=== PATIENT | male | born 1945 | race Caucasian/White ===

== ENCOUNTER 2017-08-18 19:43 | Emergency (ER) | payer OTHER, MEDICARE ==
--- NOTE | 2017-08-18 21:56 | EDPHYS ---
Physician Documentation [facility] Name: Toño Currie Age: 71 yrs Sex: Male : 1945 Arrival Date: 08/18/2017 Time: 19:46 Bed 23 Private MD: Alfredo Dee ED Physician Dhruv Varghese HPI: 08/18 21:50 This 71 yrs old Male presents to ER via Ambulatory with complaints of Fever, alonzo Sinus Congestion. 21:50 The patient reports fever, that was measured at 99.4 degrees Fahrenheit. Onset: The alonzo symptoms/episode began/occurred 3 day(s) ago. Modifying factors: there are no obvious modifying factors. Associated signs and symptoms: Pertinent positives: cough, sinus congestion, sinus drainage. Severity of symptoms: At their worst the symptoms were mild in the emergency department the symptoms are unchanged. The patient has not experienced similar symptoms in the past. Historical: - Allergies: 20:12 No Known Allergies; lk1 - PMHx: 20:12 Hypertension; lk1 - PSHx: 20:12 mole removed that was melanoma; lk1 - Immunization history:: Adult Immunizations up to date. - Social history:: Smoking status: Patient/guardian denies using tobacco. - Family history:: not pertinent. ROS: 21:50 Constitutional: Negative for fever, chills, and weight loss, Eyes: Negative for injury, alonzo pain, redness, and discharge, Neck: Negative for injury, pain, and swelling, Cardiovascular: Negative for chest pain, palpitations, and edema, Respiratory: Negative for shortness of breath, cough, wheezing, and pleuritic chest pain, Abdomen/GI: Negative for abdominal pain, nausea, vomiting, diarrhea, and constipation, Back: Negative for injury and pain, : Negative for injury, bleeding, discharge, and swelling, MS/Extremity: Negative for injury and deformity, Skin: Negative for injury, rash, and discoloration, Neuro: Negative for headache, weakness, numbness, tingling, and seizure, Psych: Negative for depression, anxiety, suicide ideation, homicidal ideation, and hallucinations, Allergy/Immunology: Negative for hives, rash, and allergies, Endocrine: Negative for neck swelling, polydipsia, polyuria, polyphagia, and marked weight changes, Hematologic/Lymphatic: Negative for swollen nodes, abnormal bleeding, and unusual bruising. 21:50 ENT: Positive for sinus congestion, sinus pain. Exam: 21:50 Constitutional: This is a well developed, well nourished patient who is awake, alert, alonzo and in no acute distress. Head/Face: Normocephalic, atraumatic. Eyes: Pupils equal round and reactive to light, extra-ocular motions intact. Lids and lashes normal. Conjunctiva and sclera are non-icteric and not injected. Cornea within normal limits. Periorbital areas with no swelling, redness, or edema. Neck: Trachea midline, no thyromegaly or masses palpated, and no cervical lymphadenopathy. Supple, full range of motion without nuchal rigidity, or vertebral point tenderness. No Meningismus. Chest/axilla: Normal chest wall appearance and motion. Nontender with no deformity. No lesions are appreciated. Cardiovascular: Regular rate and rhythm with a normal S1 and S2. No gallops, murmurs, or rubs. Normal PMI, no JVD. No pulse deficits. Respiratory: Lungs have equal breath sounds bilaterally, clear to auscultation and percussion. No rales, rhonchi or wheezes noted. No increased work of breathing, no retractions or nasal flaring. Abdomen/GI: Soft, non-tender, with normal bowel sounds. No distension or tympany. No guarding or rebound. No evidence of tenderness throughout. Back: No spinal tenderness. No costovertebral tenderness. Full range of motion. Male : Normal genitalia with no discharge or lesions. Skin: Warm, dry with normal turgor. Normal color with no rashes, no lesions, and no evidence of cellulitis. MS/ Extremity: Pulses equal, no cyanosis. Neurovascular intact. Full, normal range of motion. Neuro: Awake and alert, GCS 15, oriented to person, place, time, and situation. Cranial nerves II-XII grossly intact. Motor strength 5/5 in all extremities. Sensory grossly intact. Cerebellar exam normal. Normal gait. Psych: Awake, alert, with orientation to person, place and time. Behavior, mood, and affect are within normal limits. 21:50 ENT: Nose: nasal drainage, that is minimal, and is seen coming from both nares. 21:56 Musculoskeletal/extremity: DVT Exam: No signs of deep vein thrombosis. no pain, no alonzo swelling, no tenderness, negative Homans' sign noted on exam, no appreciated bluish discoloration, no erythema, no increased warmth. Vital Signs: 20:12 BP 138 / 63; Pulse 86; Resp 16; Temp 98.3(TE); Pulse Ox 97% on R/A; Weight 83.91 kg lk1 (R); Height 5 ft. 9 in. (175.26 cm) (R); Pain 0/10; 22:08 BP 136 / 67; Pulse 77; Resp 16; Pulse Ox 97% on R/A; mb3 20:12 Body Mass Index 27.32 (83.91 kg, 175.26 cm) lk1 MDM: 20:51 Patient medically screened. [facility] 21:56 Data reviewed: vital signs, nurses notes. [facility] Administered Medications: 21:55 Drug: Augmentin 875 mg Route: PO; mb3 22:03 Follow up: Response: No adverse reaction mb3 Disposition: 08/18/17 21:56 Discharged to Home. Impression: Fever, unspecified, Acute sinusitis. - Condition is Stable. - Discharge Instructions: Fever, Adult, Sinusitis, Adult, Sinusitis, Igop-br-Btdr. - Prescriptions for Augmentin 875- 125 mg Oral Tablet - take 1 tablet by ORAL route every 12 hours for 10 days; 20 tablet. Medrol (Pete) 4 mg Oral Tablets, Dose Pack - take 1 tablet by ORAL route as directed - follow package instructions; 1 packet. - Medication Reconciliation Form, Thank You Letter, Antibiotic Education, Prescription Opioid Use form. - Follow up: Alfredo Dee MD; When: 2 - 3 days; Reason: Recheck today's complaints, Continuance of care, Re-evaluation by your physician. - Problem is new. - Symptoms have improved. Signatures: Dhruv Varghese MD MD cha Kluge, Leah RN RN lk1 Michael Lopez, RN RN mb3 Corrections: (The following items were deleted from the chart) 22:14 21:56 08/18/2017 21:56 Discharged to Home. Impression: Fever, unspecified; Acute mb3 sinusitis. Condition is Stable. Forms are Medication Reconciliation Form, Thank You Letter, Antibiotic Education, Prescription Opioid Use. Follow up: Alfredo Dee; When: 2 - 3 days; Reason: Recheck today's complaints, Continuance of care, Re-evaluation by your physician. Problem is new. Symptoms have improved. alonzo
--- NOTE | 2017-08-18 21:56 | ER ---
Nurse's Notes [facility] Name: Toño Currie Age: 71 yrs Sex: Male : 1945 Arrival Date: 08/18/2017 Time: 19:46 Bed 23 Private MD: Alfredo Dee Diagnosis: Fever, unspecified;Acute sinusitis Presentation: 08/18 20:10 Presenting complaint: Patient states: I have been having sinus problems for 3-4 weeks. lk1 Transition of care: patient was not received from another setting of care. Onset of symptoms was July 28, 2017. Initial Sepsis Screen: Does the patient meet any 2 criteria? No. Patient's initial sepsis screen is negative. Does the patient have a suspected source of infection? No. Patient's initial sepsis screen is negative. Care prior to arrival: None. 20:10 Method Of Arrival: Ambulatory lk1 20:10 Acuity: MISTI 4 lk1 Triage Assessment: 20:12 General: Appears in no apparent distress. Behavior is calm, cooperative, appropriate lk1 for age. Pain: Denies pain. 20:12 Respiratory: Airway is patent Respiratory effort is even, unlabored, Respiratory lk1 pattern is regular, symmetrical, Sputum is clear blood streaked. Historical: - Allergies: 20:12 No Known Allergies; lk1 - PMHx: 20:12 Hypertension; lk1 - PSHx: 20:12 mole removed that was melanoma; lk1 - Immunization history:: Adult Immunizations up to date. - Social history:: Smoking status: Patient/guardian denies using tobacco. - Family history:: not pertinent. Screenin:13 Abuse screen: Denies threats or abuse. Nutritional screening: No deficits noted. mb3 Tuberculosis screening: No symptoms or risk factors identified. Fall Risk None identified. Assessment: 22:11 General: Appears in no apparent distress. comfortable, Behavior is calm, cooperative, mb3 appropriate for age. Pain: Denies pain. Neuro: No deficits noted. Cardiovascular: No deficits noted. Respiratory: No deficits noted. GI: No deficits noted. No signs and/or symptoms were reported involving the gastrointestinal system. : No deficits noted. No signs and/or symptoms were reported regarding the genitourinary system. Vital Signs: 20:12 BP 138 / 63; Pulse 86; Resp 16; Temp 98.3(TE); Pulse Ox 97% on R/A; Weight 83.91 kg lk1 (R); Height 5 ft. 9 in. (175.26 cm) (R); Pain 0/10; 22:08 BP 136 / 67; Pulse 77; Resp 16; Pulse Ox 97% on R/A; mb3 20:12 Body Mass Index 27.32 (83.91 kg, 175.26 cm) lk1 ED Course: 19:46 Patient arrived in ED. es 19:46 Alfredo Dee MD is Private Physician. es 20:11 Triage completed. lk1 20:14 Arm band placed on right wrist. lk1 20:51 Dhruv Varghese MD is Attending Physician. [facility] 21:55 Alfredo Dee MD is Referral Physician. [facility] 21:56 Michael Lopez, RN is Primary Nurse. mb3 22:13 Patient has correct armband on for positive identification. mb3 22:13 No provider procedures requiring assistance completed. Patient did not have IV access mb3 during this emergency room visit. Administered Medications: 21:55 Drug: Augmentin 875 mg Route: PO; mb3 22:03 Follow up: Response: No adverse reaction mb3 Outcome: 21:56 Discharge ordered by . [facility] 22:14 Discharged to home ambulatory. mb3 22:14 Condition: stable 22:14 Discharge instructions given to patient, Instructed on discharge instructions, follow up and referral plans. medication usage, Demonstrated understanding of instructions, follow-up care, medications, Prescriptions given X 2. 22:14 Patient left the ED. mb3 Signatures: Dhruv Varghese MD MD cha Salyer, Edna es Kluge, Leah RN RN lk1 Michael Lopez RN RN mb3
[2017-08-18] MEDS ORDERED: AMOX/K CLAV 875 MG TAB ONE (22:00)
== END 2017-08-18 22:14 | disposition home or self-care (01) ==
LOC: ER 19:43
DX: J01.90 Acute sinusitis, unspecified (principal)
CPT/HCPCS: 99283

== ENCOUNTER 2017-09-13 06:31 | Day surgery (SDC) | payer OTHER, MEDICARE ==
--- NOTE | 2017-09-12 15:26 | RAD REPORT ---
EXAM DESCRIPTION: RAD - Chest Pa And Lat (2 Views) - 09/12/2017 3:21 pm CLINICAL HISTORY: Hypertension COMPARISON: 05/21/2015 FINDINGS: The lungs are clear. The heart is normal in size. No displaced fractures. IMPRESSION: No acute or concerning finding suspected.
[2017-09-12 16:09] LABS: Absolute Lymphocytes (CBC) 2.9 K/uL (0.7-4.9); Absolute Monocytes 0.5 K/uL (0.1-1.3); Absolute Neutrophil 2.5 K/uL (1.8-8.0); Eosinophils % 4.6 % (0-4.4); Hematocrit 45.2 % (39.6-49.0); Lymphocytes % 46.8 % (15.3-44.8); MCH 30.1 pg (27.0-35.0); MCV 90.2 fL (80-100); MPV 8.1 fL (7.6-11.3); Monocytes % 7.5 % (3.3-12.3); RBC Red Blood Cell Count 5.01 M/uL (4.33-5.43)
[2017-09-12 16:14] LABS: BUN Blood Urea Nitrogen 16 mg/dL (6-20); Bicarbonate 29 mEq/L (21-31); Glucose Level 111 mg/dL (65-120); Potassium 3.7 mEq/L (3.6-5.0); Sodium Level 138 mEq/L (135-145)
--- NOTE | 2017-09-13 06:23 | EKG ---
Test Date: 2017-09-12 Test Time: 15:09:21 [facility] Supervisor: DENISE MEASUREMENT RESULTS: Intervals: Rate: 79 MN: 158 QRSD: 94 QT: 392 QTc: 449 [place]: P: 65 MN: 158 QRS: 55 T: 56 INTERPRETIVE STATEMENTS: Sinus rhythm with occasional premature ventricular complexes Otherwise normal ECG Compared to ECG 05/21/2015 13:42:59 Ventricular premature complex(es) now present Electronically Signed On 09-13-17 06:22:33 CDT by Clemente Hutson
[2017-09-13] MEDS ORDERED: Ringers Lactate 1,000 ML IV ONE (07:19)
[2017-09-13] MEDS ORDERED: CEFAZOLIN/SWI 1gm 1 GM/10 ML SYR ONE (07:20)
[2017-09-13] MEDS ORDERED: LIDOCAINE 1% MPF 5 ML VIAL ONE (10:02)
[2017-09-13] MEDS ORDERED: PROPOFOL 200 MG/20 ML VIAL IV ONE (10:02)
[2017-09-13] MEDS ORDERED: FENTANYL CITR 100 MCG/2 ML ONE (10:03)
[2017-09-13] MEDS ORDERED: KETOROLAC 30 MG/ML INJ ONE (10:31)
--- NOTE | 2017-09-13 11:10 | P.BOP ---
Preoperative diagnosis: tender back subcutaneous mass x 2 Postoperative diagnosis: same Primary procedure: 1. Excisional biopsy upper back subcutaneous mass 4x4cm with layer closure Secondary procedure: 2. Excisional biopsy mid back subcutaneous mass 2x2cm with layer closure Estimated blood loss: <10cc Specimen: masses Findings: as above Anesthesia: General Complications: None Transferred to: Recovery Room Condition: Good
--- NOTE | 2017-09-15 01:45 | OP ---
Date of Procedure: 09/13/2017 Surgeon: Cullen Osorio MD Preoperative Diagnosis: Tender back, subcutaneous mass x2. Postoperative Diagnosis: Tender back, subcutaneous mass x2. Procedures: 1.Excisional biopsy of upper back subcutaneous mass 4 x 4 cm with layered closure. 2.Excisional biopsy of mid back subcutaneous mass 2 x 2 cm with layered closure. Specimen: Masses. Anesthesia: General plus local. Indications: This is the case of a 72-year-old patient, who came to us with 2 masses. They are incr easing in size and giving him pain and discomfort. He wants them excised. The benefits, alternative s, and risks of excision were fully explained which include but are not limited to infection, bleedin g, damage to adjacent structures, anesthesia complication, nonhealing wound, CT, and even . He also understands this may not relieve any symptoms. He might need more than one surgical interventio n. He understood and signed the consent. The area of concern was marked by me and the patient in the holding room. The patient has history of melanoma that is what he wants them excised. Procedure In Detail: The patient was brought to the operating room, placed in supine position. Anes thesia was done without complication. The patient was placed in lateral decubitus position with prop er protection. Both areas were prepped and draped in sterile fashion. These were in 2 different loc ations, so we had made 2 different incisions on the skin. The first one was done in the upper back a zully that was 4 x 4 cm in size. A wedge incision of the skin was done to include the skin and subcuta neous tissue to get. This went all the way down to the fascia of the muscle but does not penetrate t he muscle. The mass was completely excised. The area was irrigated. Hemostasis obtained and the ar ea was closed with 0 chromic layers approximating the fascia and 0 chromic approximating the subcutan eous tissue. Then the skin was closed with 2-0 nylon in a suture mattress fashion multiple times. T his was after irrigation and suction and after applying local anesthetic. Then, we went to the lower back area, when we proceed to do the same way. A wedge incision in the sk in all the way to the deep subcutaneous tissue. The area was irrigated. Hemostasis obtained. We pr oceeded to close the area with 0 chromic in the deep tissues, 3-0 chromic in the mid tissue, and then a zojyaf-tc-bhord fashion 2-0 nylon in the outside area. Each mass was sent individually. The armida ent tolerated the procedure well. Area was covered with sterile dressings. Sponge count and instrum ent counts were correct. The patient sent to recovery in stable condition. DISCHARGE SUMMARY Diagnosis: Tender back subcutaneous masses. Procedure: Excisional biopsy, upper back and midback subcutaneous masses. Disposition: Home. Activity: As tolerated. No heavy lifting. Followup: Follow up in my office in 1 week. Call for appointment [phone]. Keep area dry for 48 ho urs, then may shower. Medications: See orders. TRANG/MODL Voice ID: [id number] Report ID: [id number]
== END 2017-09-13 12:50 | disposition home or self-care (01) ==
LOC: OR 06:31
PROVIDERS: ATTEND Surgery
PROC: 0JB70ZZ Excision of Back Subcutaneous Tissue and Fascia, Open Approach (ICD-10-PCS; 2017-09-13)
PROC: 0JB70ZZ Excision of Back Subcutaneous Tissue and Fascia, Open Approach (ICD-10-PCS; 2017-09-13)
PROC: 0JQ70ZZ Repair Back Subcutaneous Tissue and Fascia, Open Approach (ICD-10-PCS; principal; 2017-09-13 08:15)
DX: L72.0 Epidermal cyst (principal); I10 Essential (primary) hypertension; Z85.9 Personal history of malignant neoplasm, unspecified; Z82.49 Family history of ischemic heart disease and other diseases of the circulatory system; Z80.9 Family history of malignant neoplasm, unspecified
CPT/HCPCS: 11402; 11404; 12032; 36415; 71046; 80048; 85025; 88304; 93005; J0690; J3010

== ENCOUNTER 2018-04-09 07:37 | Day surgery (SDC) | payer OTHER, MEDICARE ==
[2018-04-09] MEDS ORDERED: EPINEPHRINE/PF 1 MG/ML AMP ONE (08:07)
[2018-04-09] MEDS ORDERED: DUOVISC 1 KIT OPTH ONE (08:07)
[2018-04-09] MEDS ORDERED: NS 0.9% VIAL 10 ML ONE (08:07)
[2018-04-09] MEDS ORDERED: BALANCED SALT IRRIG PLAIN 500 ML BTL IRR ONE (08:07)
[2018-04-09] MEDS ORDERED: LIDOCAINE 1% MPF 2 ML AMPULE ONE (08:08)
[2018-04-09] MEDS ORDERED: MOXIFLOXACIN HCL 10 DROPS/ML **OR USE OPTH ONE (08:08)
[2018-04-09] MEDS ORDERED: BUPIVACAINE 0.25% PF 10 ML VIAL ONE (08:37)
[2018-04-09] MEDS ORDERED: TETRACAINE HCL 0.5% 2ML OPTH ONE (08:37)
[2018-04-09] MEDS ORDERED: LIDOCAINE 2% MPF 5 ML VIAL ONE (08:37)
[2018-04-09] MEDS ORDERED: NA CHLORIDE 0.9% 500 ML ONE (08:38)
[2018-04-09] MEDS ORDERED: LIDOCAINE HCL/PF 3.5% OPTH GEL ONE (08:48)
[2018-04-09] MEDS: CYCLOPENTOLATE 1% OPTH 2 ML ONE ×3 (08:53→09:03)
[2018-04-09] MEDS ORDERED: MIDAZOLAM HCL 2 MG/2 ML INJ ONE (10:09)
[2018-04-09] MEDS ORDERED: FENTANYL CITR 100 MCG/2 ML ONE (10:26)
--- NOTE | 2018-04-09 10:41 | P.BOP ---
Preoperative diagnosis: Nuclear sclerotic cataract OD Postoperative diagnosis: Same Primary procedure: Phacoemulsification with IOL OD Estimated blood loss: None Anesthesia: Local (Topical with anesthesia for cataract surgery) Complications: None Implants: ZCB00 +21.5 Transferred to: Other (Day surgery) Condition: Good
--- NOTE | 2018-04-09 22:24 | OP ---
Date of Procedure: 04/09/2018 Surgeon: Riya Lockhart MD Anesthesiologist: Maynor Velasquez CRNA and Vini Aguayo M.D. Preoperative Diagnosis: Nuclear sclerotic cataract, OD. Operation Performed: Phacoemulsification with intraocular lens implant, OD. Anesthesia: Per cataract surgery. Complications: None. Description Of Procedure: In the operating room the patient was prepped and draped in the usual sterile fashion for ophthalmic surgery. A lid speculum was placed in the OD. Two paracentesis sites were made superiorly and inferiorly in the limbal cornea. Viscoat was placed in the anterior chamber and a crescent blade was used to make a corneal groove and tunnel, and a keratome was used to enter the anterior chamber. Provisc was placed in the anterior chamber and a 360 degree capsulotomy was performed with a cystitome. The lens was hydrodissected with BSS and rotated freely. The lens was removed with a stop and chop technique. 16.96 phaco CDE was used to remove the lens. Residual cortex was removed with the irrigation and aspiration. Provisc was placed in the capsular bag. A ZCB00 +21.5 lens was placed in the capsular bag without complications. Irrigation and aspiration were used to remove residual viscoelastic. The paracentesis sites were hydrated with BSS. The wound and paracentesis sites were inspected and found to be watertight. Vigamox 0.07 cc was placed intracamerally at the end of the procedure. The eye was irrigated with balanced salt solution. The eye was patched with a soft cotton patch and Lazaro metal shield. The patient was returned to day surgery in good condition. Comments: Akten was placed in the eye in day surgery and irrigated out of the eye with BSS in the OR. Preservative-free 1% lidocaine was placed in the anterior chamber prior to Viscoat. Discharge Instructions: Mr. Currie was discharged home in good condition and is to follow up with Dr. Lockhart in the morning. WAYNE/GAB Voice ID: [id number] Report ID: [id number]
== END 2018-04-09 11:50 | disposition home or self-care (01) ==
LOC: OR 07:37
PROVIDERS: ATTEND Ophthalmology Retina Specialist
PROC: 08RJ3JZ Replacement of Right Lens with Synthetic Substitute, Percutaneous Approach (ICD-10-PCS; principal; 2018-04-09 09:30)
DX: H25.11 Age-related nuclear cataract, right eye (principal); H04.123 Dry eye syndrome of bilateral lacrimal glands; H53.002 Unspecified amblyopia, left eye; I10 Essential (primary) hypertension; E78.00 Pure hypercholesterolemia, unspecified; Z85.820 Personal history of malignant melanoma of skin; Z82.49 Family history of ischemic heart disease and other diseases of the circulatory system
CPT/HCPCS: 66984; J0171; J2001; J2250; J3010

== ENCOUNTER 2018-05-21 09:46 | Day surgery (SDC) | payer OTHER, MEDICARE ==
[2018-05-21] MEDS ORDERED: LIDOCAINE HCL/PF 3.5% OPTH GEL ONE (10:20)
[2018-05-21] MEDS ORDERED: NA CHLORIDE 0.9% 500 ML ONE (10:20)
[2018-05-21] MEDS ORDERED: TETRACAINE HCL 0.5% 2ML OPTH ONE (10:20)
[2018-05-21] MEDS ORDERED: BUPIVACAINE 0.25% PF 10 ML VIAL ONE (10:20)
[2018-05-21] MEDS ORDERED: LIDOCAINE 2% MPF 5 ML VIAL ONE (10:20)
[2018-05-21] MEDS: CYCLOPENTOLATE 1% OPTH 2 ML ONE ×3 (10:26→10:46)
[2018-05-21] MEDS: PHENYLEPHRINE 10% OPTH 5ML ONE ×3 (10:26→10:46)
[2018-05-21] MEDS ORDERED: NS 0.9% VIAL 10 ML ONE (10:54)
[2018-05-21] MEDS ORDERED: EPINEPHRINE/PF 1 MG/ML AMP ONE (10:54)
[2018-05-21] MEDS ORDERED: LIDOCAINE 1% MPF 2 ML AMPULE ONE (10:55)
[2018-05-21] MEDS ORDERED: DUOVISC 1 KIT OPTH ONE (10:55)
[2018-05-21] MEDS ORDERED: MOXIFLOXACIN HCL 10 DROPS/ML **OR USE OPTH ONE (10:55)
[2018-05-21] MEDS ORDERED: BALANCED SALT IRRIG PLAIN 500 ML BTL IRR ONE (10:55)
[2018-05-21] MEDS ORDERED: MIDAZOLAM HCL 2 MG/2 ML INJ ONE (11:45)
[2018-05-21] MEDS ORDERED: FENTANYL CITR 100 MCG/2 ML ONE (11:45)
[2018-05-21] MEDS ORDERED: LIDOCAINE 1% MPF 5 ML VIAL ONE (12:08)
--- NOTE | 2018-05-21 12:12 | P.BOP ---
Preoperative diagnosis: Nuclear sclerotic cataract OS Postoperative diagnosis: Same Primary procedure: Phacoemulsification with IOL OS Estimated blood loss: None Anesthesia: Local (Topical with anesthesia for cataract surgery) Complications: None Implants: ZCB00 +21.0 Transferred to: Other (Day surgery) Condition: Good
--- NOTE | 2018-05-21 21:05 | OP ---
Date of Procedure: 05/21/2018 Surgeon: Riya Lockhart MD Anesthesiologist: Luther Grossman CRNA, and Vini Aguayo M.D. Preoperative Diagnosis: Nuclear sclerotic cataract, OS (left eye). Operation Performed: Phacoemulsification with intraocular lens implant, left eye. Anesthesia: Per cataract surgery. Complications: None. Description Of Procedure: In the operating room the patient was prepped and draped in the usual ster ile fashion for ophthalmic surgery. A lid speculum was placed in the left eye. Two paracentesis sit es were made superiorly and inferiorly in the limbal cornea. Viscoat was placed in the anterior regina onur and a crescent blade was used to make a corneal groove and tunnel, and a keratome was used to ent er the anterior chamber. Provisc was placed in the anterior chamber and a 360 degree capsulotomy was performed with a cystitome. The lens was hydrodissected with BSS and rotated freely. The lens was removed with a stop and chop technique. A 20.66 phaco CDE was used to remove the lens. Residual cor bart was removed with the irrigation and aspiration. Provisc was placed in the capsular bag. A ZCB00 +21.0 lens was placed in the capsular bag without complications. Irrigation and aspiration was used to remove residual viscoelastic. The paracentesis sites were hydrated with BSS. The wound and para centesis sites were inspected and found to be watertight. Vigamox 0.07 cc was placed intracamerally at the end of the procedure. The eye was irrigated with balanced salt solution. The eye was patched with a soft cotton patch and Lazaro metal shield. The patient was returned to day surgery in good condition. Comments: Akten was placed in the eye in Day Surgery and irrigated out of the eye with BSS in the OR . Preservative-free 1% lidocaine was placed in the anterior chamber prior to Viscoat. Discharge Instructions: Mr. Currie is discharged to home in good condition and is to follow up w deirdre Lockhart in the morning. WAYNE/GAB Voice ID: [id number] Report ID: [id number]
== END 2018-05-21 12:37 | disposition home or self-care (01) ==
LOC: OR 09:46
PROVIDERS: ATTEND Ophthalmology Retina Specialist
PROC: 08RK3JZ Replacement of Left Lens with Synthetic Substitute, Percutaneous Approach (ICD-10-PCS; principal; 2018-05-21 10:30)
DX: H25.12 Age-related nuclear cataract, left eye (principal); E78.00 Pure hypercholesterolemia, unspecified; Z79.899 Other long term (current) drug therapy
CPT/HCPCS: 66984; J0171; J2001; J2250; J3010

== ENCOUNTER 2021-07-07 19:54 | Emergency (ER) | payer OTHER, MEDICARE ==
--- OUTSIDE RECORDS SUMMARY | 2021-07-07 19:57 | XMS REPORT | Continuity of Care Document ---
:1945 Author Organization [facility] t Address [address] [place] [address] Care Team Providers Name Role Phone [phone] Primary Care Physician Unavailable MALCOM Attending Clinician Unavailable IRVING Attending Clinician Unavailable Malcom GODINEZ Attending Clinician CHRISTOPHER BAPTISTE Attending Clinician Unavailable Payers Payer Name Policy Type Policy Number Effective Date Expiration Date S ource MEDICARE PART A \T\ [id number] B - MEDICARE [facility] MEDICARE [id number] SUPPLEMENT PLAN - [facility] MEDICARE PART A AND [id number] 2009 B 00:00:00 AAR-SECONDARY ONLY [id number] 2009 00:00:00 Problems This patient has no known problems. Allergies, Adverse Reactions, Alerts This patient has no known allergies or adverse reactions. Social History Social Habit Start Date Stop Date Quantity Comments Source Exposure to Not sure [facility] Narinder wagoner SARS-CoV-2 of Medicine (event) Alcohol intake 2019-09-20 2019-09-20 Current [facility] 00:00:00 00:00:00 non-drinker of of Medicin e alcohol (finding) Tobacco use and 2019-09-20 2019-09-20 Never used [facility] exposure 00:00:00 00:00:00 of Medicine Sex [birth year] [facility] 00:00:00 00:00:00 of Medicine Smoking Status Start Date Stop Date Source Never smoker [facility] o f Medicine Medications Ordered Filled Start Stop Current Ordering Indication Dosage Frequency Signature Comments Components Source Medication Medication Date Date Medication? Clinician (SIG) Name Name lovastatin 2019-04 Yes 20mg Take 20 mg [facility] (MEVACOR) 2-18 by mouth [facility] 20 MG 19:09: every of tablet 00 evening. Medicin e amlodipine 2019-04 Yes 5mg Take 5 mg [facility] (NORVASC) 5 2-18 by mouth [facility] tablet 19:09: daily. of 00 Medicin e lovastatin Yes 20mg Take 20 mg [facility] (MEVACOR) 4-12 by mouth [facility] 20 MG 17:59: every of tablet 11 evening. Medicin e amlodipine Yes 5mg Take 5 mg [facility] (NORVASC) 5 4-12 by mouth [facility] MG tablet 17:59: daily. of 11 Medicin e lovastatin Yes 20mg Take 20 mg [facility] (MEVACOR) 4-12 by mouth [facility] 20 MG 17:59: every of tablet 11 evening. Medicin e amlodipine Yes 5mg Take 5 mg [facility] (NORVASC) 5 4-12 by mouth [facility] tablet 17:59: daily. of 11 Medicin e Vital Signs Vital Name Observation Time Observation Value Comments Source Systolic blood 2020-03-20 19:07:00 162 mm[Hg] [facility] pressure Medicine Diastolic blood 2020-03-20 19:07:00 79 mm[Hg] [facility] pressure Medicine Heart rate 2020-03-20 19:07:00 58 /min [facility] Body temperature 2020-03-20 19:07:00 36.83 [facility] Body weight 2020-03-20 19:07:00 83.915 kg [facility] BMI 2020-03-20 19:07:00 27.32 kg/m2 [facility] Systolic blood 2019-09-20 18:39:00 136 mm[Hg] [facility] pressure Medicine Diastolic blood 2019-09-20 18:39:00 72 mm[Hg] [facility] pressure Medicine Heart rate 2019-09-20 18:39:00 61 /min [facility] Body height 2019-09-20 18:39:00 175.3 cm [facility] of Medicine Body weight 2019-09-20 18:39:00 77.111 kg [facility] ol[facility] of Medicine BMI 2019-09-20 18:39:00 25.10 kg/m2 [facility] Systolic blood 2019-09-20 18:39:00 136 mm[Hg] [facility] pressure Medicine Diastolic blood 2019-09-20 18:39:00 72 mm[Hg] [facility] pressure Medicine Heart rate 2019-09-20 18:39:00 61 /min [facility] Body height 2019-09-20 18:39:00 175.3 cm [facility] Body weight 2019-09-20 18:39:00 77.111 kg [facility] BMI 2019-09-20 18:39:00 25.10 kg/m2 [facility] Procedures Procedure Date / Time Performed Performing Clinician Sour e POCT URINALYSIS 2019-09-20 00:00:00 Roberto العراقي [facility] conchis of DIPSTICK Medicine Plan of Care Planned Activity Planned Date Details Comments Source Diagnostic Test 2020-04-03 TESTOSTERONE-TOTAL( Expected: [employer] Pending 00:00:00 [facility] DEPT) [code = 04/03/2020 of Medicin e 2986-8] (Approximate), Expires: 04/19/2020 Diagnostic Test 2020-04-03 PHI PANEL (URO Expected: [facility] Pending 00:00:00 DEPT) [code = 04/03/2020 of Medicine 14500] (Approximate), Expires: 04/19/2020 Future Scheduled MEDICARE AWV [code [facility] Test = MEDICARE AWV] of Medicine Future Scheduled BMI FOLLOW UP PLAN [facility] [place] Test [code = BMI FOLLOW of Medici ne UP PLAN] Future Scheduled HEPATITIS C [facility] Test SCREENING [code = of Medicin e HEPATITIS C SCREENING] Future Scheduled FALL SCREEN [code = [employer] [facility] FALL SCREEN] of Medicine Future Scheduled PNEUMOVAX >=65 [facility] Test (PPSV23) [code = of Medicine PNEUMOVAX >=65 (PPSV23)] Future Scheduled PREVNAR >= 65 [facility] Test (PCV13) [code = of Medicine PREVNAR >= 65 (PCV13)] Future Scheduled FLU VACCINE > 6 [facility] Test MONTHS [code = FLU of Medici ne VACCINE > 6 MONTHS] Future Scheduled TETANUS SHOT [facility] Test (ADULT) [code = of Medicine TETANUS SHOT (ADULT)] Future Scheduled COLON CANCER [facility] Test SCREENING: of Medicine COLONOSCOPY [code = COLON CANCER SCREENING: COLONOSCOPY] Future Scheduled TETANUS SHOT [facility] Test (ADULT) [code = of Medicine TETANUS SHOT (ADULT)] Future Scheduled BMI FOLLOW UP PLAN [employer] Test [code = BMI FOLLOW of Medici ne UP PLAN] Future Scheduled HEPATITIS C [facility] Test SCREENING [code = of Medicin e HEPATITIS C SCREENING] Future Scheduled MEDICARE AWV [facility] Test (Initial) [code = of Medicin e MEDICARE AWV (Initial)] Future Scheduled FALL SCREEN [code = [employer] Test FALL SCREEN] of Medicine Future Scheduled PNEUMOVAX >=65 [facility] Test (PPSV23) [code = of Medicine PNEUMOVAX >=65 (PPSV23)] Future Scheduled FLU VACCINE > 6 [facility] Test MONTHS [code = FLU of Medici ne VACCINE > 6 MONTHS] Future Scheduled COLON CANCER [facility] [place] [facility] Test SCREENING: of Medicine COLONOSCOPY [code = COLON CANCER SCREENING: COLONOSCOPY] Future Scheduled BMI FOLLOW UP PLAN [employer] Test [code = BMI FOLLOW of Medici ne UP PLAN] Future Scheduled HEPATITIS C [facility] Test SCREENING [code = of Medicin e HEPATITIS C SCREENING] Future Scheduled ZOSTER VACCINE (1 [facility] Test of 2) [code = of Medicine ZOSTER VACCINE (1 of 2)] Future Scheduled MEDICARE AWV [facility] Test (Initial) [code = of Medicin e MEDICARE AWV (Initial)] Future Scheduled FALL SCREEN [code = [employer] Test FALL SCREEN] of Medicine Future Scheduled PNEUMOVAX >=65 [facility] Test (PPSV23) [code = of Medicine PNEUMOVAX >=65 (PPSV23)] Future Scheduled FLU VACCINE > 6 [facility] Test MONTHS [code = FLU of Medici ne VACCINE > 6 MONTHS] Future Scheduled TETANUS SHOT [facility] Test (ADULT) [code = of Medicine TETANUS SHOT (ADULT)] Future Scheduled COLON CANCER [facility] Test SCREENING: of Medicine COLONOSCOPY [code = COLON CANCER SCREENING: COLONOSCOPY] Encounters Start End Encounter Admission Attending Care Care Encounter Source Date/Time Date/Time Type Type Clinicians Facility Department ID 2021-03-19 2021-03-19 Outpatient ROBERTO العراقي [facility] [id number] [facility] 12:11:50 14:01:24 Colleg [facility] of Medicin e 2020-09-25 2020-09-25 Outpatient ROBERTO العراقي [facility] [id number] [facility] 12:35:28 14:02:01 Colleg [facility] of Medicin e 2020-09-24 2020-09-24 Outpatient GET GOODWIN CAITLYN BRADY [id number] 09:48:01 10:19:30 Uche hidalgo 2020-03-20 2020-03-20 Office Roberto العراقي [facility] [id number] [facility] 11:34:24 11:49:24 Visit AMBULATOR [id number] College Y 0.2.7.2.686 of [id number] Medi hima 300 e 2020-01-17 2020-01-17 Outpatient JOSEMANUEL BAPTISTE CAIT[facility]N BRADY [id number] 11:28:38 23:59:00 SVETLANA hidalgo 2020-01-17 2020-01-17 Outpatient JOSEMANUEL BAPTISTECAITLYN MDA [id number] 13:04:29 13:32:12 SVETLANA hidalgo 2019-09-26 2019-09-26 Outpatient GET GOODWIN CAITLYN BRADY [id number] 13:46:14 14:20:35 Uche hidalgo 2019-09-20 2019-09-20 Office Roberto العراقي [facility] [id number] [facility] 10:57:37 13:23:56 Visit AMBULATOR [id number] College Y 0.2.7.2.686 of [id number] Medi hima 300 e 2019-09-20 2019-09-20 [id number] 10:57:37 13:23:56 Visit AMBULATOR 350.1.13.21 Y 0.2.7.2.686 [id number] 300 2019-01-14 2019-01-14 Office Roberto العراقي [facility] [id number] [facility] 12:47:03 13:55:44 Visit AMBULATOR 350.1.13.21 College Y 0.2.7.2.686 of [id number] Medi hima 300 e Results Test Description Test Time Test Comments Results Result Comments Source POCT URINALYSIS DIPSTICK 2019-09-20 00:00:00 Test Item Value Reference Range Interpretation Comme nts COLOR UA (test code = 5778-6) Yellow YELLOW/STRAW CLARITY UA (test code = 05142-2) Clear CLEAR GLUCOSE UA (test code = 5792-7) Negative NEGATIVE BILIRUBIN UA (test code = 5770-3) Negative NEGATIVE KETONES UA (test code = 63673-9) Negative NEGATIVE SPECIFIC GRAVITY UA (test code = 5811-5) 1.005-1.035 BLOOD UA (test code = 5794-3) Negative NEGATIVE PH UA (test code = 5803-2) 5-9 PROTEIN UA (test code = 5804-0) Negative NEGATIVE UROBILINOGEN UA (test code = 5818-0) 0.02 E.U/DL NORMAL MG/DL LEUKOCYTE ESTERASE UA (test code = 5799-2) Negative NEGATIVE NITRITE UA (test code = 5802-4) Negative NEGATIVE REDUCING SUBSTANCES URINE (test code = 46154-0) [facility]
[2021-07-07 21:42] LABS: Urine Blood 3+ (Negative); Urine Glucose Negative (Negative); Urine Protein 2+ (Negative)
[2021-07-07] MEDS ORDERED: CEFTRIAXONE 1000 MG/VIAL ONE (21:54)
[2021-07-07] MEDS ORDERED: NA CHLORIDE 0.9% 1,000 ML ONE (21:55)
[2021-07-07 22:02] LABS: Absolute Lymphocytes (CBC) 2.4 K/uL (0.7-4.9); Hematocrit 44.1 % (39.6-49.0); Lymphocytes % 38.1 % (15.3-44.8); MPV 7.4 fL (7.6-11.3); RBC Red Blood Cell Count 4.95 M/uL (4.33-5.43)
[2021-07-07 22:03] LABS: Urine Bacteria NONE SEEN /HPF (NONE SEEN); Urine RBC >50 /HPF (NONE SEEN)
[2021-07-07 22:58] LABS: Albumin 3.6 g/dL (3.4-5.0); Bilirubin Total 0.6 mg/dL (0.2-1.0); Potassium 3.8 mmol/L (3.5-5.1); Protein, Total 6.9 g/dL (6.4-8.2)
--- NOTE | 2021-07-07 22:59 | RAD REPORT ---
EXAM DESCRIPTION: CTAbdomen Pelvis W Contrast - 07/07/2021 10:51 pm CLINICAL HISTORY: ABD PAIN COMPARISON: No comparisons TECHNIQUE: CT of the abdomen and pelvis was performed. All CT scans are performed using dose optimization technique as appropriate and may include automated exposure control or mA/KV adjustment according to patient size. FINDINGS: Lower chest: No acute abnormality. Liver: No acute abnormality or suspicious lesions. Biliary: Cholelithiasis. No CT evidence of acute cholecystitis Stomach: No significant focal abnormality. Duodenum: No significant focal abnormality. Pancreas: No significant abnormality. Spleen: No significant abnormality. Adrenal: No suspicious lesions. Kidney/ureter: No hydronephrosis. No renal calculi. No suspicious renal masses identified. Retroperitoneum: No retroperitoneal adenopathy. Vascular: Atherosclerosis. Bowel: Normal appendix. No bowel obstruction.. Peritoneum: No ascites or free air. Small fat containing umbilical hernia. Bladder: Grossly unremarkable. Reproductive: Marked prostatomegaly. The prostate measures 6.3 cm in transverse dimension. Bones: No acute fracture. Multilevel degenerative changes are present in the spine. Other: n/a IMPRESSION: Marked prostatomegaly but no other specific CT findings to explain hematuria.
[2021-07-07] MEDS ORDERED: CIPROFLOXACIN HCL 500 MG TAB ONE (23:20)
[2021-07-07] MEDS ORDERED: TAMSULOSIN 0.4 MG SR CAP ONE (23:20)
--- NOTE | 2021-07-07 23:24 | EDPHYS ---
Physician Documentation [facility] Name: Toño Currie Age: 75 yrs Sex: Male : 1945 Arrival Date: 07/07/2021 Time: 19:57 Bed 26 Private MD: ED Physician Dhruv Varghese HPI: 07/07 23:13 This 75 yrs old Male presents to ER via Ambulatory with complaints of Urinary alonzo Problem. 23:13 The patient presents with urinary symptoms, dysuria, urinary frequency, every 1 alonzo hour(s). Onset: The symptoms/episode began/occurred just prior to arrival. Modifying factors: The symptoms are alleviated by remaining still. Associated signs and symptoms: The patient has no apparent associated signs or symptoms. Severity of symptoms: At their worst the symptoms were mild, in the emergency department the symptoms are unchanged. The patient has not experienced similar symptoms in the past. Historical: - Allergies: 20:12 No Known Allergies; ld1 - Home Meds: 20:12 amlodipine 5 mg tab 1 tab once daily [Active]; lovastatin 20 mg Oral Tb24 1 tab once ld1 daily [Active]; - PMHx: 20:12 Hypertension; Hypercholesterolemia; ld1 - PSHx: 20:12 None; ld1 - Immunization history:: Adult Immunizations up to date, Client reports receiving the 2nd dose of the Covid vaccine. - Social history:: Smoking status: Patient denies any tobacco usage or history of. Patient/guardian denies using alcohol. ROS: 23:15 Constitutional: Negative for fever, chills, and weight loss, Eyes: Negative for injury, alonzo pain, redness, and discharge, ENT: Negative for injury, pain, and discharge, Neck: Negative for injury, pain, and swelling, Cardiovascular: Negative for chest pain, palpitations, and edema, Respiratory: Negative for shortness of breath, cough, wheezing, and pleuritic chest pain, Abdomen/GI: Negative for abdominal pain, nausea, vomiting, diarrhea, and constipation, Back: Negative for injury and pain, MS/Extremity: Negative for injury and deformity, Skin: Negative for injury, rash, and discoloration, Neuro: Negative for headache, weakness, numbness, tingling, and seizure, Psych: Negative for depression, anxiety, suicide ideation, homicidal ideation, and hallucinations, Allergy/Immunology: Negative for hives, rash, and allergies, Endocrine: Negative for neck swelling, polydipsia, polyuria, polyphagia, and marked weight changes, Hematologic/Lymphatic: Negative for swollen nodes, abnormal bleeding, and unusual bruising. 23:15 : Positive for urinary frequency, hematuria, burning with urination. Exam: 23:15 Constitutional: This is a well developed, well nourished patient who is awake, alert, alonzo and in no acute distress. Head/Face: Normocephalic, atraumatic. Eyes: Pupils equal round and reactive to light, extra-ocular motions intact. Lids and lashes normal. Conjunctiva and sclera are non-icteric and not injected. Cornea within normal limits. Periorbital areas with no swelling, redness, or edema. ENT: Nares patent. No nasal discharge, no septal abnormalities noted. Tympanic membranes are normal and external auditory canals are clear. Oropharynx with no redness, swelling, or masses, exudates, or evidence of obstruction, uvula midline. Mucous membranes moist. Neck: Trachea midline, no thyromegaly or masses palpated, and no cervical lymphadenopathy. Supple, full range of motion without nuchal rigidity, or vertebral point tenderness. No Meningismus. Chest/axilla: Normal chest wall appearance and motion. Nontender with no deformity. No lesions are appreciated. Cardiovascular: Regular rate and rhythm with a normal S1 and S2. No gallops, murmurs, or rubs. Normal PMI, no JVD. No pulse deficits. Respiratory: Lungs have equal breath sounds bilaterally, clear to auscultation and percussion. No rales, rhonchi or wheezes noted. No increased work of breathing, no retractions or nasal flaring. Abdomen/GI: Soft, non-tender, with normal bowel sounds. No distension or tympany. No guarding or rebound. No evidence of tenderness throughout. Back: No spinal tenderness. No costovertebral tenderness. Full range of motion. Skin: Warm, dry with normal turgor. Normal color with no rashes, no lesions, and no evidence of cellulitis. MS/ Extremity: Pulses equal, no cyanosis. Neurovascular intact. Full, normal range of motion. Neuro: Awake and alert, GCS 15, oriented to person, place, time, and situation. Cranial nerves II-XII grossly intact. Motor strength 5/5 in all extremities. Sensory grossly intact. Cerebellar exam normal. Normal gait. Psych: Awake, alert, with orientation to person, place and time. Behavior, mood, and affect are within normal limits. 23:15 : Male external genitalia: normal. Vital Signs: 20:12 BP 131 / 70; Pulse 80; Resp 18; Temp 98.9(TE); Pulse Ox 99% on R/A; Weight 83.01 kg; ld1 Height 5 ft. 9 in. (175.26 cm); Pain 0/10; 22:30 BP 143 / 69; Pulse 81; Resp 18; Pulse Ox 98% on R/A; jb4 20:12 Body Mass Index 27.02 (83.01 kg, 175.26 cm) ld1 MDM: 20:27 [facility] 21:15 Order name: CBC with Diff; Complete Time: 23:12 [facility] 07/[facility] 21:15 Order name: CMP; Complete Time: 23:12 [facility] 07/07 21:15 Order name: Lipase; Complete Time: 23:12 [facility] 07/07 21:15 Order name: Urine Microscopic Only; Complete Time: 23:12 [facility] 07/07 21:16 Order name: Urine Culture [facility] 07/07 21:42 Order name: Urine Dipstick-Ancillary; Complete Time: 21:59 [facility] 07/07 21:15 Order name: CT Abd/Pelvis - IV Contrast Only; Complete Time: 23:12 [facility] 07/07 21:15 Order name: IV Saline Lock; Complete Time: 21:44 [facility] 07/07 21:15 Order name: Labs collected and sent; Complete Time: 21:44 [facility] 07/07 21:15 Order name: Urine Dipstick-Ancillary (obtain specimen); Complete Time: 21:43 [facility] 07/07 21:51 Order name: Bladder Scanner: note pvr; Complete Time: 23:05 [facility] Administered Medications: 22:04 Drug: NS 0.9% 500 ml Route: IV; Rate: bolus; Site: right antecubital; jb4 22:34 Follow up: Response: No adverse reaction; IV Status: Completed infusion; IV Intake: jb4 500ml 22:04 Drug: Rocephin (cefTRIAXone) 1 grams Route: IV; Rate: per protocol; Site: right jb4 antecubital; 22:15 Follow up: Response: No adverse reaction; IV Status: Completed infusion jb4 22:35 Drug: NS 0.9% 1000 ml Route: IV; Rate: 125 ml/hr; Site: right forearm; jb4 23:54 Follow up: Response: No adverse reaction; IV Status: Order to discontinue infusion jb4 23:20 Drug: Flomax (tamsulosin) 0.4 mg Route: PO; tw5 23:54 Follow up: Response: No adverse reaction jb4 23:20 Drug: Cipro (ciprofloxacin) 500 mg Route: PO; tw5 23:54 Follow up: Response: No adverse reaction jb4 Disposition Summary: 07/07/21 23:24 Discharge Ordered Location: Home alonzo Problem: new alonzo Symptoms: have improved alonzo Condition: Stable alonzo Diagnosis - Hematuria, unspecified alonzo - Disorder of prostate, unspecified - prostamegaly, prostrate cancer alonzo - Dysuria alonzo Followup: alonzo - With: Private Physician - When: 2 - 3 days - Reason: Recheck today's complaints, Continuance of care, Re-evaluation by your physician Followup: alonzo - With: Valentino Esqueda MD - When: 2 - 3 days - Reason: Recheck today's complaints, Continuance of care, Re-evaluation by your physician Discharge Instructions: - Dysuria alonzo - Hematuria, Adult alonzo - Discharge Summary Sheet cp Forms: - Medication Reconciliation Form alonzo - Thank You Letter alonzo - Antibiotic Education alonzo - Prescription Opioid Use alonzo Prescriptions: - Flomax 0.4 mg Oral capsule - take 1 capsule by ORAL route once daily 1/2 hour following the same meal each cp day; 30 capsule; Refills: 0, Product Selection Permitted - Cipro 500 mg Oral Tablet - take 1 tablet by ORAL route every 12 hours for 7 days; 14 tablet; Refills: 0, [facility] Product Selection Permitted Signatures: Dispatcher [employer] Dhruv Tyler MD MD cha Bryson, James RN RN jb4 Lia Link RN RN sunday1 Argenis Harper tw5 María Elena Farrell PA PA sb3
--- NOTE | 2021-07-07 23:24 | ER ---
Nurse's Notes [facility] Name: Toño Currie Age: 75 yrs Sex: Male : 1945 Arrival Date: 07/07/2021 Time: 19:57 Bed 26 Private MD: Diagnosis: Hematuria, unspecified;Disorder of prostate, unspecified-prostamegaly, prostrate cancer;Dysuria Presentation: 07/07 20:12 Chief complaint: Patient states: Diagnosed with prostate cancer in 2017. I have been ld1 going to [facility] in [place] with Dr. العراقي. In 2017 I was told I had a small amount of prostate cancer, they have been monitoring it every 6 months since 2016. I have had no issues until this evening - I went to the bathroom and a big blood clot came out when I was urinating follow by a stream of blood. Pt reporting blood in urine and painful urination. Coronavirus screen: At this time, the client does not indicate any symptoms associated with coronavirus-19. Ebola Screen: No symptoms or risks identified at this time. Initial Sepsis Screen: Does the patient meet any 2 criteria? No. Patient's initial sepsis screen is negative. Does the patient have a suspected source of infection? No. Patient's initial sepsis screen is negative. Risk Assessment: Do you want to hurt yourself or someone else? Patient reports no desire to harm self or others. Onset of symptoms was July 07, 2021. 20:12 Method Of Arrival: Ambulatory ld1 20:12 Acuity: MISTI 3 ld1 Triage Assessment: 20:12 General: Appears in no apparent distress. comfortable, Behavior is calm, cooperative, ld1 appropriate for age. Pain: Denies pain. EENT: No signs and/or symptoms were reported regarding the EENT system. Neuro: Level of Consciousness is awake, alert, obeys commands, Oriented to person, place, time, situation. Cardiovascular: Capillary refill < 3 seconds Patient's skin is warm and dry. Respiratory: Airway is patent Respiratory effort is even, unlabored. : Urine is blood tinged, Reports pain with urination. Historical: - Allergies: 20:12 No Known Allergies; ld1 - Home Meds: 20:12 amlodipine 5 mg tab 1 tab once daily [Active]; lovastatin 20 mg Oral Tb24 1 tab once ld1 daily [Active]; - PMHx: 20:12 Hypertension; Hypercholesterolemia; ld1 - PSHx: 20:12 None; ld1 - Immunization history:: Adult Immunizations up to date, Client reports receiving the 2nd dose of the Covid vaccine. - Social history:: Smoking status: Patient denies any tobacco usage or history of. Patient/guardian denies using alcohol. Screenin/05 20:45 Tuberculosis screening: No symptoms or risk factors identified. jb4 07/07 20:45 Abuse screen: Denies threats or abuse. Nutritional screening: No deficits noted. Fall jb4 Risk None identified. Assessment: 20:45 General: Appears in no apparent distress. comfortable, Behavior is calm, cooperative, jb4 appropriate for age. Pain: Denies pain. Neuro: Level of Consciousness is awake, alert, obeys commands, Oriented to person, place, time, situation. Cardiovascular: Patient's skin is warm and dry. Respiratory: Airway is patent Respiratory effort is even, unlabored, Respiratory pattern is regular, symmetrical. GI: No signs and/or symptoms were reported involving the gastrointestinal system. : Urine is laura blood. EENT: No signs and/or symptoms were reported regarding the EENT system. Derm: Skin is intact, Skin is pink, warm \T\ dry. 22:00 Reassessment: Patient appears in no apparent distress at this time. Patient and/or jb4 family updated on plan of care and expected duration. Pain level reassessed. Patient is alert, oriented x 3, equal unlabored respirations, skin warm/dry/pink. Patient states symptoms have improved. : Urine is blood tinged. 23:05 Reassessment: Bladder scanner shows 305 as PRV. provider notified. jb4 23:50 Reassessment: Patient appears in no apparent distress at this time. Patient and/or jb4 family updated on plan of care and expected duration. Pain level reassessed. Patient is alert, oriented x 3, equal unlabored respirations, skin warm/dry/pink. Vital Signs: 20:12 BP 131 / 70; Pulse 80; Resp 18; Temp 98.9(TE); Pulse Ox 99% on R/A; Weight 83.01 kg; ld1 Height 5 ft. 9 in. (175.26 cm); Pain 0/10; 22:30 BP 143 / 69; Pulse 81; Resp 18; Pulse Ox 98% on R/A; jb4 20:12 Body Mass Index 27.02 (83.01 kg, 175.26 cm) ld1 ED Course: 19:57 Patient arrived in ED. ja2 20:12 Arm band placed on right wrist. ld1 20:16 Triage completed. ld1 20:27 Dhruv Varghese MD is Attending Physician. alonzo 20:45 Patient has correct armband on for positive identification. Placed in gown. Bed in low jb4 position. Call light in reach. Side rails up X 1. 21:06 Toño Rader, ANGELA is Primary Nurse. jb4 21:43 Urine Culture Sent. wm 21:43 Urine Microscopic Only Sent. wm 22:53 CT Abd/Pelvis - IV Contrast Only In Process Unspecified. EDMS 23:20 Door closed. Noise minimized. Lights dimmed. Moved to private room. Warm blanket given. tw5 23:23 Valentino Esqueda MD is Referral Physician. alonzo 23:50 No provider procedures requiring assistance completed. IV discontinued, intact, jb4 bleeding controlled, No redness/swelling at site. Pressure dressing applied. Administered Medications: 22:04 Drug: NS 0.9% 500 ml Route: IV; Rate: bolus; Site: right antecubital; jb4 22:34 Follow up: Response: No adverse reaction; IV Status: Completed infusion; IV Intake: jb4 500ml 22:04 Drug: Rocephin (cefTRIAXone) 1 grams Route: IV; Rate: per protocol; Site: right jb4 antecubital; 22:15 Follow up: Response: No adverse reaction; IV Status: Completed infusion jb4 22:35 Drug: NS 0.9% 1000 ml Route: IV; Rate: 125 ml/hr; Site: right forearm; jb4 23:54 Follow up: Response: No adverse reaction; IV Status: Order to discontinue infusion jb4 23:20 Drug: Flomax (tamsulosin) 0.4 mg Route: PO; tw5 23:54 Follow up: Response: No adverse reaction jb4 23:20 Drug: Cipro (ciprofloxacin) 500 mg Route: PO; tw5 23:54 Follow up: Response: No adverse reaction jb4 Intake: 22:34 IV: 500ml; Total: 500ml. jb4 Outcome: 23:24 Discharge ordered by . alonzo 23:50 Discharged to home ambulatory, with family. [facility] 23:50 Condition: stable 23:50 Discharge instructions given to patient, Instructed on discharge instructions, follow up and referral plans. medication usage, Demonstrated understanding of instructions, follow-up care, medications, Prescriptions given X 2. 23:54 Patient left the ED. [facility] Signatures: Dispatcher [employer] EDDhruv Farfan MD MD cha Bryson, James RN RN jb4 Lia Link RN RN sunday1 Flory Kraft Jessica ja2 Wood, Tiffany 5 Corrections: (The following items were deleted from the chart) 23:56 22:45 Abuse screen: Denies threats or abuse. 4 [facility] 23:56 22:45 Nutritional screening: No deficits noted. [place] [id number] 23:56 22:45 Tuberculosis screening: No symptoms or risk factors identified. [place] [id number] 23:56 22:45 Fall Risk None identified. [place] [id number]
[2021-07-08 09:18] VITALS: TEMP 98.9
[2021-07-08 09:19] VITALS: BP 143/69; O2SAT 98
== END 2021-07-07 23:54 | disposition home or self-care (01) ==
LOC: ER 19:54
DX: R31.9 Hematuria, unspecified (principal); N42.89 Other specified disorders of prostate; R30.0 Dysuria; I10 Essential (primary) hypertension; E78.00 Pure hypercholesterolemia, unspecified
CPT/HCPCS: 87088; 85025; 87086; 36415; 83690; 80053; 74177; Q9967; J7030; 81003; 81015; 82565

== ENCOUNTER 2023-02-08 09:24 | Day surgery (SDC) | payer OTHER, MEDICARE ==
[2023-02-08 09:22] LABS: Absolute Lymphocytes (CBC) 2.7 K/uL (0.7-4.9); Hematocrit 46.8 % (39.6-49.0); Lymphocytes % 40.4 % (15.3-44.8); MCV 91.1 fL (80-100); MPV 7.3 fL (7.6-11.3); Platelets 199 thou/uL (152-406); RBC Red Blood Cell Count 5.14 M/uL (4.33-5.43)
--- NOTE | 2023-02-08 09:22 | RAD REPORT ---
EXAM DESCRIPTION: RAD - Chest Pa And Lat (2 Views) - 02/08/2023 9:18 am CLINICAL HISTORY: pre op for surgery. Hypertension COMPARISON: Chest Pa And Lat (2 Views) dated 09/12/2017; CHEST SINGLE VIEW dated 05/21/2015 TECHNIQUE: PA and lateral views of the chest were obtained. FINDINGS: The lungs are clear. Heart size is normal and central vasculature is within normal limits. No pleural effusion or pneumothorax seen. No acute bony finding noted. IMPRESSION: No acute cardiopulmonary process.
[2023-02-08 09:43] LABS: Potassium 4.2 mEq/L (3.5-5.1)
[2023-02-08] MEDS ORDERED: CEFAZOLIN SODIUM 1 GM/VIAL ONE (10:09)
[2023-02-08] MEDS ORDERED: Ringers Lactate 1,000 ML IV ONE (10:09)
[2023-02-08] MEDS ORDERED: propofoL 200 MG/20 ML VIAL IV ONE ×2 (12:09→12:25)
[2023-02-08] MEDS ORDERED: LIDOCAINE 2% MPF 5 ML VIAL ONE (12:09)
[2023-02-08] MEDS ORDERED: FENTANYL CITR 100 MCG/2 ML ONE ×2 (12:09→12:25)
[2023-02-08] MEDS ORDERED: LIDOCAINE 1% 20 ML MDV ONE (12:21)
[2023-02-08] MEDS ORDERED: BUPIVACAINE 0.5% PF 10 ML VIAL ONE (12:21)
[2023-02-08] MEDS ORDERED: ROCURONIUM 50 MG/5 ML VIAL IV ONE (12:26)
[2023-02-08] MEDS ORDERED: dexAMETHasone 10 MG/ML VIAL ONE (12:26)
[2023-02-08] MEDS ORDERED: ONDANSETRON 4 MG/2 ML VIAL ONE (12:26)
[2023-02-08] MEDS ORDERED: KETOROLAC 30 MG/ML INJ ONE (12:26)
[2023-02-08] MEDS ORDERED: LIDOCAINE 1% MPF 30 ML VIAL ONE (12:27)
--- NOTE | 2023-02-08 12:51 | P.BOP ---
Preoperative diagnosis: infected tender back subQ mass Postoperative diagnosis: same Primary procedure: Excisional biopsy of tender back subQ mass 3 x 3.5 x 2 cm Estimated blood loss: <10cc Specimen: mass Findings: mass Anesthesia: General Complications: None Transferred to: Recovery Room Condition: Good
[2023-02-08 13:58] VITALS: BP 131/59; TEMP 97.2; O2SAT 96
[2023-02-08] MEDS ORDERED: CODEINE 30MG/APAP 300MG TAB ONE (14:18)
--- NOTE | 2023-02-08 15:07 | DS ---
Date of Discharge: 02/08/2023 Diagnosis: Infected tender back subcutaneous mass. Procedure: Excisional biopsy of tender back subcutaneous mass 3 x 3.5 x 2 cm. Disposition: Home. Activity: As tolerated. No heavy lifting. Plan: Follow up in my office in 1 week. Call for appointment at [phone]. Keep area dry for 48 dominic rs, then may shower. JOVANNI Voice ID: [id number] Report ID: [id number]
--- NOTE | 2023-02-08 15:07 | OP ---
Date of Procedure: 02/08/2023 Surgeon: Cullen Osorio MD Preoperative Diagnosis: Tender back subcutaneous mass. Postoperative Diagnosis: Tender back subcutaneous mass. Procedure: Excisional biopsy of tender back subcutaneous mass 3 x 3.5 x 2 cm. Estimated Blood Loss: Less than 10 cc. Specimen: Mass. Anesthesia: General plus local. Complications: None. Indication: This is a case of a 77-year-old patient who came to us with a cloth washer back tender mass infected initially for which he was given antibiotics for the last few days. The erythema improved but tender ness still there in the mass, so that he wants that excised. The benefits, alternatives, and risks o f excisional biopsy of back subcutaneous tender mass fully explained, which include, but not limited to, infection, bleeding, damage to adjacent structures, anesthesia complication, recurrence, PA, and even . He also understands this may not relieve any symptoms. He might need more than one surg ical intervention. He understood, signed a consent. Description Of Procedure: The area of concern was marked by me and the patient in the holding room. Patient was brought to the operating room, placed in supine position. Anesthesia was done without c omplication. The patient was placed in lateral decubitus position with proper protection. Back area was prepped and draped in the usual sterile fashion. A time-out was called. A wedge incision was m angela in the skin all the way down to subcutaneous tissue until we found the mass. The mass was carefu lly excised under direct visualization. The mass was completely excised. It goes all the way down t o fascia of the muscle but does not penetrate the muscle. Area was irrigated and we proceeded to naida se this in layers after irrigation. Hemostasis was obtained. Deep layers, we used 0 chromic, mid la yers also, and then the skin approximated with 3-0 nylon. Patient tolerated the procedure well. Spo nge counts and instrument counts were correct. HM/MODL Voice ID: [id number] Report ID: [id number]
== END 2023-02-08 14:35 | disposition home or self-care (01) ==
LOC: OR 09:24
PROVIDERS: ATTEND Surgery
PROC: 0JB70ZZ Excision of Back Subcutaneous Tissue and Fascia, Open Approach (ICD-10-PCS; principal; 2023-02-08 12:15)
DX: R22.2 Localized swelling, mass and lump, trunk (principal); L72.0 Epidermal cyst; I10 Essential (primary) hypertension; E78.00 Pure hypercholesterolemia, unspecified; C61 Malignant neoplasm of prostate
CPT/HCPCS: 93005; 85025; 80048; 36415; 88304; 71046; 11403; J2704; J2001; J3010; J1100; J2405; J7120; J0690

== ENCOUNTER 2023-02-08 21:03 | Emergency (ER) | payer OTHER, MEDICARE ==
--- OUTSIDE RECORDS SUMMARY | 2023-02-08 21:09 | XMS REPORT | Continuity of Care Document ---
:1945 Author Organization [facility] t Address [address] [place] [address] [place] [id number] Care Team Providers Name Role Phone [phone] Primary Care Physician Unavailable GET VILLATORO Attending Clinician Unavailable ROBERTO العراقي Attending Clinician Unavailable Roberto العراقي MD Attending Clinician Jason Torres MD Attending Clinician To Ki PERSON Attending Clinician SVETLANA BAPTISTE Attending Clinician Unavailable ROBERTO العراقي Admitting Clinician Unavailable Payers Payer Name Policy Type Policy Number Effective Date Expiration Date S laura MEDICARE PART A AND [id number] 2009 B 00:00:00 [employer]-SECONDARY ONLY [id number] 2009 00:00:00 MEDICARE A B [id number] 2021 00:00:00 [facility]/AMELIA [id number] 2021 HEALTHCARE 00:00:00 Problems Condition Condition Condition Status Onset Resolution Last Treating Co mments Source Name Details Category Date Date Treatment Clinician Date Prostate Prostate Disease Recurre [facility] cancer cancer [facility] 12-01 [facility] 00:00: Medical Center Allergies, Adverse Reactions, Alerts Allergy Allergy Status Severity Reaction(s) Onset Inactive Treating Comm ents Source Name Type Date Date Clinician NO KNOWN Allergy Active [facility] Social History Social Habit Start Date Stop Date Quantity Comments Source Alcohol intake 2021-12-02 2021-12-02 Ex-drinker [facility] 00:[facility] 00:00:00 (finding) Medical [facility] Tobacco use and 2021-11-04 2021-11-04 Smokeless tobacco [facility] exposure 00[facility]00 00:00:00 non-user [facility] Sex Assigned At [birth year] YURIY Remys 00:00:00 [facility]:00 [facility] Smoking Status Start Date Stop Date Source Never smoked tobacco [facility] Medications Ordered Filled Start Stop Current Ordering Indication Dosage Frequency Signature Comments Components Source Medication Medication Date Date Medication? Clinician (SIG) Name Name lovastatin Yes 20mg QD Take [address] (MEVACOR) 9-03 [facility] 20 MG 16:39: nightly. Medical tablet 00 [facility] amLODIPine Yes 5mg QD Take [address] (NORVASC) 5 9-03 by [facility] MG tablet 16:39: daily. Medica l 00 [facility] fexofenadin Yes 180mg QD Take [address] (GWENDOLYN) 9-03 [facility] 180 MG 16:39: mouth Medical tablet 00 daily. [facility] tamsulosin Yes .4mg QD Take 0.[address] [facility] [address] (FLOMAX) 9-03 mg by [facility] 0.4 mg Cap 16:39: mouth Medica l 24 hr 00 daily. [facility] capsule lovastatin Yes 20mg QD Take [address] (MEVACOR) 9-03 [facility] 20 MG 16:39: nightly. Medical tablet 00 [facility] amLODIPine 0 Yes 5mg QD Take [address] (NORVASC) 5 9-03 by mouth [facility] MG tablet 16:39: daily. Medica l 00 [facility] fexofenadin Yes 180mg QD Take [address] (GWENDOLYN) 9-03 [facility] 180 MG 16:39: mouth Medical tablet 00 daily. [facility] tamsulosin Yes .4mg QD Take 0.[address] [facility] (FLOMAX) 9-03 mg [facility] 0.4 mg Cap 16:39: mouth Medica l 24 hr 00 daily. [facility] capsule lovastatin 2022-0 Yes 20mg QD Take [address] (MEVACOR) 9-03 [facility] 20 MG 16:39: nightly. Medical tablet 00 [facility] amLODIPine 2021-0 Yes 5mg QD Take [address] (NORVASC) 5 9-03 by [facility] MG tablet 16:39: daily. Medica l 00 [facility] fexofenadin 2021-0 Yes 180mg QD Take [address] (GWENDOLYN) 9-03 [facility] 180 MG 16:39: mouth Medical tablet 00 daily. [facility] tamsulosin 2021-0 Yes .4mg QD Take 0.[address] [facility] (FLOMAX) 9-03 mg [facility] 0.4 mg Cap 16:39: mouth Medica l 24 hr 00 daily. [facility] capsule lovastatin 0 Yes 20mg QD Take [address] (MEVACOR) 9-03 [facility] 20 MG 16:39: nightly. Medical tablet 00 [facility] amLODIPine 0 Yes 5mg QD Take [address] (NORVASC) 5 9-03 by mouth [facility] MG tablet 16:39: daily. Medica l 00 [facility] fexofenadin 0 Yes 180mg QD Take [address] (GWENDOLYN) 9-03 [facility] 180 MG 16:39: mouth Medical tablet 00 daily. [facility] tamsulosin 0 Yes .4mg QD Take 0.[address] [facility] [address] (FLOMAX) 9-03 mg [facility] 0.4 mg Cap 16:39: mouth Medica l 24 hr 00 daily. [facility] capsule lovastatin 2021-0 Yes 20mg QD Take [address] (MEVACOR) 9-03 [facility] 20 MG 16:39: nightly. Medical tablet 00 [facility] amLODIPine 2021-0 Yes 5mg QD Take [address] (NORVASC) 5 9-03 by mouth [facility] MG tablet 16:39: daily. Medica l 00 [facility] fexofenadin 2021-0 Yes 180mg QD Take [address] (GWENDOLYN) 9-03 [facility] 180 MG 16:39: mouth Medical tablet 00 daily. [facility] tamsulosin 2021-0 Yes .4mg QD Take 0.[address] (FLOMAX) 9-03 mg by [facility] 0.4 mg Cap 16:39: mouth Medica l 24 hr 00 daily. [facility] capsule lovastatin 2-0 Yes 20mg QD Take [address] (MEVACOR) 9-03 by [facility] 20 MG 16:39: nightly. Medical tablet 00 [facility] amLODIPine 2021-0 Yes 5mg QD Take [address] (NORVASC) 5 9-03 by mouth [facility] MG tablet 16:39: daily. Medica l 00 [facility] fexofenadin 2-0 Yes 180mg QD Take [address] [facility] (GWENDOLYN) 9-03 [facility] by [facility] 180 MG 16:39: mouth Medical tablet 00 daily. [facility] tamsulosin 2021-0 Yes .4mg QD Take 0.[address] (FLOMAX) 9-03 mg by [facility] 0.4 mg Cap 16:39: mouth Medica l 24 hr 00 daily. [facility] capsule lovastatin 2021-0 Yes 20mg QD Take [address] (MEVACOR) 9-03 by mouth [facility] 20 MG 16:39: nightly. Medical tablet 00 [facility] amLODIPine 2-0 Yes 5mg QD Take [address] (NORVASC) 5 9-03 by mouth [facility] MG tablet 16:39: daily. Medica l 00 [facility] fexofenadin 2021-0 Yes 180mg QD Take [address] [facility] (GWENDOLYN) 9-03 [facility] by [facility] 180 MG 16:39: mouth Medical tablet 00 daily. [facility] tamsulosin 2-0 Yes .4mg QD Take 0.[address] (FLOMAX) 9-03 mg by [facility] 0.4 mg Cap 16:39: mouth Medica l 24 hr 00 daily. [facility] capsule lovastatin 2-0 Yes 20mg QD Take [address] (MEVACOR) 9-03 by mouth [facility] 20 MG 16:39: nightly. Medical tablet 00 [facility] amLODIPine 2-0 Yes 5mg QD Take [address] (NORVASC) 5 9-03 by mouth [facility] MG tablet 16:39: daily. Medica l 00 [facility] fexofenadin 2-0 Yes 180mg QD Take [address] [facility] (GWENDOLYN) 9-03 [facility] by [facility] 180 MG 16:39: mouth Medical tablet 00 daily. [facility] tamsulosin Yes .4mg QD Take 0.[address] [facility] (FLOMAX) 9-03 mg by [facility] 0.4 mg Cap 16:39: mouth Medica l 24 hr 00 daily. Center capsule polyethylen 2021- No 17g Q.5D Take [address] glycol 9-05 12-30 by mouth 2 [facility] (GLYCOLAX) 00:00: 23:59 (two) Medic al 17 gram 00 :00 times Center packet daily for 28 days. polyethylen 2021- No 17g Q.5D Take [address] [facility] glycol 9-05 12-30 by mouth 2 [facility] (GLYCOLAX) 00:00: 23:59 (two) Medic al 17 gram 00 :00 times Center packet daily for 28 days. polyethylen 2021- No 17g Q.5D Take [address] [facility] glycol -05 12-30 by mouth 2 [facility] (GLYCOLAX) 00:00: 23:59 (two) Medic al 17 gram 00 :00 times Center packet daily for 28 days. polyethylen 2021- No 17g Q.5D Take [address] [facility] glycol -05 12-30 by mouth 2 [facility] (GLYCOLAX) 00:00: 23:59 (two) Medic al 17 gram 00 :00 times Center packet daily for 28 days. polyethylen 2021- No 17g Q.5D Take [address] [facility] glycol -05 12-30 by mouth 2 [facility] (GLYCOLAX) 00:00: 23:59 (two) Medic al 17 gram 00 :00 times Center packet daily for 28 days. polyethylen 2021- No 17g Q.5D Take [address] [facility] glycol -05 12-30 by mouth 2 [facility] (GLYCOLAX) 00:00: 23:59 (two) Medic al 17 gram 00 :00 times Center packet daily for 28 days. polyethylen 2021- No 17g Q.5D Take [address] [facility] glycol 9- 09-30 by mouth 2 [facility] (GLYCOLAX) 00:00: 23:59 (two) Medic al 17 gram 00 :00 times Center packet daily for 28 days. docusate 2022-0 2022- No 100mg Q.5D Take 1 [facility] sodium 12-03 [facility] (COLACE) 00:00: 23:59 (100 mg Medic al 100 MG 00 :00 total) by Center capsule mouth 2 (two) times daily for 10 days. traMADoL 2021-0 2- No 50mg Take [address] [facility] (ULTRAM) 50 12-03-12 tablet (50 [facility] mg tablet 00:00: 23:59 mg total) Me dical 00 :00 by mouth Center every 6 (six) hours as needed for Pain for up to 10 days. Max Daily Amount: 200 mg docusate 2021-0 2022- No 100mg Q.5D Take 1 [facility] sodium 12-03 [facility] (COLACE) 00:00: 23:59 (100 mg Medic al 100 MG 00 :00 total) by Center capsule mouth 2 (two) times daily for 10 days. traMADoL 2021-0 2021- No 50mg Take [address] [facility] (ULTRAM) 50 12-03- tablet (50 [facility] mg tablet 00:00: 23:59 mg total) Me dical 00 :00 by mouth Center every 6 (six) hours as needed for Pain for up to 10 days. Max Daily Amount: 200 mg docusate 2021-0 2- No 100mg Q.5D Take 1 [facility] sodium 12-03 [facility] (COLACE) 00:00: 23:59 (100 mg Medic al 100 MG 00 :00 total) by Center capsule mouth 2 (two) times daily for 10 days. traMADoL 2021-0 2- No 50mg Take [address] [facility] [address] (ULTRAM) 50 12-03 tablet (50 [facility] mg tablet 00:00: 23:59 mg total) Me dical 00 :00 by mouth Center every 6 (six) hours as needed for Pain for up to 10 days. Max Daily Amount: 200 mg docusate 2-0 2022- No 100mg Q.5D Take 1 [facility] 12-03 [facility] (COLACE) 00:00: 23:59 (100 mg Medic al 100 MG 00 :00 total) by Center capsule mouth 2 (two) times daily for 10 days. traMADoL 2022-0 2022- No 50mg Take [address] [facility] (ULTRAM) 50 12-03-12 tablet (50 [facility] mg tablet 00:00: 23:59 mg total) Me dical 00 :00 by mouth Center every 6 (six) hours as needed for Pain for up to 10 days. Max Daily Amount: 200 mg docusate 2021-0 2- No 100mg Q.5D Take 1 [facility] 12-[facility] (COLACE) 00:00: 23:59 (100 mg Medic al 100 MG 00 :00 total) by Center capsule mouth 2 (two) times daily for 10 days. traMADoL 2021-2021- No 50mg Take [address] [facility] (ULTRAM) 50 12-03- tablet (50 [facility] mg tablet 00:00: 23:59 mg total) Me dical 00 :00 by mouth Center every 6 (six) hours as needed for Pain for up to 10 days. Max Daily Amount: 200 mg docusate 2021-0 2021- No 100mg Q.5D Take 1 [facility] 12-[facility] (COLACE) 00:00: 23:59 (100 mg Medic al 100 MG 00 :00 total) by Center capsule mouth 2 (two) times daily for 10 days. traMADoL 2021-2021- No 50mg Take [address] [facility] (ULTRAM) 50 12-03- tablet (50 [facility] mg tablet 00:00: 23:59 mg total) Me dical 00 :00 by mouth Center every 6 (six) hours as needed for Pain for up to 10 days. Max Daily Amount: 200 mg docusate 2021-0 2- No 100mg Q.5D Take 1 [facility] 12-03 [facility] (COLACE) 00:00: 23:59 (100 mg Medic al 100 MG 00 :00 total) by Center capsule mouth 2 (two) times daily for 10 days. traMADoL 2021-2021- No 50mg Take [address] [facility] (ULTRAM) 50 12-03-12 tablet (50 [facility] mg tablet 00:00: 23:59 mg total) Me dical 00 :00 by mouth Center every 6 (six) hours as needed for Pain for up to 10 days. Max Daily Amount: 200 mg ciprofloxac 2021- No 500mg Q.5D Take [address] in HCl 12-03 tablet [facility] (CIPRO) 500 00:00: 23:59 (500 mg Me dical MG tablet 00 :00 total) by Cente r mouth 2 (two) times daily for 3 days. ciprofloxac 2021- No 500mg Q.5D Take [address] in HCl 12-03 tablet [facility] (CIPRO) 500 00:00: 23:59 (500 mg Me dical MG tablet 00 :00 total) by Cente r mouth 2 (two) times daily for 3 days. ciprofloxac 2021- No 500mg Q.5D Take [address] in HCl 12-03 tablet [facility] (CIPRO) 500 00:00: 23:59 (500 mg Me dical MG tablet 00 :00 total) by Cente r mouth 2 (two) times daily for 3 days. ciprofloxac 2021- No 500mg Q.5D Take [address] in HCl 12-03 tablet [facility] (CIPRO) 500 00:00: 23:59 (500 mg Me dical MG tablet 00 :00 total) by Cente r mouth 2 (two) times daily for 3 days. ciprofloxac 0 2021- No 500mg Q.5D Take [address] in HCl 12-03 tablet [facility] (CIPRO) 500 00:00: 23:59 (500 mg Me dical MG tablet 00 :00 total) by Cente r mouth 2 (two) times daily for 3 days. ciprofloxac 0 2021- No 500mg Q.5D Take [address] [facility] HCl 12-03 tablet [facility] (CIPRO) 500 00:00: 23:59 (500 mg Me dical MG tablet 00 :00 total) by Cente r mouth 2 (two) times daily for 3 days. traMADoL 2021- No 50mg Take [address] [facility] (ULTRAM) 50 12-03 tablet (50 [facility] mg tablet 00:00: 00:00 mg total) Me dical 00 :00 by mouth Center every 6 (six) hours as needed for Pain for up to 10 days. Max Daily Amount: 200 mg ciprofloxac 2021-0 2022- No 500mg Q.5D Take [address] [facility] HCl 12-03 [facility] (CIPRO) 500 00:00: 00:00 (500 mg Me dical MG tablet 00 :00 total) by Cente r mouth 2 (two) times daily for 3 days. polyethylen 2021-0 2022- No 17g Q.5D Take [address] [facility] glycol 12-03 by mouth 2 [facility] (GLYCOLAX) 00:00: 00:00 (two) Medic al 17 gram 00 :00 times Center packet daily for 28 days. docusate 2021-0 202- No 100mg Q.5D Take 1 [facility] 12-[facility] (COLACE) 00:00: 00:00 (100 mg Medic al 100 MG 00 :00 total) by Center capsule mouth 2 (two) times daily for 10 days. traMADoL 2021- No 50mg Take [address] [facility] (ULTRAM) 50 12-03 tablet (50 [facility] mg tablet 00:00: 00:00 mg total) Me dical 00 :00 by mouth Center every 6 (six) hours as needed for Pain for up to 10 days. Max Daily Amount: 200 mg ciprofloxac 0 2021- No 500mg Q.5D Take [address] in HCl 12-03 tablet [facility] (CIPRO) 500 00:00: 00:00 (500 mg Me dical MG tablet 00 :00 total) by Cente r mouth 2 (two) times daily for 3 days. polyethylen 2021-0 202- No 17g Q.5D Take [address] [facility] glycol 12-03 by mouth 2 [facility] (GLYCOLAX) 00:00: 00:00 (two) Medic al 17 gram 00 :00 times Center packet daily for 28 days. docusate 2021-0 2021- No 100mg Q.5D Take 1 [facility] 12-[facility] (COLACE) 00:00: 00:00 (100 mg Medic al 100 MG 00 :00 total) by Center capsule mouth 2 (two) times daily for 10 days. traMADoL 2021-0 2021- No 50mg Take [address] [facility] (ULTRAM) 50 12-03 tablet (50 [facility] mg tablet 00:00: 00:00 mg total) Me dical 00 :00 by mouth Center every 6 (six) hours as needed for Pain for up to 10 days. Max Daily Amount: 200 mg ciprofloxac 2021-0 2021- No 500mg Q.5D Take [address] [facility] HCl 12-03 tablet [facility] (CIPRO) 500 00:00: 00:00 (500 mg Me dical MG tablet 00 :00 total) by Cente r mouth 2 (two) times daily for 3 days. polyethylen 2021-0 202- No 17g Q.5D Take [address] [facility] e glycol 12-03 by mouth 2 [facility] (GLYCOLAX) 00:00: 00:00 (two) Medic al 17 gram 00 :00 times Center packet daily for 28 days. docusate 2021-0 2021- No 100mg Q.5D Take 1 [facility] 12-[facility] (COLACE) 00:00: 00:00 (100 mg Medic al 100 MG 00 :00 total) by Center capsule mouth 2 (two) times daily for 10 days. traMADoL 2021-0 2021- No 50mg Take [address] [facility] (ULTRAM) 50 12-03 tablet (50 [facility] mg tablet 00:00: 00:00 mg total) Me dical 00 :00 by mouth Center every 6 (six) hours as needed for Pain for up to 10 days. Max Daily Amount: 200 mg ciprofloxac 0 2021- No 500mg Q.5D Take [address] [facility] HCl 12-03 tablet [facility] (CIPRO) 500 00:00: 00:00 (500 mg Me dical MG tablet 00 :00 total) by Cente r mouth 2 (two) times daily for 3 days. polyethylen 2-0 2022- No 17g Q.5D Take [address] glycol 12-03 by mouth 2 [facility] (GLYCOLAX) 00:00: 00:00 (two) Medic al 17 gram 00 :00 times Center packet daily for 28 days. docusate 2021-0 2021- No 100mg Q.5D Take 1 [facility] 12-[facility] (COLACE) 00:00: 00:00 (100 mg Medic al 100 MG 00 :00 total) by Center capsule mouth 2 (two) times daily for 10 days. traMADoL 2021-0 2021- No 50mg Take [address] [facility] (ULTRAM) 50 12-03 tablet (50 [facility] mg tablet 00:00: 00:00 mg total) Me dical 00 :00 by mouth Center every 6 (six) hours as needed for Pain for up to 10 days. Max Daily Amount: 200 mg ciprofloxac 2021-0 2021- No 500mg Q.5D Take [address] [facility] HCl 12-03 tablet [facility] (CIPRO) 500 00:00: 00:00 (500 mg Me dical MG tablet 00 :00 total) by Cente r mouth 2 (two) times daily for 3 days. polyethylen 2021-2021- No 17g Q.5D Take [address] glycol 12-03 by mouth 2 [facility] (GLYCOLAX) 00:00: 00:00 (two) Medic al 17 gram 00 :00 times Center packet daily for 28 days. docusate 2021-0 2021- No 100mg Q.5D Take 1 [facility] 12-[facility] (COLACE) 00:00: 00:00 (100 mg Medic al 100 MG 00 :00 total) by Center capsule mouth 2 (two) times daily for 10 days. traMADoL 2021-0 2021- No 50mg Take [address] [facility] (ULTRAM) 50 12-03 tablet (50 [facility] mg tablet 00:00: 00:00 mg total) Me dical 00 :00 by mouth Center every 6 (six) hours as needed for Pain for up to 10 days. Max Daily Amount: 200 mg ciprofloxac 2021- No 500mg Q.5D Take [address] [facility] HCl 12-03 tablet [facility] (CIPRO) 500 00:00: 00:00 (500 mg Me dical MG tablet 00 :00 total) by Cente r mouth 2 (two) times daily for 3 days. polyethylen No 17g Q.5D Take [address] [facility] glycol 12-03 by mouth 2 [facility] (GLYCOLAX) 00:00: 00:00 (two) Medic al 17 gram 00 :00 times Center packet daily for 28 days. docusate 2021- No 100mg Q.5D Take 1 [facility] 12-[facility] (COLACE) 00:00: 00:00 (100 mg Medic al 100 MG 00 :00 total) by Center capsule mouth 2 (two) times daily for 10 days. Vital Signs Vital Name Observation Time Observation Value Comments Source HEIGHT 2021-12-01 06:00:00 175.3 cm WEIGHT 2021-12-01 06:00:00 81.239 kg HEIGHT 2021-11-04 10:00:00 175.3 cm WEIGHT 2021-11-04 10:00:00 83.008 kg HEIGHT 2021-12-01 06:00:00 175.3 cm WEIGHT 2021-12-01 06:00:00 81.239 kg HEIGHT 2021-11-04 10:00:00 175.3 cm WEIGHT 2021-11-04 10:00:00 83.008 kg Systolic blood 2021-12-03 11:35:00 144 mm[Hg] [facility] Diastolic blood 2021-12-03 11:35:00 67 mm[Hg] [facility] Heart rate 2021-12-03 11:35:00 70 /min [facility] Body temperature 2021-12-03 11:35:00 36.17 [facility]ia [facility] Respiratory rate 2021-12-03 11:35:00 18 /min [facility] Oxygen saturation in 2021-12-03 11:35:00 98 /min [facility] Arterial blood by Medical Ce nter Pulse oximetry Body height 2021-12-01 06:00:00 175.3 cm [facility] Body weight 2021-12-01 06:00:00 81.239 kg [facility] BMI 2021-12-01 06:00:00 26.45 kg/m2 [facility] Procedures Procedure Date / Time Performed Performing Clinician Molly wagoner BASIC METABOLIC PANEL 2021-12-03 03:27:00 Reilly Baig [facility] CBC W/PLT COUNT & AUTO 2021-12-03 03:27:00 Krzysztof Mason umm [facility] CBC W/PLT COUNT & AUTO 2021-12-03 03:27:00 Krzysztof Mason umm [facility] BASIC METABOLIC PANEL 2021-12-02 03:28:00 Reilly Baig [facility] CBC W/PLT COUNT & AUTO 2021-12-02 03:28:00 Krzysztof Isabella umm [facility] CBC W/PLT COUNT & AUTO 2021-12-02 03:28:00 Krzysztof Isabella umm [facility] BASIC METABOLIC PANEL 2021-12-01 15:46:00 Reilly Baig [facility] HEMOGLOBIN AND 2021-12-01 15:46:00 Krzysztof Isabella umm [facility] RRL CRITICAL LABS 2021-12-01 13:10:33 [facility] (ABG,NA,K,H&H,GLUCOSE) Medical C enter CALCIUM, IONIZED 2021-12-01 13:10:33 [facility] POTASSIUM-STAT LAB 2021-12-01 13:10:33 [facility] HGB/HCT (H&H) - STAT LAB 2021-12-01 13:10:33 Brian Jason [facility] BLOOD GAS, ARTERIAL 2021-12-01 13:10:33 [facility] SODIUM NA-STAT LAB 2021-12-01 13:10:33 [facility] GLUCOSE-STAT LAB 2021-12-01 13:10:33 [facility] Jason [facility] TISSUE EXAM 2021-12-01 10:38:00 Roberto العراقي [facility] RRL CRITICAL LABS 2021-12-01 09:54:41 [facility] (ABG,NA,K,H&H,GLUCOSE) Medical C enter CALCIUM, IONIZED 2021-12-01 09:54:41 [facility] BLOOD GAS, ARTERIAL 2021-12-01 09:54:41 [facility] SODIUM NA-STAT LAB 2021-12-01 09:54:41 [facility] POTASSIUM-STAT LAB 2021-12-01 09:54:41 [facility] GLUCOSE-STAT LAB 2021-12-01 09:54:41 [facility] HGB/HCT (H&H) - STAT LAB 2021-12-01 09:54:41 [facility] ABORH, MANUAL 2021-12-01 09:52:00 Diandra Henriquez [facility] ROBOTIC 2021-12-01 07:48:00 Malcom [facility] LAPAROSCOPY,PROSTATECTOM [facility] Y W/ PELVIC LYMPH NODE DISSECTION PROCEDURE W/ DAVINCI XI 2021-12-01 07:48:00 Daniel [facility] HERNIORRHAPHY, UMBILICAL 2021-12-01 07:48:00 [facility] TYPE AND SCREEN, 2021-12-01 06:10:00 Asif Blakely [facility] Plan of Care Planned Activity Planned Date Details Comments Source Future Scheduled 2025-05-31 DTAP/TDAP/TD VACCINES [facility] Test 00:00:00 (2 - Td or Tdap) [code Medic al Center = DTAP/TDAP/TD VACCINES (2 - Td or Tdap)] Future Scheduled 2025-05-31 DTAP/TDAP/TD VACCINES [facility] Test 00:00:00 (2 - Td or Tdap) [code Medic al Center = DTAP/TDAP/TD VACCINES (2 - Td or Tdap)] Future Scheduled 2025-05-31 DTAP/TDAP/TD VACCINES [facility] Test 00:00:00 (2 - Td or Tdap) [code Medic al Center = DTAP/TDAP/TD VACCINES (2 - Td or Tdap)] Future Scheduled 2025-05-31 DTAP/TDAP/TD VACCINES [facility] Test 00:00:00 (2 - Td or Tdap) [code Medic al Center = DTAP/TDAP/TD VACCINES (2 - Td or Tdap)] Future Scheduled 2025-05-31 DTAP/TDAP/TD VACCINES [facility] Test 00:00:00 (2 - Td or Tdap) [code Medic al Center = DTAP/TDAP/TD VACCINES (2 - Td or Tdap)] Future Scheduled 2025-05-31 DTAP/TDAP/TD VACCINES [facility] Test 00:00:00 (2 - Td or Tdap) [code Medic al Center = DTAP/TDAP/TD VACCINES (2 - Td or Tdap)] Future Scheduled 2025-05-31 DTAP/TDAP/TD VACCINES [facility] Test 00:00:00 (2 - Td or Tdap) [code Medic al Center = DTAP/TDAP/TD VACCINES (2 - Td or Tdap)] Future Scheduled 2025-05-31 DTAP/TDAP/TD VACCINES [facility] Test 00:00:00 (2 - Td or Tdap) [code Medic al Center = DTAP/TDAP/TD VACCINES (2 - Td or Tdap)] Future Scheduled 2022-12-[address] [facility] Test 00:00:00 (Season Ended) [code = Medic al Center Influenza Vaccine (Season Ended)] Future Scheduled 2022-12-[address] [facility] Test 00:00:00 (Season Ended) [code = Medic al Center Influenza Vaccine (Season Ended)] Future Scheduled 2022-12-02 Influenza Vaccine (#1) [facility] Test 00:00:00 [code = Influenza Medical Ce nter Vaccine (#1)] Future Scheduled 2022-12-02 Influenza Vaccine (#1) [facility] Test 00:00:00 [code = Influenza Medical Ce nter Vaccine (#1)] Future Scheduled 2022-12-02 Influenza Vaccine (#1) [facility] Test 00:00:00 [code = Influenza Medical Ce nter Vaccine (#1)] Future Scheduled 2022-12-[address] [facility] Test 00:00:00 Counseling and Medical Cente r Screening (12+) [code = Tobacco Cessation Counseling and Screening (12+)] Future Scheduled 2022-12-[address] [facility] Test 00:00:00 Counseling and Medical Cente r Screening (12+) [code = Tobacco Cessation Counseling and Screening (12+)] Future Scheduled 2022-12-[address] [facility] Test 00:00:00 Counseling and Medical Cente r Screening (12+) [code = Tobacco Cessation Counseling and Screening (12+)] Future Scheduled 2022-12-[address] [facility] Test 00:00:00 Counseling and Medical Cente r Screening (12+) [code = Tobacco Cessation Counseling and Screening (12+)] Future Scheduled 2022-12-[address] [facility] Test 00:00:00 Counseling and Medical Cente r Screening (12+) [code = Tobacco Cessation Counseling and Screening (12+)] Future Scheduled 2022-12-[address] [facility] Test 00:00:00 Counseling and Medical Cente r Screening (12+) [code = Tobacco Cessation Counseling and Screening (12+)] Future Scheduled 2022-12-[address] [facility] Test 00:00:00 Counseling and Medical Cente r Screening (12+) [code = Tobacco Cessation Counseling and Screening (12+)] Future Scheduled 2022-12-[address] [facility] Test 00:00:00 Counseling and Medical Cente r Screening (12+) [code = Tobacco Cessation Counseling and Screening (12+)] Future Scheduled 2022-11-[address] [facility] [facility] Test 00:00:00 WELLNESS (YEAR 2 or Medical Center FIRST YEAR if no IPPE) [code = MEDICARE ANNUAL WELLNESS (YEAR 2 or FIRST YEAR if no IPPE)] Future Scheduled 2022-11-[address] [facility] [facility] Test 00:00:00 WELLNESS (YEAR 2 or Medical Center FIRST YEAR if no IPPE) [code = MEDICARE ANNUAL WELLNESS (YEAR 2 or FIRST YEAR if no IPPE)] Future Scheduled 2022-11-[address] [facility] Test 00:00:00 WELLNESS (YEAR 2 or Medical Center FIRST YEAR if no IPPE) [code = MEDICARE ANNUAL WELLNESS (YEAR 2 or FIRST YEAR if no IPPE)] Future Scheduled 2022-04-[address] [facility] 00:00:00 (12+) [code = Medical Center DEPRESSION SCREENING (12+)] Future Scheduled 2022-04-03 FALLS RISK SCREENING [facility] 00:00:00 [code = FALLS RISK Medical C enter SCREENING] Future Scheduled 2022-04-[address] [facility] 00:00:00 (12+) [code = Medical Center DEPRESSION SCREENING (12+)] Future Scheduled 2022-04-03 FALLS RISK SCREENING [facility] 00:00:00 [code = FALLS RISK Medical C enter SCREENING] Future Scheduled 2022-04-[address] [facility] 00:00:00 (12+) [code = Medical Center DEPRESSION SCREENING (12+)] Future Scheduled 2022-04-03 FALLS RISK SCREENING [facility] 00:00:00 [code = FALLS RISK Medical C enter SCREENING] Future Scheduled 2022-04-[address] [facility] 00:00:00 (12+) [code = Medical Center DEPRESSION SCREENING (12+)] Future Scheduled 2022-04-03 FALLS RISK SCREENING [facility] 00:00:00 [code = FALLS RISK Medical C enter SCREENING] Future Scheduled 2022-04-[address] [facility] 00:00:00 (12+) [code = Medical Center DEPRESSION SCREENING (12+)] Future Scheduled 2022-04-03 FALLS RISK SCREENING [facility] 00:00:00 [code = FALLS RISK Medical C enter SCREENING] Future Scheduled 2022-04-[address] [facility] 00:00:00 (12+) [code = Medical Center DEPRESSION SCREENING (12+)] Future Scheduled 2022-04-03 FALLS RISK SCREENING [facility] 00:00:00 [code = FALLS RISK Medical C enter SCREENING] Future Scheduled 2022-04-[address] [facility] 00:00:00 (12+) [code = Medical Center DEPRESSION SCREENING (12+)] Future Scheduled 2022-04-03 FALLS RISK SCREENING [facility] 00:00:00 [code = FALLS RISK Medical C enter SCREENING] Future Scheduled 2021-12-02 INFLUENZA VACCINE (#1) [facility]:00 [code = INFLUENZA Medical Ce nter VACCINE (#1)] Future Scheduled 2021-12-02 INFLUENZA VACCINE (#1) [facility] 00:00:00 [code = INFLUENZA Medical Ce nter VACCINE (#1)] Future Scheduled 2021-12-02 INFLUENZA VACCINE (#1) [facility] 00:00:00 [code = INFLUENZA Medical Ce nter VACCINE (#1)] Future Scheduled 2021-11-09 Medicare IPPE (WELCOME [facility] 00:00:00 TO MEDICARE) [code = Medical Center Medicare IPPE (WELCOME TO MEDICARE)] Future Scheduled 2021-11-09 Medicare IPPE (WELCOME [facility] 00:00:00 TO MEDICARE) [code = Medical Center Medicare IPPE (WELCOME TO MEDICARE)] Future Scheduled 2021-11-09 Medicare IPPE (WELCOME [facility] 00:00:00 TO MEDICARE) [code = Medical Center Medicare IPPE (WELCOME TO MEDICARE)] Future Scheduled 2021-11-09 Medicare IPPE (WELCOME [facility] 00:00:00 TO MEDICARE) [code = Medical Center Medicare IPPE (WELCOME TO MEDICARE)] Future Scheduled 2021-11-09 Medicare IPPE (WELCOME [facility] 00:00:00 TO MEDICARE) [code = Medical Center Medicare IPPE (WELCOME TO MEDICARE)] Future Scheduled 2021-05-31 COVID-19 VACCINE (4 - [facility] series) [code = COVID-19 VACCINE (4 - Booster for [employer] series)] Future Scheduled 2021-05-31 COVID-19 VACCINE (4 - [facility] series) [code = COVID-19 VACCINE (4 - Booster for [employer] series)] Future Scheduled 2021-05-31 COVID-19 VACCINE (4 - [facility]:00 [facility] series) [code = COVID-19 VACCINE (4 - Booster for [employer] series)] Future Scheduled 2021-04-[address] [facility] 00:00:00 (12+) [code = Medical Center DEPRESSION SCREENING (12+)] Future Scheduled 2021-04-03 FALLS RISK SCREENING [facility] 00:00:00 [code = FALLS RISK Medical C enter SCREENING] Future Scheduled 2021-03-26 COVID-19 VACCINE (4 - [facility]:00 [facility] series) [code = COVID-19 VACCINE (4 - Booster for [employer] series)] Future Scheduled 2021-03-26 COVID-19 VACCINE (4 - [facility]00 [facility] series) [code = COVID-19 VACCINE (4 - Booster for [employer] series)] Future Scheduled 2021-03-26 COVID-19 VACCINE (4 - [facility]:00 Booster for [facility] series) [code = COVID-19 VACCINE (4 - Booster for [employer] series)] Future Scheduled 2021-03-26 COVID-19 VACCINE (4 - [facility]:00 Booster for [employer] [facility] series) [code = COVID-19 VACCINE (4 - Booster for [employer] series)] Future Scheduled 2021-03-26 COVID-19 VACCINE (4 - [facility]:00 [facility] for [employer] [facility] series) [code = COVID-19 VACCINE (4 - Booster for [employer] series)] Future Scheduled 2020-01-25 PNEUMOCOCCAL 65+ YRS [facility] 00:00:00 (2 - PCV) [code = Medical Ce nter PNEUMOCOCCAL 65+ YRS (2 - PCV)] Future Scheduled 2020-01-25 PNEUMOCOCCAL 65+ Y[facility] 00:00:00 (2 - PCV) [code = Medical Ce nter PNEUMOCOCCAL 65+ YRS (2 - PCV)] Future Scheduled 2020-01-25 PNEUMOCOCCAL 65+ YRS [facility] 00:00:00 (2 - PCV) [code = Medical Ce nter PNEUMOCOCCAL 65+ YRS (2 - PCV)] Future Scheduled 1994 SHINGLES VACCINES ([address] [facility] 00:00:00 of 2) [code = SHINGLES Medic al Center VACCINES (1 of 2)] Future Scheduled 1994 SHINGLES VACCINES ([address] [facility] 00:00:00 of 2) [code = SHINGLES Medic al Center VACCINES (1 of 2)] Future Scheduled 1994 SHINGLES VACCINES ([address] [facility] 00:00:00 of 2) [code = SHINGLES Medic al Center VACCINES (1 of 2)] Future Scheduled 1994 SHINGLES VACCINES ([address] [facility] 00:00:00 of 2) [code = SHINGLES Medic al Center VACCINES (1 of 2)] Future Scheduled 1994 SHINGLES VACCINES ([address] [facility] 00:00:00 of 2) [code = SHINGLES Medic al Center VACCINES (1 of 2)] Future Scheduled 1994 SHINGLES VACCINES ([address] [facility] 00:00:00 of 2) [code = SHINGLES Medic al Center VACCINES (1 of 2)] Future Scheduled 1994 SHINGLES VACCINES ([address] [facility] 00:00:00 of 2) [code = SHINGLES Medic al Center VACCINES (1 of 2)] Future Scheduled 1994 SHINGLES VACCINES ([address] [facility] 00:00:00 of 2) [code = SHINGLES Medic al Center VACCINES (1 of 2)] Future Scheduled 1962 HEPATITIS C [facility]CRE[facility]ING [facility] 00:00:00 [code = HEPATITIS C Medical Center SCREENING] Future Scheduled 1962 HEPATITIS C [facility] 00:00:00 [code = HEPATITIS C Medical Center SCREENING] Future Scheduled 1962 HEPATITIS C [facility]:00:00 [code = HEPATITIS C Medical Center SCREENING] Future Scheduled 1962 HEPATITIS C [facility]:00:00 [code = HEPATITIS C Medical Center SCREENING] Future Scheduled 1962 HEPATITIS C [facility] 00:00:00 [code = HEPATITIS C Medical Center SCREENING] Future Scheduled 1962 HEPATITIS C [facility] 00:00:00 [code = HEPATITIS C Medical Center SCREENING] Future Scheduled 1962 HEPATITIS C [facility] 00:00:00 [code = HEPATITIS C Medical Center SCREENING] Future Scheduled 1962 HEPATITIS C [facility] 00:00:00 [code = HEPATITIS C Medical Center SCREENING] Encounters Start End Encounter Admission Attending Care Care Encounter Source Date/Time Date/Time Type Type Clinicians Facility Department ID 2022-09-22 2022-09-22 Outpatient [facility] [id number] 09:34:27 11:04:41 Uche o n 2021-12-01 2021-12-03 Inpatient ROBERTO العراقي [facility] Surgery [id number] [facility] 05:29:00 16:39:00 2021-12-01 2021-12-03 Hospital Roberto Ramos [facility] [id number] 05:29[facility]00 16:39:00 Encounter [facility] 2021-12-01 2021-12-01 Anesthesia Jason Torres [facility] [id number] 08:03:00 15:18:00 Event To [facility] 2021-12-01 2021-12-01 Surgery Roberto العراقي [facility] [id number] 08:15:00 14:50:00 [facility] 2021-12-01 2021-12-01 Travel [facility] [id number] [facility] 00:00:00 [facility] 2021-11-04 2021-11-04 Outpatient [facility] [id number] SLE 09:59:05 23:59:00 2021-11-04 2021-11-04 [facility] [id number] 08:45:00 23:59:00 Encounter [facility] 2021-11-04 2021-11-04 Travel [facility] [id number] [facility] 00[facility] 00:00:00 [facility] 2021-09-23 2021-09-23 Outpatient [facility] MDA [id number] 08:10:59 08:10:59 Uche o n 2020-09-24 2020-09-24 Outpatient [facility] MDA [id number] 09:48:01 10:19:30 Uche hidalgo 2020-01-17 2020-01-17 Outpatient EL READ, MDA MDA [id number] 11:28:38 23:59:00 SVETLANA hidalgo 2020-01-17 2020-01-17 Outpatient EL READ, CAITLYN MDA [id number] 13:04:29 13:32:12 SVETLANA hidalgo 2019-09-26 2019-09-26 Outpatient EL PACHA, GET [facility] [id number] 13:46:14 14:20:35 Uche hidalgo Results Test Description Test Time Test Comments Results Result Comments Source Tissue Exam 2021-12-26 16:45:39 Test Item Value Reference Range Interpretation Comme nts Case Report (test code = 104) Surgical Pathology Report Case: [id number] Authorizing Provider: Roberto العراقي MD Collected: 12/01/2021 10:38 AM Ordering Location: [facility] PERIOPERATIVE Received: 12/01/2021 03:08 PM SERVICES Pathologist: Svitlana Casey MD Specimens: A) - Lymph Node, Periprostatic lymph nodes B) - Prostate, Prostate and seminal vesicles C) - Lymph Node, Right pelvic lymph node D) - Lymph Node, Left pelvic lymph node DIAGNOSIS (test code = 3220) [id number]hScTbMt pcdWMx WOldskJbKEklsHltDHPoDodfotVeQFIuyHBsT5Lghnfq DMrzFH8lZX3atPctiTXucXGdXTQlCoTwz0evv589zLJy f0uhJTLAcmmxtUs9uNclR99gq7K8UbxoK78abMHhDAF0 KIVpBRHbcOQzQBWmGXJ3EJSafKMqM4wlDYLkGM4wlepz HMuaILqwYKCmxPZ5ZZCbaCZtI6DfJOLbMUzuUXWuxpe5 XzEpJm1fuVRviBgsKOuaMEGwFXLoXPglVFCiStHjIJ4m GGjYGCiyUe6UWJkmZFDBSEROZ9OYKKHTQypnVEiEXCHL W74miMMkQSCfCrGqIxGKFWjEKXFYAsGERMXPYF1VFSWS UDZWGALzuLXjPGDbRlEiYj6tJOlTRUnAPEScEFtSL1XD TGsZZN2HLUCQCDQaNTDvvjrnVINkPYAudsPXAiNIDk4O PEBVHMteGw7LN9HEXuGZY2BCB2WEWMNWZFTRCp5AX09C GEZuAqQAWNZDTCQAYx1BTWXCQGXVT05TWoodZGAdfFz2 UrGobGnnQdCiMA8RHHRUP0DVEhRHNl0NQIsbL5hMWZVJ LwGJT37GTBUcKiJ8SfVgB7KGGKKrC1FRCIIjQqjiDZ9T O8IRGBHCLzWYXpBUTIHxdefjsRVmbOqhWACaPAJwEMXv NOGwVHDdTVMGYnbNX6RECR2SZgyMAwEeEnAROJMPQfVg Yy0UXXDFSV6TPIQzfus9XJMhAFOYHXQYE29RUZ7OTPBh clxiXHBhclxiMCAgICAgIFNFTUlOQUwgVkVTSUNMRVMs HYDWOj7ZQXMkXGSNCRUFWIFhMCNUGEOCV5FEIHaYAPJK HDoMLUffELMSK1IPNAETAA5KPRipsPWgQSOuBgVnRF0v Ml4lLIGAGK7SH8vHBhCQEADAOk4NDLTmVVNkcwfqXODl ELSowlFGOmGLPF0ZRLQUX6NXFPTQSFxJPGYZPEtLGRXl GEROC7cSMC5UGyyoOWKkZkz5ZmPlCMKICwCQID2LW37w FKiJOXmrXg0SGXHaFPOxKplysEMsTVDsagpsiCDjOI2g SWuGJFzzGl6HDOjbOKAANNSHPUmDJBUdEWIDP3vFDI3N UqknRCMjZft3TzRhFUUUVlQIEP7LC64bUEwGLWtoCm1J PNExBX3yLWEqdQOpzLdcstWaLCcye2LbMVnbXOWcTH9l fFpnYBWhWE2lJPRxC3jokZ0pknx5NvSeIGUoUyI2QWNy ynP9Khr7THBrRWusi6miv5SoEMOnURa2sJmqFbHwVFTs f8ynywSeLdSpGUKeSPYmAZVuiMYeF384t0vjd6baigUs qGH5JZZxHPO3AUcmhpYeikS0NOkcyLLuEdU2DJbvofXf IPqpiuAwyjQnYho3TYFuW317HLA0vEmoy8ppAUY2VJYn CPThLoKbJm8wsEKkF172SCTcWOADRIUlqOs1JDImhmGv mlYpyWTAv787B497p6syJBPtywOmxDvHzsqvy9ovA701 QCIeaTHkowDqJpSoOZGiiKAfoID6QPXgMQ9efuxuNXlv XRfiFXCvdwA3TEPefNSqQ1UoEWEeGP9ufrdsNGB9IXwj GQAqMON7AnZgJHEey6Ndmfp7ZxJufs2aal20FMW2f9Xu vKtdMKI9VAE4HtKiOo5kaLLuLUHuZS7bNeRoeZTeDXAx ll77zGesNHbqYNI1LGNcfdVoe1Rpa0fnVmWdziNdE1nc Q6DjOGCeJOXuTUYaMeKgmfDrl3Wqw4ZqdEPsaNm5m6ur QAHsCLIlhPzsu3dgOEG0WOJvhOTbZ6aogA7jFQSzDO7b qfscc0csKDbyNFkcSPYhjUL0ejP7YLNlkOBmB1TulC2s DYRoEHerNIGpokq8XyUlTv7zgUPeaCqmYKbjFbibMWgy XHBnbmNvbnRccGduZGVjXHBsYWluXHBsYWluXGYwXGZz MjRccWxcbGFuZzEwMzNcaGljaFxmMVxkYmNoXGYxXGxv V3qfYfWlDtPxVwl7HNFzoJVrNGVcZxx7QUUnySZnYGWN qTsiaP5cPCEgdFghdA1dfGJ3ACKtdnIywVFHzB1jVRAY lJ3jByR1YPEeFnm6XDL6HtTwbLMbiN3= COMMENT (test code = 3359) c7jfhPZhOJRkyTT0OtMaTQTzj6zlc4YevFKztTXu XGpl uMCchnDdwf58yQT0iN52DL5cUGUcSvE7MSIummV0Qod8 RREiRKZomMAcX727s6jxo8wxrzNtrYY8oPbrQVGgucsg FnM0SPtmQMXidaflQDz2JOwfOULxuRQ7MOEkpYBdU7Qx NMUfUA8iryn0LOI1FRrcVWDbGhR8SKDljQBxNKKzaZkc VXaqu611DLL1AqExSHPmtxPohOartJ9eAtHvEUIKNKX6 vS0hlrGbBvJ3kZNnbTCbn7LqhCKpfYQ4VEDjBAHef6Vp yhYvux1kGVNqcqOya70nmzOiaKq9XKxtZ8O1WZMnlB3w rEqgGPIvOUxsOKYuDRLel23slaDaiRSsm1V7dUSnfLNf lU8cTVTsXWLlsjM5rEIvtdtvuEUbXN3uTVvlQrKgDT98 BYPph3CifDVoe1UhrGVzzMhpdCWxOIAegDQufuSpYgWb tKD1iLYkTELzDH42PRQaoUygZ5qoQGZdniNlW79wQCKl GmBFhBJfg41fYMPuw2XoBIBsJLRgGPR6YsVrIJChxa04 cN3irNZrgLJfRXJbs9KfaGkyNFH9aI2lSYxmQSamILQs o09vgGM0uKSlgtV5HgHyHPqvKZA3xR7rNKnzAAYwisCr djLqDVOnFPOeHZFrlr4soDL2RLqozh1sBLp2znBnbKZx a8TixOttKLX9mHMos9onvkEvhzIqIAOmxOelbKXtOaXo XHKttX9dpODckODlmaSkl4yrxdIykrHyKLJooIwjdFWr EYRciJLrsi8qcCocgXimswLgO0CrMFPfmF98ALNrq16t rJNwg3Mfzk0uAKFjTWMdBD4eciUgOWOsz2qjvIQsYBKg KKK0nzHmuZLjd9KmcTVaXWDdUXZ2oEIkg2NqV1wsTYrz oJCjN5vabuYmuhVfqwKkHEAlnfLwAw6bFBW5mM3yEhru YXJ9 SYNOPTIC REPORT (test code = 5765) PROSTATE GLAND: Radical ProstatectomyPROSTATE GLAND: RADICAL PROSTATECTOMY - All [id number] Edition - Protocol posted: 02/10/2021 SPECIMEN Procedure: Radical prostatectomy Prostate Size: Prostate Weight (Grams): 80 g Prostate Greatest Dimension (Centimeters): 5.5 cm Additional Prostate Dimension (Centimeters): 5.1 cm Additional Prostate Dimension (Centimeters): 4 cm TUMOR Histologic Type: Acinar adenocarcinoma Histologic Grade: Grade: Grade group 2 ([place] Score 3 + 4 = 7) Minor Tertiary Pattern 5 (less than 5%): Not applicable Percentage of Pattern 4: 6 - 10% Intraductal Carcinoma (IDC): Not identified Cribriform Glands: Not identified Treatment Effect: No known presurgical therapy TUMOR QUANTITATION: Estimated Percentage of Prostate Involved by Tumor: 1 - 5% Greatest Dimension of Dominant Nodule (Millimeters): 17 mm Location of Dominant Nodule: Right and left anterior Extraprostatic Extension (EPE): Not identified Urinary Bladder Neck Invasion: Not identified Seminal Vesicle Invasion: Not identified Lymphovascular Invasion: Not Identified Perineural Invasion: Present MARGINS Margin Status: All margins negative for invasive carcinoma REGIONAL LYMPH NODES Regional Lymph Node Status: : All regional lymph nodes negative for tumor Number of Lymph Nodes Examined: 4 DISTANT METASTASIS PATHOLOGIC STAGE CLASSIFICATION (pTNM, AJCC 8th Edition) Reporting of pT, pN, and (when applicable) pM categories is based on information available to the pathologist at the time the report is issued. As per the AJCC (Chapter 1, 8th Ed.) it is the managing physician s responsibility to establish the final pathologic stage based upon all pertinent information, including but potentially not limited to this pathology report. Primary Tumor (pT): pT2 pN Category: pN0 ADDITIONAL FINDINGS Additional Findings: High-grade prostatic intraepithelial neoplasia (PIN) Additional Findings: Atypical adenomatous hyperplasia (adenosis) Additional Findings: Nodular prostatic hyperplasia CPT Code(s) (test code = 3357) b1dzsSKbIMZpfKO0QbGbVULni7mgh3ZpuRCi cGFyXGpl lFBjuuOcwi34lMR0kT86VS1mWQVcKzG4VIUcdbD2Ree1 BMSxDYIvcTLtC763s4ehu6wiziNimAP6iHduLZVjznyx ZaN4BPalUGHozuyeIHf9MFoiIYIaeEK1XLGrgAMdJ0Wv AEMaXK0ikex5EZM9GBhqEXCgYcF4HGBqbPWfHAStoHpi SNbqd710RJO4RsNaPZHjxdWsqIpxxG4zCwYyCJH7XUEq JER4WIyiJRVuJKgvKYrpuOPzqNFmJOc8QdM8MIZpcl8= CLINICAL HISTORY (test code = 3356) o5walVWqQBYouDB5Sq RsKFRgz6tfk8CiyATokTIdNXtb sEFvkoAuil22hAN4wM00LN9bTRUuBlV7FSRxwjT8Gaq1 HQEgKESeeYHjW209x0rhg8siphKjiUE1rQofWQTkzcou TvP6QTviHHIddzicKMa7GOajSBEusAJ3EZEisBPpB7Iu PTMvVM1vtkt3FNI1TMbtRJPrIfP2PHBznZHgLWAdzLlk ADdcl447YSQ7QnPrKSSwnjZrmEdgvH1pNwYlVMSPua3g iIE6BEGtHM4cJNUlgASmvS== SPECIMEN SOURCE (test code = 3377) m6cwsDEkUDOdnQJ5ZwJyKXNdl 9xnc9OtiBKodUHgCAsd aDJatcFary17oVY8tZ00JP0cTMHyRzA3AIFtziS8Sxu4 YLClNWTuiHCvR088v5kbk6pqwsMkoLP5rDsoMYYiwfuu AfM6JYuwPVOaaxttCXc2FMrtTUGvoAY3URUenMWoC4Us UKNcRR7mvlk8JOY5KVyxIYCvEyK3BSAglAXpWIXjqJsw BYpki265BGZ5FqNjTPBzwjDwiHopeH3lOpLsISDOGuQT jD7faKGRh1QbHANGKFVkdWPai3KrsSpaHWIqmoPFOtOP ga7yuQW7SSUljkBvB3SkqZ3urNDFEFMeU7wzj8osSCBc Gg9aMSdhvKbbLz3vQPjfTrzcgQShXXYukmxnSGOuqzGK DwLIbN4bhLKRm2AjGLTHVIM7MAUoiGCaX3hbTER4 GROSS DESCRIPTION (test code = [id number]zcERu E2Mxddrt [id number]) EKhyYM8lHR9bjExajCMeiTOvWW8WDTCxUwFvRKMiwBZl cmLeTgTgZTHhtIQmnEC1BYGrQM5hktlzTLxgGSmnWQKu mzC0FRUarWWyQ6ZsJUSiLO5bkykvJAC8CIebcH4llxKV EufqVk2yvKNzxVqkPkNsDkLaSFZlTBExVYCmnLvoKSVt WUc4xP0ACnutB29fj8Z7Wzp2KJNsILQhL8GvJQ8tYVKj qYFsA80YNpxaHBR7XWFSYnmfPDWbVL8Zi6oaFPXmuHHy AIH6MMvoiREqUVOaUMXrATx6WJJtJGfqpXDbYG0nrNfd TfigsVhuf2GmsKIzVJqiERCyTLYwNPuuSMEbCK9ALpPu FSV2YEZlAZJdEZa7OBv0UT8UJzKvGZFvJAioUvq5TFVm AUv3NZffYF7ZOTWlNqBaWeYdHMW0RKL7EIGfIHPwGfZh IHGvDPCpVMpmPGeelGNxEV5jlWivmKCrgqYVLuXWaU7c oAGNo5KsCbomDMTlPDfpCIDeG67fg4STo9QjQY3GNVw9 hdVwsmaeeK2bYRSyqhDnLNodnLGmV8zyBvIaYLUNDJRv aXZlZCBmcmVzaCBsYWJlbGVkIHdpdGggdGhlIHBhdGll [file] ZjBcZnMyMiANClxwbGFpblxlcGljTmVzdERvYzBccGxh mY38SIKczNEzNKR5HE3lVKFtnpwxPHAvEHJaSZL5MUbh cS06sDWfTVRaBAIqaQEtfH9He7sjSQWjfMTwBCY4GYby oMVzKEYhTOOlMMpfFvVoK4NYLZKlTfZ6VDM8JuWaKKw0 BMkoT6QMDOYyDRR2DUI7YQPvRrG9LKl6YTLBCo6gJhB9 UoSaDEJ2JTF9XRo5QHaskYBxTYihOsNVrorwbTPvYUCs CLdsckA6WRYuTXJerCmraE4cUj7nURubgFocFl7tDH2f rQLbSU5XEAGeqRJXVPO1WH4lARKHAerykQBiVKUbhUjs XLwxeO3eXM0TYTx8uoRcPQKgTcGuClRpTWs0GJIwAgSt j8hwzMXoHVmmGXF3uOSeKFCvYGPhYWIkQU84ABkZUFGa bmFtZSwgbWVkaWNhbCByZWNvcmQgbnVtYmVyIGFuZCAi bjpjePStwLBkvaxuRMd7hTClJN0xQDPuFQptPSOaVk15 GMulSu70HAxdQU3qUARmPZkitxRkyJaxqkMpx7F6lM5m WW0tXBYamAHyz1GqrDorh3QnBsMIlWSap8YhD7fuCB9x jQWfs7DniYIlyMepu6OeuSyfnkFhABFwYZCzluLpkPUr HUXtNFO8IQBuKDA1ZPRcTvYjfUDrLVE2qECoxD7ckREj j4KrFgShQOnsWAViWQSluMCqVDceUFJcpLkqFTb9CUB4 Cs0szOWtCV2uoSnyXCPngBwiBGOAIKC8xO4nVWTyNQW6 SKsacdDiGwWnWxI9LRLwtNbfuVxtcj6eZHyeUdwvVMQ0 RISleYmkEDVNEi5FARosAhAiYWrjYUSkUM7iPRAkFPBi wBCmYGZqntXYVoEXAPsvdJuanB6pSGRcG75si7LBr4Gw ASHkJLqnv1iqaPfif0WmiHQcYCvrYGXsdBAcNMurrJ6h ObGxw1lurFv8OZdepeG9ZFCqdv3XAiqtLjcybYvox6Hg wVRqVNjbZCVgPNDzKFjdEUGlRU7QAlLpJOY3YYRxRIOj VGe1YDz1DG2PWiNvAPIoWNzqGGHaPVHxBFf9YIasWW3U KJNdAmInFiO1HPR2GGF4SWYhCDMfLaFiRNZbYMKzWAdw WIftaPErMH4fiYvrurZ0BBMtQSuzICHaWXa7wEAtAE4q ZGUuXHBhciANClxlcGljTmVzdERvYzEgDQpcbHRycGFy FLiezsIiruikTUFGPhzfvMSjkXwwddFrIXQbU1WsijTt PNDdKERwLJniYmZiNTZzy3r1uHD6yEIpgZH2aUHwyWdy QiXyBR2chGYpZG7tIFgkINffswGhy9YxKB23sAEbpnBm chQqJkmoNsSjpLDoeuisNKw6yOXbAK5eBNIxGDduLJLt ZM0dPVnqRy3aQFxoPO8cGGEuPDwhmmQhxYeiukMvm8L3 mN6gIX4rRGBguCMxm7RlaAdxq4ZdNhNApHUnk5JcG3af KF4exBFbb2TziEUwsHbev7JegIvkydDgWEZbVTKvotSf zVIkXNAtvQW1KAe7pSJsAQ3hGEBtJZDgzmmwhdhmRF11 TLItIoKjoX2nHMTkCWAqoCHcwE8zxjTigxRngvRptiLv rFAehMObuYD3RTEeZZtlccTrYJtgkhFcP8LxbGrrtrDh i8OvPokpdH4yUYLqGxBxQOqhmDQdnVLccQ4xrNBtm2Nx AAwwsaCgMEV8SEUrcA00LAS2YFz5mFXwLN6xCAZghLzf ODWXSo0RBNueJLEvrX4ogFLxv9NoWGIcuRThQ8XmLPjs wN7xPIX7YZW9XgCERF2xuI4kEBKqa4Otq0RjK0klQH2o iWOhIR3UF0bHXapxlWVessbhtAwzJvYhvRYqRyKauRio bA38KLKyhYDvWAQ7LO6kEWWsdoyyOTGnCURaYKQ1ZZlu uD87yDNtXGLbDJGqhXTqaM6AAVVyVES3ONoccB70bWFn DS0IUTNyVUH4XYLnwCApSXV8XL5qoE2TjR== MICROSCOPIC DESCRIPTION (test code q3zrwUFpJQGrbGI8SiCkHHBtm 9nfs3KyxVBdzACpHLcc = 3371) rWUradFjiq05fHQ6pU72DY0aVIVdVoS0NYXuvwK8Qkq4 UQKbWXYmuMZeC852h2iex6lagfDcjVJ2uVmbXHOrhovr CvA1NPzuRUMacrlwGDy3YFygAHSetUY7CALaiFBpF1Ng HFFuOO2jnws2KNM0KEmwOROyQaO5REXhoKQwAGWmoMbx CJamr392JHG3UtUgHQBuakTgaHqhmE8gLhGvZAAJRZZs EHElfbKgph7qLC8spDXsaP== Gross assessment was performed at [facility] er, Department (test code = 2777) of Pathology, [address] [place] [address], [place] [address], Technical component was performed [facility] er, Department at (test code = 2778) of Pathology, [address] [place] [id number], Professional component was [facility], Depart ment performed at (test code = 2779) of Pathology, [address] [place] [id number], [id number] 16:45:39 Test Item Value Reference Range Interpretation Comments Case Report (test Surgical Pathology Report code = 104) Case: [id number] Authorizing Provider: Roberto العراقي MD Collected: 12/01/2021 10:38 AM Ordering Location: [facility] Received: 12/01/2021 03:08 PM SERVICES Pathologist: Svitlana Casey MD Specimens: A) - Lymph Node, Periprostatic lymph nodes B) - Prostate, Prostate and seminal vesicles C) - Lymph Node, Right pelvic lymph node D) - Lymph Node, Left pelvic lymph node DIAGNOSIS (test e3ezxYPzZSNps6riYPWhtIImFiZ code = 3220) wMzNcZnRuYmpcdWMxIHtccnRmMV xlcGljOTYwMlxhbnNpXHNwbHRwZ 8JrrzikOVkpBO3mZT2bpJwmmYOa dKKvALAtOzKry9vtz440dBYou6a eYGHVjxdygDo5lMzuT64gd4O6Pa njQ52pgDXlEBK5QQJgOBZpcUYfT NQqWGN4RGJgeZBxV5bbMXIbAI8a vdfrTGdpABxxNKIxnEQ2NQObfVF rY3CpJZWeQRvhVNWogez0TsTrBt 9vdGVyeTcyMFxwYXJkXHBsYWluX DKuPbFsUB2sMUyTZHgtXi7PKOgs RELYUTVMA5YZKCGSLrwhOIhRBWR JV44hwEPxUWGmShVkFmKUOQgPOH JVMjOCMZQZSZ9MWFBZMMURZFUgu TRqJNPwGeZfUo7qELgRLJrSFXCv FWzLC8UDHBhOYY1FDSLGWFPlPUP ugvljYWYcQSQtumUASkBAOe3WDI UBOYkxNh0NH4NENxJNC1QID7DPU VVQHCXPSg1LM20MYBWnTrICYMNY OVXPBc2PHOYJFLNYP94OXzsnZXR taMc7HtLmaQuaOeJeBE4TJAGIA6 SJFxYRUc7IEZzpQ7iXRQWSPdIBW 96ZKPKdDcK2VfSeN7JDYVVpK5ZD ZTGtOtgbZD7RJ9SJGVUNPxZRKbA EXHBhclxsaTBcbGluMCAgICAgIC DtMXTrNORgGQVMEmcOF2IUXB8YT ycUOcDmOgLCXXZAIvIyHl8OHOAI WN3MDEZppwv8GCDpTDZNDMIHH59 SKB0IQYAsjtkrWXWegvjpPFTrHM AgIFNFTUlOQUwgVkVTSUNMRVMsI LHANq9YMMGgQOHDBQMBPJWkGEBY VUSFT7JGHLjHZHDVRAqIEGndUSE NC4KPADENKA6JPFmjfOCpQRYmJf CeYO2gNj5fGDTYQO3XJ8yFYnIFY DWYKj6UJZKmRYPlznemFXMaSSJz zpCVVsMVXY5KIJXKM8YBUUJLUXk NLMCXEGoQIOFbFBNXV5nQTY0BSr roPUWlNsd0ZfAtDTKQKhHGGG0TR 30nIJqVWSyaPo8VUTTpZIPvUigl lGRcNIWikkskwCHvRK2rDBfLNRg gOj4FLPwhLRMUTIMPESxRPDMdCT QRY3aHQM5TWjjtZDMqHka7StBkB JZQFeHELQ7EQ74zZGiNEMonVa5H RRXnDI2uZDAweNKvcNbpplUnZMt oc4IaSWeqOJHaKM4rmBjdMGQyWU 5xSRZhM2lldW1fjed0ZpUeASHaK wJ2IFFateR5Oko4IOZoNDmpm8xq g3XrXSZgGWs5lOaqRtJwNSBmg4c zcyBcZmNoYXJzZXQwIEFyaWFsO3 27s2pxm7ufscJwwLI7RGSmOTJ3V QdbnpZdmsG9RFydcPGgFlF6LUmz jjUeVTbqltLmenYzTcx4SPOrT60 6VBK5sBryd5jcOBA9UWOyOGXmMm IiKy5zjKQjK854QBBsLVHOBMAde Vx7KNUiklQbplZkuEBJp228X089 u9neYZEnaiHjdQoTbigbx4hkP31 9XHBhcGVydzEyMjQwXHBhcGVyaD P9LUNmGK3njvhjJRfqRCqlTQSaz kA4YPBxxSRhM4PgWCGtDD3gjpmg AOU8ULmvSXUrNRM7TbEhGVMaj2O hrer5EkZmdm5mfg97LRF4y5DliR pdAPF0CKU7ZaAwUh8owLOjAJEuZ A1cHwRvkOUgAEOene92aHncDUru RXG8LFOhllKoz7Eqm4jhVxArpkK qM1zwE0LbXQHdBLOtTCSgWmEthd Tkk7Egu3SebDAywSx6a8zjKTJbI BQawMdwz9udCSL6APEmiVHxS1yf oI3dBXPuID8bauhpt2gzYWzkDOx aWXSazUP6mlT2QJGloSNwE0RfaV 9kWRSjXCszSIIhefk8UtJzIk7hf GVyeTcyMFxzYmtwYWdlXHBnbmNv bnRccGduZGVjXHBsYWluXHBsYWl uXGYwXGZzMjRccWxcbGFuZzEwMz NcaGljaFxmMVxkYmNoXGYxXGxvY 5pdCoZmRnZqMam6ELYxmAMeLQIl Cfd0AMImpFGmHBYPgFxfmI9hYVT wmGsmmE5peWF3PCFfpnEiyAYFpD 3lQLLBcG0zDwD1XMCpMtp2FSL1Z jFccGFyfX0= COMMENT (test code f6fmeYItKFPfzAI3SdUqYKTpe6l = 3359) yb6VzzBKglOPcGMhupAVuqdRtya 93mVW2pL74EN2wVQCmRuB7NFNjw wO8Zuc8VBHuPSOupQShV819p3nj u6ttemGkdHM9mHhcKNNezfqvInE 1HAazXJKtcpgaKJe8PQxiQOWbaA K5DSQklTAoY6NzRVFrQI5qgbq0F TT0BVnaBGXiPoD0MBDliFLwSMVh eDbsJNuxv582TGN9QwKqUEBnckX zfBbfuG1nCvJgWWTVBCF0qR7mtd EbYbG2nMNubYVmu6QnzONolOB4A DGdKFYjn1GclaNmsb8bANEjlvRn h75rmtZjmSv3UAulY5O9BDStaR5 erZbcBITvZJikVJTfXUNpg67zua CcoJLmt9K6tKZheOVczY5jHNZwP SXbpjW5yYRnyxceoVNdVN3lMZou YeXbHZ69PBGyd7IhfYJck1UfaLF gdGhhdCBtZWFzdXJlcyAxNyBtbS Y8yNJmLPJePN99ZKPzfCdxZ9vhM DHetoFjV68bZXSkEbJUvXUew26s AIOwo7ObIWFjCONyHRY3XfJhSYZ mym58jG4poXWiaXQcDYOyj4FouE vgNAM2gN4uQZjaIYooVMSit92vl RO8zWWxxzV0HqNxAZcjVAG4tN5d IGlzIGNvbmZpbmVkIHRvIHRoZSB qbs8hhIT4QEpqyq5xLNo6kyOdpS Qaf0CujQvaPDW3fUEff1chdwCma nTtPPRqdMkixWDbGmYzGUCibF7o pGAhcMQhspFfb6sgqtKafnZiTIJ xlIjzpJCoGFNqpOQlhx1ayOouuL oflxHkA1QdVZSdbO03SQMpr21ea GUgk3Jqzw3tGXWdNFAkLD5fthTk HCNdx5ecfFFfSQBoAZF7wxFvpOF le2HsbMCzPJBmBHB3zBVmw1DvD2 rlEPrbfEMwQ8vwahNpxwJkhwNqV UHclcEyMq5oOKV9zM6uMyynRQZ6 SYNOPTIC REPORT PROSTATE GLAND: Radical (test code = 5765) ProstatectomyPROSTATE GLAND: RADICAL PROSTATECTOMY - All [id number] Edition - Protocol posted: 02/10/2021 SPECIMEN Procedure: Radical prostatectomy Prostate Size: Prostate Weight (Grams): 80 g Prostate Greatest Dimension (Centimeters): 5.5 cm Additional Prostate Dimension (Centimeters): 5.1 cm Additional Prostate Dimension (Centimeters): 4 cm TUMOR Histologic Type: Acinar adenocarcinoma Histologic Grade: Grade: Grade group 2 (Paige Score 3 + 4 = 7) Minor Tertiary Pattern 5 (less than 5%): Not applicable Percentage of Pattern 4: 6 - 10% Intraductal Carcinoma (IDC): Not identified Cribriform Glands: Not identified Treatment Effect: No known presurgical therapy TUMOR QUANTITATION: Estimated Percentage of Prostate Involved by Tumor: 1 - 5% Greatest Dimension of Dominant Nodule (Millimeters): 17 mm Location of Dominant Nodule: Right and left anterior Extraprostatic Extension (EPE): Not identified Urinary Bladder Neck Invasion: Not identified Seminal Vesicle Invasion: Not identified Lymphovascular Invasion: Not Identified Perineural Invasion: Present MARGINS Margin Status: All margins negative for invasive carcinoma REGIONAL LYMPH NODES Regional Lymph Node Status: : All regional lymph nodes negative for tumor Number of Lymph Nodes Examined: 4 DISTANT METASTASIS PATHOLOGIC STAGE CLASSIFICATION (pTNM, AJCC 8th Edition) Reporting of pT, pN, and (when applicable) pM categories is based on information available to the pathologist at the time the report is issued. As per the AJCC (Chapter 1, 8th Ed.) it is the managing physician s responsibility to establish the final pathologic stage based upon all pertinent information, including but potentially not limited to this pathology report. Primary Tumor (pT): pT2 pN Category: pN0 ADDITIONAL FINDINGS Additional Findings: High-grade prostatic intraepithelial neoplasia (PIN) Additional Findings: Atypical adenomatous hyperplasia (adenosis) Additional Findings: Nodular prostatic hyperplasia CPT Code(s) (test a5vthGMjPCWevNB1LgByRNKyw7k code = 3357) xv4EicSLlwWEnOAaytPBsfvIrdc 84sUG9qY76UG6eVTUvQdZ6VGTvw mD4Fof6TUXqGHKpmPAyV980k6xd j1uuwwSdoUT7pWalZDIkucbqExD 4UKloBSOvdaicQWe3KTffTBMwyL F8IXZjfEEwB0HhWXPrDB7bmxy1Y EQ6EXroWMOqIvU1TMHpuFNcLAAv oPioHTnfs776AMP0JmIzFKOqstR vnMfjzT7cBgWuOHK1AEBtZSL2BX rnHCLhUEyyUXimxELivUUbVXj0M bE6JRNarx0= CLINICAL HISTORY x5nghCBnJUXczYE5VuEcRLAuw9f (test code = 3356) vx9KqaLTdaQJoRJxcyWQukmXmon 49hBI3cR39NB1xZPFoBnY1FQFwc cN6Yoj8WMCoZFSnfHPuL820c6ca q1aafoMvoSN2zAxeWZPrfissFwO 1QIugKRVbnnahQHe2QCfrNJCexL Y0NTQbqKKrY7RfTIWoYT4ydan5C AQ4NOvwVPFvDkK1ROQoeQDcZVZo eQibAPgca564SPS9CkVxNVUcwtZ frHidxR5tEqNfRODAbq5xjIN2HK YaLF3yGNDnlMFfpL== SPECIMEN SOURCE c6tsgFNvDSNiwNW4RvEiMSHbv2b (test code = 3377) bq2RgmPVjsUPyEXhatNMiydHhaz 90iUI1gY12MO3oUGJfNtL2DZVqd hC3Qsy4FGRxFEEluPQeY159u6ku x1upliQdhDW3gEpxWKUgeljgMqU 1GOqcHJPviwavRIt9UZksOYKywP F9TTRxnWDkP1AgUUCtTX4svgf0O XM0WWmrHKGqUmW9JHDtmYYcBHWh oLmiFAggm717PTC0YrPqUWRjsdF qyVmhnO1qHdWqWAVFSkJIdE0asU LXv8TeRLECPPDmfXUgj3AoeUsnJ RSeejPIQmTJni7qqXX1WZVdgdAo A0BfrI7wrDAKCKYgU5kda5noIRR cFw3sXJckdXqnSw7tEPuiYpkksA GqMLKjrwepVSOanhWOFgDCkC2hm AVRh2NaIEYJVKO2ZMBjmKCjT3rv YXJ9 GROSS DESCRIPTION a3bliDTzIEDdsWWXJXLzW3gtpeJ (test code = dCLQlyPSqH0WthnvoTByuMT7vJJ [id number]) 0ygDaueGCmuPHvXD2HTGVrQnFzX HBhcGVydzEyMjQwXHBhcGVyaDE1 MPNwFW6rmmsgOTyjQSeaYENjcwF 3PEXugXLbH5IhMNSlFT3mbxlvRY D6GAhwrC4palMPFqkeKq5rqPIjl HtcZjFcZmNoYXJzZXQwXGZuaWwg JWHlYFq4sM4KIzbaL16yw9Y6Lcj 0WMObSFRtY2CsKU9jGWBucOVaM8 4GSumvAFS4WXYKYsgrAFPySI5Hn 4bwYUXmzVVoZIG2OBfadDOvDLQv YSHlNHu1ICPsFOncwVKkPU4rbKr gNewupRdkg7CubSHrPOjkAUSbLB SnKMpsHITgQE8NUkGmGBA6DZAtE WJcCPd0LWp8TJ6MQkXfCIJtOHme Ems4RIKiSSi7KRsoPN6VVMUqYyR yQhYqBXG8BLD4DQWiBNNeQsUeWC JrYWApPLalDLnmbXPpSB8buKnek AUudqYHUyLGvF1seZZHr2KdPacu DFJaJEwoJGOfA29qe2YAa7DkZD4 CRNl7ixGiqydtsD1oKMEvnnCzSW veyOUyC1sjOoHnJUQXVMCdgCLcN CBmcmVzaCBsYWJlbGVkIHdpdGgg vQpgZAWgsNrvozNxW9J1tsMqHH0 wOSQrVKJlJ2VfBLIpX83nJBDxyZ 6pNGOuCP3cYMUsGXOapYTih9Atx RyvJWr0lGQuHJ1rGLPrUtUjqiTw CRZkKGS5IGTbYHA6NBVjBVGlcED uT6olEZlrkVQjg8FzUfDyEHgls9 EdDXRrv9T6HSMqdiOuxAYtsUDaJ XQZjHRrk3CmS0luLD0meUVhe0Vc gQInlMlku8CoyTbkhqLyAZFfJJY 4wVBaLHNxmqMhMQLfz0GtNruwRD MppEC8FLd8pYIeDO8sCIHhqZObp 6OwnX7gNDPnWTR2BCGeMVE6COAh IdDdtW4eXAPmHUOmwJOwnU2aesO qpkMygvQvknIpeNFioYNzrEK1VG YmMNzwfrUtKMdpqsQzZ3ZkkQhlv yZvt7UtMqioiR7bSRLfBnEiLTHv k0BlYjeyIBovaYTtdNXbsP2rdFE vl7PyINzgbcVmKJDvEKS0LYGjdS WbuyXrrmRlIgHqxXIytM1ejxsfM QDjACiCFp0QIGYsWEvmRZWioQGI UZT0TM5hZRyivTUtxvclMOGzW8W uH0GjqgYzoJEaRZKcxxBfv6rvZQ B1CDQlfNUqoMFqWkZlAvnvDWU7A Yl3WHgqGZGqC0OnW1YqBFzzZNZ9 MTAwMiBcXGRiICBPVlIgIiAzNTg sWov8FoG1ZEr6LAHLOwWaTkEpTv s3GdQ1DrFsVQt1UAm5ICkVCoU5J Vi3XFKmNtLrKBBaNtzcZRs7UPXn HGxrVHVjiRXsBYrvHxwcSQheU28 jGtJcRmfwsTFemzJDSmBEdc7ksD B2RD6udDLpKM2CSFUybGKVFCA3N J6yGMWCPncggNGyWHOtgYlfMQqv rT5cMB1TJEq4paLuZRLzQVemozP vXKXqA4PegtMpHAWtIQEiYIyvNz TlCEKej6r8fZX4tWMuqMI8eOOcz BpbBlQuAS2utNBtSO3uEJitVXqw tiZij1ZnTA88dXIwswXkfwTcIrL fs1Q9QLNfChVbiiIcLZvrVRnysp DodDGbdELtoh7viYZ7FJA7j019Y H9iAOH9artcLtR1HuEuU16uZRXt aBG5hdUbOAZsDXR7PnIoQ29diQQ tbqV0LIVdIQt7BFSiohQmNT3yOJ JvYAAriQXrtP7nCCPyRLMvx4Ssb zvfer3xadVWlTLxcadryHWhWW4r NItoUcRrv0WedJ5btDP6RCVdV8e hmzUmUWCweGEkPYKbKXO3KEHkUL O8LURtRtJetIGvmgJlQo9aMKzlG U41KSfwAF30GTNrNAAce6TiY1Ze bbBbtT2uixDJmUIekelyfULnHW7 qPImwPfYbmnUkUBNfHkSiTL7mOG 7rZBF7keRvIC37WCMxZTJfDHX0X bZtV67fcS8bzGSaU3HhPNWkz4Xd Y9NxxlMsdOhyIZIszGEqBeJaC99 rpT3xUSqmoDT4HCHgULImijWSKh qqDNEbELpTuDBfi5O8AHCfo4AsD xDcWQFlWnI3cSGumHUcb8NcsBYc rVVlbBTsmZzlZVBfiiM3dhFaPHF tMMT2o8p2LDBmYJWoe2CfoSv0IP EbU5vjGI3cPYqpVBLml0A3LPApW RvwBNCmygwlkAo3TGVkE1Sxy58n WJNzux2jNHRfANktaK2iUuMkNAS xmrDdyEBhNB57lANwcTddCD7hVT weZSQpqSYwGT02dRQsjkBzLkAzc GgsORBveDVcHC3cC8QllAmdtwTq omL5YVYiUROdhAlslg22KO4uzI6 tM6OmhZ11zQa5LWabdZ0vr0hptv 34glbfAu1uHVxvrZBdi4Q1pPNoV AYsv3R9DMLkOlEmDHQmvsFzzM4p FZSeik23Z3ffaWOxYM2gXe6rIYk rZ2FkyKOcwSFqj5YrXSApAOPsCO VudGlmaWVkLlx+FRIqV5Qhy39ly hwff9YqnSmoSVOutUiuDFeckyXc hOElCCXaeeJ1LXKrJKGynRbfnn3 9ZC4jRBHtbnRqNFLqZURgKEWwiN Ntv4RjHuRnAD0mQVhwPEOzy4S9O TDtZJQpVSHtXE9jpoZoNRJjj1zq bGVzIGFyZSBlbnRpcmVseSBzdWJ rgJS8PNOmWWHdneMUKydjMYKrQR kTqtljK82mKDusaMUyOJ7TJga4R TogTGVmdFxwYXIgDQpCbGFjazog KtzsaIMmaSCgSD1KPXGruqJMPgY zJ0Kqm36vI40bYQwabWLqOU0RHp WgGdP7FVRvL8u0BUXuuTriZDdqk fHyqBInVBGbcGQvkPG6UMClw8Lw wBBnwViusEl1ZKHkc06nsTDfzKm yQRakcV2jIEkilPRnLDVpgqENOh N5KRPsOQB0GDskMeCsa4OpiE9qo ZL0WQNkQ9sdQOG6Tt4wbXYmXPDq NLN4ZZ57dHZixMywNvDjmRHyoq8 7oF2nvIG5zyIgfUG9IElrdXVsMN 3QFsHxSNmeTjiwtPVePE6xXFnlE fQoyxKuVKRlZtJjGF4zBY8psuvu azokBS0cRaCsBYndZDHyHIhNYAS 4XEFaS4j8SEHaZCuezOEbS8gzGC EzPTVwEV5xzXI7yTYzMFPnF0Tdh 25zXHBhciANCkIgMTMtQiAxNDog CYZacIYkxRU5JN6zxxevtfxngLL mjOUlLTlmlQyfjmYaDNK6lF0or8 hsMHTiKKpLTCE7HSLjIRC2ENKoL 0z8LMSsMHUoQBYbGdBxZWHpFMCv gL3wIFMfroNxcuZwY4TiEJMpf5Y wsJnomgHauTQkDL5VNj9bYz3BLK C8ElXZDTT2XNUgJYUxKHWpUvMjB EBdMZEljH0pCUUtlpSrngUxB3Dy MLYsr8VnyQhrraQaaACzVH0KQmL 6ZkMTmt4kyDD4ITbkb4nzM1JfBR wvPEStZSrGDEMtUmIBgf8urTN1G Xydl6neJ2GaQankIOJtSZbLUPJl ViVVvo6ueRG7HThfu1qvA8VqK1u hEPJaTLtIURLsMbBVcm3fwPA0GR rkt0gxJ9OrHIFulRaqrWSlrUAiD NhtjoWoErOfCvvtVZWhl4PouBCk IHNsaWNlIDQgbGVmdCBzaWRlXHB yoqYTSzLlDrS2VQEkj0F9CLPvHP AflZmoHXR0KFHgT9f8CDAgANEnr MGzCA3UCgWnKGeuJKYpb1QlsUFo IHNsaWNlIDUgbGVmdCBzaWRlXHB lakTJWqYtCwK1WDDxl0R1OJWpSN MaoFaxZGJ3KAYxP9d9NHSaXYEyb RSbSK6HLsWtTrdxRBYse7PnoUDu FHBijFIjFPVxTUcdSwDuh2erXOi sJSOkUDtVHIB7HqBSiq6brCH8ON zuj4wfH7ZsWhVqgUunyCTniORgD IVbrjNKXdIdEhy3XCXld4L3JLAo RLFpoDleEVR9LBeoBeHnv3umDAA dwNYlZW0SDjOyTGjyZCUdt4EvxW LbHCOwxDJePRaymDUhCO2KCbCkF VekDPNhq5DbhNXiWWDavTHpGNcm aYNmIF6WA1yecPHoAA4XFWMpjxT NClxjZjBcZnMyMiANClxwbGFpbl eezLnqNpQfjCYoAkKauIcayG56M HChjVTyHCL5XR9qJVBkjskhHOBb NZFqHAT6FRhbnY06vWUqAKOhVYG xgIBbcB4Po1mjKMNviNCuGFH1FC bfpAJuHAUhIOQfILqbUnNuM3PAE KShHnL3MNX0TpWjDZk6IIexR7AY HWDjWVO8SVE0BPXbLtZ6LJq0HWM JWs9mSwS4DzDdQKL9IFH3MFu5HQ xcdCAyIFxcZiBBcmlhbCBcXGZsI HxhfaY8ISPeHJIfaCskvN2yEf5o ORmxrBnxFg1rWF0pdSBhUJ2VRAP jrHZPNRE8TK9cVNQSSzmarZAsQL UsbWmbGReaoD8mZW1SWZb7giViT UFvRlLtXqWdUMr1XIOhNfQwq7vj bIOzOAemJBS3zFYoNBLtTDRlIHR mED57VPzUEXZytuHeDUmssKNmhY NhbCByZWNvcmQgbnVtYmVyIGFuZ BVsqjufkUIgbWIezkmyWXo9kSZg PL1mGMVwDZscDEJyPd62FDcxPz9 9RVdsYZ3dLBEcEWqbttKsuBohbc Vun6F2uF9hRF0eVSKxjDEqo8Oao Saix3HuRwKCxMTuq5BiE6aiHC5r lTVrk6JpuHTgiFncc3YvrXajmiG jZPXwHRKlrfBknDRfKVBuRWC7LC QvTRX6AGOsFpBmyXGqXXS2qUEul N3qsYJfx0BuHsGrBWgwDOSmVSYz yRCyIOafHTVxpAqsKSm7WGD5Fu3 zcPHoED0wtNupAWHlpMlhSUBUFX T1wB8vBUDzWYX2PGsxwmGwThXbF tC3BAUzbYvzoUsmnw2bCMopFbyl WSF4YPQwnWheMMGLJy9TLHudXjN dYFwjFMOxXH6jGCRfODMdsVWyXP FuckARTeZVYFyqcUvrlU7qNVQuD 83ye3ZLn9IbSPRvOIlwi5kzrZsj y5ThtPOmURglDUAopHDfIImfpH4 gIlYgr6oioLx2SNvidbO0VPYgea 1RIgqsOpwkoShgt1EsuXVyUVfcR FAoZVOtPKwvIGQoSO5KRbArLEF6 YWZzOBYfQTq5NUj2TB9YLtAoZWE sBCngUWWfQGRpRIc3LExkUF9YGH TkMoLjWqO8MMO5NVA9AAExBMVyG gCnLKPnJSNsSNssOMnesAFkXC7x yZqoxzT2ZOMcLVvpBUQfHSr3bCJ nNQ3kRRPvOXMnpfJMGmckkMxzEv VzdERvYzEgDQpcbHRycGFyXGxpb jBccmluMCANClxsdHJjaFxmczIw KGJwI7FoitHcTLWaYUOtJDwyNiU eEXXsh5t4jBB1lVLksTZ1lQXfaH prJqOhMC7zrXRrPN9hCVxkCYczs bIer9GkOQ60fDFplxPzuhNjEywn UiBjwJFxdpnzBOi4dAPeHV3tZLX lSHjiWBGzVU1bAGwaFj7rPMgjHJ 5nTTJlTIkpueZdoAmhqaLqy9E6i A6zNQ7pDKApoBIra9NtnQtmp5As HjSNhSSij3RqZ6qaMZ7ukHYxa1I zpPNktJfqs0KirDvebfIwUQNlLF XddfYrxTWiJNTxsDI9TNw0mMWfA Q6aIVSxRTXsyuoilbezTD11RJCs XqDdkX5tKYCeYIWscFJvxP8atxP qxgGpkpBasbVazRObqAKubZK1KL InJWnppoCbACyfnwCgA3XbzClsi xWdg8EkLemptX1wFGSkTcFvDVkm cDAsfNGlvM3cfPAwq3YbZXjumuB sTCC0RDMbtE32LLI0LQf9bRQrIG 3cJFHwuZegLMXZYo7SUExmLLVxl K7vzFJnl7FmKTWguPUjB6LuKFjb kU3dWWK3GIU4NkPUUO4hwH4jIJL oj1Dwz9KcH7cqGG5niFYnIC0HU7 cNClxwbGFpblxlcGljTmVzdERvY bNemHztsP99KJNwlGPzEHH1SX6h YKFejsgqQPAuIJUnIMG9QRfcxL9 4lAFfKLCqZDNppDMjqO3XHMBbAU L5PUzguB83bWFyQT0IZXVbFYB8O SAszQHnCIB2KM8ogB5GwI== MICROSCOPIC n2adzHWlQZHnfWC1LnYaAUOdh7i DESCRIPTION (test fy2RljOLmtXTjEEnazYQbuxKngq code = 3371) 94uZA7oI95JD5yWTStByD5ORFwb sC9Xat6FMNoMSTrqMStE095z9rm x4clhqLgdDM6cOzmZBHmupgfMhX 3HVkeKDJuadvtSVu1GOzrBBZamO O6HVDpfBMzL1EyTWZtZF2yppg5K ZB7EZriXWQjQaC8ZQYhnXTaITYh eNlhZRgfm507EXQ7IzJdGBSfkcQ luGvgtK5pEwTwBTCMJKHvZWYeom Kjzi3bVC8ypIHpbJ== Gross assessment [facility] was performed at [facility], Department of (test code = 2777) Pathology, [address] [place] [address], [place] [address], Technical component [facility] was performed at [facility], Department of (test code = 2778) Pathology, [address] [place] [id number], Professional [facility] component was [facility], Department of performed at (test Pathology, [address] [place] [address] code = 2779) [place] [address], [id number] 16:45:39 Test Item Value Reference Range Interpretation Comments Case Report (test Surgical Pathology Report code = 104) Case: [id number] Authorizing Provider: Roberto العراقي MD Collected: 12/01/2021 10:38 AM Ordering Location: [facility] Received: 12/01/2021 03:08 PM SERVICES Pathologist: Svitlana Casey MD Specimens: A) - Lymph Node, Periprostatic lymph nodes B) - Prostate, Prostate and seminal vesicles C) - Lymph Node, Right pelvic lymph node D) - Lymph Node, Left pelvic lymph node DIAGNOSIS (test q6sirWXdDKRey0rfVQWsvPXnQdY code = 3220) wMzNcZnRuYmpcdWMxIHtccnRmMV xlcGljOTYwMlxhbnNpXHNwbHRwZ 4OaikqrKZdlWF4qBH3mvAnhsZSe iVWrXSCwXaZmy8lxb521eHLpr3x oRJWNemhzaHa6zQjnC93gu4V4Aa pfR02csWRrHFC2IOUdJKPlrCTlV AReJME1SBQruUGfW1fiDHKvSO3a rdpaMJjjIQdhFJWzuGM1COKmdOQ lF0ClGTYeZTruCHBaqrc8DhTbVc 9vdGVyeTcyMFxwYXJkXHBsYWluX QHlJlIoRS1dIUnAPUgjVa2BRHos VLREIPAQF1GZBGQFEzslIGnXTKD VM40hfDYyHMGfCnGgAxNPVUiCTV UTVaAWYTCNXZ2LQVWSGACJSIKoi JRaHDVtZlLgUh4pEFxZOLyBRZFo RWcPV4KAXTmRJL0YRIVUDMPqZDN ifkdhCDIeJVQsyeZUJxBSSa0VOX LPPLfyNi5RY9SPMhACJ0TTF1YPA COIUBKKNn9FY62HZLMlXcKNDHTC JEDMQh3GUWGFAQUTE38IPkbeUQA tfLl7MrIbbYtzOtHhOE3EXSTMQ1 ATOeBYUt1BYNwyD7yONZGGShGGK 18GQZFgCmY4ZnOuG2PARBCnP5WP CLLvCigiUN3GR8RFJXJDAsGVDgE EXHBhclxsaTBcbGluMCAgICAgIC HwLFJhSCYqXEULAppAF2XQSC9SZ vyZZrJvKzULYSEQEmGpWb3IVMQS BP3BYJJudfx1TRIzNPQONYPLS87 SUD4ENGCbjfiaFLKftanbWIHxOT AgIFNFTUlOQUwgVkVTSUNMRVMsI PXTSp4HPCUrOQNBTUSZJBNrDCGJ UQXWZ8FBDTgQYWTTOQpXAAstQNA SG1EKVPNOSB3KFMjhaEFeFEKhCm XzCL9qEe1vTMSKXZ1BW4jUScZEF VJKRl0JAFNxJQYuypskSWEbBLJr uhHGQwTWTT3WGGGSS4YJDIJSCWx LDNEFVVuBUTAsOXLBO0sGCH6PQn jyOHMsJxj6SiBpLNQJHfFEQL2PW 22jJOgISJjkVr9URRAcGYWbCesa gFJhTRTnnkcmuOLrWV3xRIxVUYs bTy1YEXrbPHAPNARNVOcRSKPtSE FZD9nZJJ6UQbzcMPZbQpj2KmVlL THTAzJEKX5NY66eHDvYJCbwTt9J SILaUY1iDBIewBQknXerspDhGZc tz4QdTNcfZDIqSI9dcSmeDORdMD 3qWLQfN4wosY4pxia9StDrOQGzT kB1SMZkwxG4Gez0WIVoBRmtc7er p5BfIOHmXVd1jNyxGpDuKOXsl2x zcyBcZmNoYXJzZXQwIEFyaWFsO3 94n2mpa6mvnhFutTN8AYVdSWR7Z GcrcxRbqvK6JRuksLWeNmR4LZnu udXuGOddoaCdmkOeKxi3YZSpB59 6HHU1yUvnj7vgEIY1FZTrQVAhBy DaNd3mtAInG518VOFnNKHFIJOuu Zf1ZRGgpeEqvqEexTLWm222R721 z2mpSAKnnuYxfXeItcjxa3qaH10 9XHBhcGVydzEyMjQwXHBhcGVyaD E3AIWsWR0mopjaEPwnFYylQQDmp sF3SGYmrXLgP1YoUKTjTX3cvxhn PZP1CUxbXCTiHHC6MqBxILAfz1M bubc5XqLhmu1ayf70IXA6j5JpdG seVPP4RSK0LoSnZh2zvKLsCEIrT J3fEbVllZAqCFGfzc31hUqgTPsm LEA6EGQwobIej1Ogi0jzIlJxorO jS7ujY1EmMZOgHKBsCGXpJlRqmi Xst1Nlg4HklCUebDm0k2dyIHAdW TRhvPtei5cfSKR8JJDxvWDwJ9pf eP0tWTKnIP6mvurkk3xmFEiwBJf xOZMimCI6cbQ9NNRmoADtJ3UimC 1jZRKgKGeuENRhexn8YnOkKj4vw GVyeTcyMFxzYmtwYWdlXHBnbmNv bnRccGduZGVjXHBsYWluXHBsYWl uXGYwXGZzMjRccWxcbGFuZzEwMz NcaGljaFxmMVxkYmNoXGYxXGxvY 6vqZiJwHgXyLhy5NPWgcQBoNOVa Ctk1OMVqtQUsKFJVmYogbL6bCSC hhAjhrU9cyTC0TURvubZfxCNDeY 2lJAMBvR8oNmV9JZIlTrn9RGA0L jFccGFyfX0= COMMENT (test code s1xeoWXlHQKagBV5OqToWDDvx2o = 3359) yd1SuhURssGHpOJwcgXRddnKwhh 37eDH9zA64SR4nXKJwIrY6TPJjj xM5Fuc4EUMiGIBdvFIxJ337r7zj k7meqlSpkXL0iIadZMFepjhqWvX 0SJceRJObvrcdPTn3UUdzFLFhrH H9GBZifSCuE3GzWCVsLI2onvu4U ON4QPanEUMhLiC8IGHvoZWmHSCh uGprJPswn116SQM6PlYkFLQlrlQ tjIqliS5wNnSbCBOQWHT6sR0kid FdLeA9lBWubNIsx0DkkXUuqQF8H SHxCXWaj7KmhxQrci0pBUYyneNm e62gifRgbYz6MEobM7M8KPBdxW2 mlZnfLVRaJLuvCMPuPHWks65yqu VztCXmp4Z9yCKrtMHzzM8lLXKeN TAfvzM2jMTrbhffmGQaLJ9tDZzh AvXiZT34JEFsm5BmlKRhu3LpeND gdGhhdCBtZWFzdXJlcyAxNyBtbS R3mVNhRHKeUL19LHKwrUboZ6hqQ FRwxzHaX00oQIQjGbQYtSUra72b SKJsm5PdOFFwCNWpOTT2BiOxKJI bnv48hS4bdCInuXGcWKZxf2ApoX nvOZS2vV9nHFbvPLklVVDgo85qa PE7mDWggiY5CkVvRRplUDF6nV1b IGlzIGNvbmZpbmVkIHRvIHRoZSB ppv6klBR8RKxeuv6aLKw7qsBwdY Alt1NqdAvjNHI5gBDxj9wpapMst kLxQUZhuPnfeAXjWbHgOJPxbR2p gZAyjGMxszJkt0xeucEtnhDvCVP lmIrmnDPjBPBgdYJaoi2eyEdbnP rajoKiV2XdZXUpxB44XJZha49gk SJku3Ujcq1nUVIdWTJvLI7xkjRu NNOry5iygPEaMFXgWPN4qwJryXO fu4NfqBBeCZIhCKR8eMDcz5JfT2 mfPKgogLAyW9mkwjWnpyCpnlJiS UWphcWmKv3dDDX4hT4zDkamUSH0 SYNOPTIC REPORT PROSTATE GLAND: Radical (test code = 5765) ProstatectomyPROSTATE GLAND: RADICAL PROSTATECTOMY - All [id number] Edition - Protocol posted: 02/10/2021 SPECIMEN Procedure: Radical prostatectomy Prostate Size: Prostate Weight (Grams): 80 g Prostate Greatest Dimension (Centimeters): 5.5 cm Additional Prostate Dimension (Centimeters): 5.1 cm Additional Prostate Dimension (Centimeters): 4 cm TUMOR Histologic Type: Acinar adenocarcinoma Histologic Grade: Grade: Grade group 2 (Paige Score 3 + 4 = 7) Minor Tertiary Pattern 5 (less than 5%): Not applicable Percentage of Pattern 4: 6 - 10% Intraductal Carcinoma (IDC): Not identified Cribriform Glands: Not identified Treatment Effect: No known presurgical therapy TUMOR QUANTITATION: Estimated Percentage of Prostate Involved by Tumor: 1 - 5% Greatest Dimension of Dominant Nodule (Millimeters): 17 mm Location of Dominant Nodule: Right and left anterior Extraprostatic Extension (EPE): Not identified Urinary Bladder Neck Invasion: Not identified Seminal Vesicle Invasion: Not identified Lymphovascular Invasion: Not Identified Perineural Invasion: Present MARGINS Margin Status: All margins negative for invasive carcinoma REGIONAL LYMPH NODES Regional Lymph Node Status: : All regional lymph nodes negative for tumor Number of Lymph Nodes Examined: 4 DISTANT METASTASIS PATHOLOGIC STAGE CLASSIFICATION (pTNM, AJCC 8th Edition) Reporting of pT, pN, and (when applicable) pM categories is based on information available to the pathologist at the time the report is issued. As per the AJCC (Chapter 1, 8th Ed.) it is the managing physician s responsibility to establish the final pathologic stage based upon all pertinent information, including but potentially not limited to this pathology report. Primary Tumor (pT): pT2 pN Category: pN0 ADDITIONAL FINDINGS Additional Findings: High-grade prostatic intraepithelial neoplasia (PIN) Additional Findings: Atypical adenomatous hyperplasia (adenosis) Additional Findings: Nodular prostatic hyperplasia CPT Code(s) (test [id number]z code = 3357) yt6MkwKGutNYaMTjquHLkivLftt 25lOC1nS35JH3mCKXaNqI0CQQrb jL5Box1GWToNDQavRUyT288m8ee r3npcuMrbIV2pUahGPPdvwqaEiR 3QNynDFLxsxwzXQm8CHjeOWYusD B5TOAukEDuT1ZzQKNvTQ0sbki5W MW5OQavDWHiNqJ3KALvvXDpFORv pSqlOAopx046GTL8WjOhGNInxkR crVocqG1bNdEaFWW7QYDhPOL5RH ozFWOfRSqzHYvrkCDerJGhQWi6W yT0QZNxud3= CLINICAL HISTORY o9gsjAAyXOZymSZ1XjKnJADxk0g (test code = 3356) hu8RapOAtiXJiYAgbxTWaqhVxdu 69xWE3tZ99YE2bSMNuRyZ5ZKIse rE7Jhw4GWMiSTStgCHfQ798r5of a7wlnqOpqKI6jBtsZJRhkrevOgU 8KQyhACVlfnfqHWi0NDwsMZPahL O9QAVxcEPuS2WbJBKnGF1wfrr1O RU5DFugDAUaUoG1CLEerQQhJNPi oVhvCNato302VSZ8UwSaBOMctzX yyNbfgB8bCcEsVYGXek7hoQN0YE FkRM3gQXAbwFXaxS== SPECIMEN SOURCE v8kbjSJaNMEthGL4CsYrFLSnt5b (test code = 3377) nk2SirDBcdYTmKZqmhSWlboBewf 36eJC3tH78AI8zSTNnZzC9LPPfk tU9Ilp5MKHyVYXrbDPdE269s5kk x0ubdvZvvWF4nDugODBomvivRxW 9HQnkLAUxezwrJIg3THvjVLHisG I1VSSbaANvV7PvJNGaNT1tzrq7O KL5LAkzQCPbWnN1PZJkmMCwSPEp aXrlDBeii011DPA7PjSiQWLortF bhSoqqP5rXiDyOSXOWdOHgQ0huZ MKz1WdPDSSOVJdbSMqp4SvpAwnN AZkpaNUTiXIvc5prWB3RSPrjjSo D0OliE6zbEFVWZVwJ1jht7cwAJD eBy1pLJupiIwsOm7jWQbaEerjdJ VxDWMxtdphNJBjrvYEXeABwC9wy SZAy5IsYMBPAJG6EWZodLWiC8yi YXJ9 GROSS DESCRIPTION o7fygFWaBWInuJPNBLEvY2zerjX (test code = tHQAbnDDuW9RateqkMOkxMW9nZC [id number]) 5ywErzuYYsnEPgGC3QEQFoWsJvL HBhcGVydzEyMjQwXHBhcGVyaDE1 AWAnRZ6qbkxlCGalZIpxJHJcwcC 4VGHdfXYfL4PlMIPfJN6ybddcJI Z2WDgyoJ5cjzFYWyyoDr1gxRRus HtcZjFcZmNoYXJzZXQwXGZuaWwg NYVnVOq9xN2PLuodW57tt4L9Vgw 2YOLsDMOgU2KtPX8mJYKcxBXeT7 2SIehoNEA0IBYGTkrnODCgNG5Fj 7opWOQjhXBlUHU2GSakwBRfXVVj NNPeTPd3UKAnXJtgeGZoFL6hgFa lFbxdbBrdn8HnaXJgIYemBZZrTI KdEEolREPrMK5FGvGyHUU4FUPiW UIbQBe2POz3FB8KLhBtKEZlDTar Fgl0VMMdBMz0GRffJN4OVNZxTrY xTyTrKHK2NLE7BVTmWCTiAnAsKF XuXVZgCDouJUhwkTNtHZ2iaFhui HWsfnJPYeKRoO7drADBd0ScJsgq OMOrUHzvCHEqN58uw6CPb3XhSP1 GOJo7qmDjxcbizU3aZKPkxfPcHA pbdKBfF7yvZdQiWWDFBKAixNRvO CBmcmVzaCBsYWJlbGVkIHdpdGgg aDtiCFFdrXrqkqZxU2B3umOgXT5 qZFSqSEUdV8PbPNMkU03iPZVkvW 4lIHLtQN1bBDJdSQMtpRVet0Atf OuwTRi9mGPqLV2kBQOxAmLhhsXg ZAVzPSM0EVNsZVJ1VPGkWAGhcMC hQ0rcSWffgLGhj8KhLbHiLGjfx3 YkHENll4L4MPNgfgFjwIZixDJlR BJPfUWvb2TuT3anOT0zaVPgl7Xg rYTkvSemn8IvgOqexoQiDZGyHYR 4tIGcPUSbpyUxTBSbc2BxYzpyRU QulJJ8VAc7aRAhJC1jDIMavZCnh 9CwxO9rRXGwVGC6GDTvRDA6UHGk SkDugF9zYQWoMIPjxGYzqH7ujzO aidIatsQeaiLsfKFmlXTvwFD3FA SiZSobfyKrCFdnegWyD9UtrNyst nIkg8LgJxaxdG0yJAUtZeHvYTKg p6InQvqfBXxomNJfxFUimI3faOY wr2GrAZmnesQuESEhYDF4FCBbfH GerhFncmTsJmBeyOGbdD8aohfgG JFkDTnPVo7CZPMjTTpmKXEdsUNX IZF9YQ6bGOnhoVCkmziwYEXnW1B zI8BswfDlqTMpRJZlnjZmd5ljZD F7JHXipHCgsCMbFrInTnczLDY0E Rh3ATwhTLSuX0LcI5KrWJuyXEW0 MTAwMiBcXGRiICBPVlIgIiAzNTg ySyk8DrV5QBu6KNXMThDaXzRqIm w2HzP2XuLdEVu3PWs2YPhQOuO7K Eb8PRKzQqJsFBZsLpqoNYk3ZFFb RUoyLAQxfPGjRZczAqbcOQyaL90 sYuKeAjuevWGxfiQDIfGClx8sdC Q9AM5rlGTzTI2NEWBtwTMQWCL2Q R1eWOJVZiamiYYuRDDhbMgnCGzb pE7cPB5MEEx3qqOhXIAyEYjtttU dMPXlG6KtpdZcTLEiPZSeNGwpAq GpIIGqs4e3tTQ3iXWcvMR0gOWxg OowAnUcNU0mxHGfJI4hZXkoAZhv nnVwm7KwOU93aQXjelIsmiTqJxN dt6V8ZGPbLqOmnpPhFDczINicjh DwmDQinWYkbs5gfZL3IUD2e626E H8lDZK7fjabPiS0UlUzT55sSGXr qZW5alLuUXInBIG2KoNmL51ksTR nigL4UEJcYJz0HPBfbvEpRH0dMI IzKNYknDSzwL4nBQGpRJApw9Jfz oisxl2vkiTWgITehtlsaHDeJE4p KOkkYzOdh5SbfB3ijIZ4BDBuZ9z bdmUsAUEabTUbXXUjYSA4BQTrHJ T3UKBlNwXayXEhldBtDf0fULjcW U90JFhnFM09JQJoLHKgf8SrC1Mf alCpoC0gjrOMuLRrgylxvWFpLE1 oNBsmBpXgmiKeIEHvMeQrRS7pOQ 7dXXC6foQkYQ10VQCnAFIrFNY3C sEpS55raX7jtGVcK0AhBTFzu3Gy F9WsykDhgOseHZMggKKhZtTfR24 ecP0dVHzmcYN2OPKyZXCburBMGl dvXPKuCHfRsKFti1O2KAAmc0GwW wSgLGLgQpI9fLGhpNIfc3DezZGt eUGcvNWiuVoqVHNhuxB2fjDpUHW zUZH2i5i5YHWlEZGxy9UdhPo7ST JeG8isFI6gFZasILVve4W4VAXpP RvuXFEnpbrqwXz2OVTdP5Eam65s XSXpjw2nPMJlMEmhhR6uJpTnGWD cghVjkVHiQL05sEXbjHhxKQ4hDB amNRXetLDgWB12yYCcouIyVtOug NnkKWGysYKgQC8kC6ChaYqvwxSx kdL3PJTnZEEsqGoypa42XK5suS4 oM9ExsF33bOj6DOmycM2di8kcbv 32dzrlTg4xIHwjtEPch9E5xAJsA BMgy0J7MINiZyRpXUJuxkUorK0p HSBaff33N9wzsSVjAT3cDb6oJLd cJ8DkeEClzTKyu1TqARIiSGEcOL VudGlmaWVkLlx+DVHnL3Yad12gy lmla3MhnPmpBYUnoCibZLforwEf bRVlDZOujfK8OSLpRKEhyTogpb4 0ML3zKAZriaRkOLXdZRSaEREmjZ Fwb6BrSlZwOJ1wXYwmGHMyu2P6J QNjLJCkQHHxTE6ujnMnSTWhm6es bGVzIGFyZSBlbnRpcmVseSBzdWJ grNP0POZjSUWyapOODqazFHUqHV aFtgahO44cSAvslSZaZT7DEjz6G TogTGVmdFxwYXIgDQpCbGFjazog WwdihIVojEAnYA0ZVDQlanOJBoE uF2Nkj81eN21zCPgsuIDoOF7AYw HrXdI3JPWlA4v9CMLweQbhNPffr bAikYIbJLKpqEMopLR5QAKgi3Gc xUEggHjhvFn8IQWdx83sbDLwkHv hURjiqR7dSXjmhTMmQBQxjtZOLk Z7KJZjPPG9TMejOpVsw9YbtC1iz UO4SSXpI2vrYEA7It6diEWoEFYo VXT5VT87bJJhvXczFxAaiUIfcb7 6zJ4hfPF0kuGqnSQ3ENngxSQyRV 7IHkShEWxpCaynuBZaHB2nJDdtU oBmmeGgJJSxTcHmLA1uDR4jnoyb fawsER6cNaIjRAugRCLfUZvBYFV 7IIStW5r2VZKpOCeivWOyJ2mfRR UxRJDjPX5nsMH4ePSjHCZzY1Ewa 25zXHBhciANCkIgMTMtQiAxNDog ELWzaEJlqGO5LF1gnmxcmozvvTW viXJcNDtdnMeqqoHqAEN0oT4gp1 xvLTCzJDtVTZP9DYJdPTP6IHOkD 3p9RZYlRNHaRQEyMzKiDPVrMTNg hW0hASUeagMimjXrZ7GpNZRtl6M czFndzlFcdAGeHK6DDs4dGl7FAG P0UvEFKTO4NCHrTKVkRKClKeLzK GUfIQDktW9jBUUvosLuxaMcX6Cv KUJul6IxjNiqhzBzkBJrDJ5XUfO 7BbPVym6dsYA5UWgcp2meB4LlRX buLZSoQDiLFSTmQqXVfr1xaDM5Y Gyiq8zcT0IcEflrGTVtVUuWIXVo QqXFvd3etDY4AMdqp4tvE9JwD9v vJRUmJRxACBGzPmSKrg1foJU3MN xsh2tiP7VdPNUobFznhRCrzKUhJ KmmodDpCdLzTkoxJZLmj3IoaLAc IHNsaWNlIDQgbGVmdCBzaWRlXHB zdoCXVuRvWqU6ITNkh7V4CBAgVD IazQulYRO5JVKbM6b4ZQVwJCKfx XZrCE9WYsMyLCnfARBar8LckSIl IHNsaWNlIDUgbGVmdCBzaWRlXHB nbzWZOiJuBeR0XQJiq9Z6YBCgLM DkdGmyPLS2YLCjO9o3MVElZQSli SFxMV3ZUwIfExavWANzs0TukBDf HJWkwONwFKViWLkqNmWot1zeXAs uWIWkZDvTJPZ3DuEYnf0irBU4HK emd3twF2LyUbOzlDzjoBPsrQNsV UXhqzJUJvUnYtk3MIXqr4L4IOWn GMDjgRbzEKK8LXfwSlUrh5ksADI ytWVeML2WGwLfMWfxYXZlf3ZiuJ IqEGNmbIStYHozeQLrAJ9DNbEmG MmyRXDqb1YqlKJeLPUycQNhHBxk vAAbAE2UM8gmyOCxYN3YBWWvryP NClxjZjBcZnMyMiANClxwbGFpbl srwOrgSuUdzEUeGkHvlUrdhB28E CMbsSZiNFE7GM8mKNFnwkgiQWPi VNViEZQ1DOquyT62oERlXYJcZSM wzIPsaQ6Vr9cbKQHxxKTeBCC6ZY bruSMwEEIaMULmXXuoGoTvY7KXV ZXtEqW3EPY9RcXdLAt1RAbcH8FS BSVeKYJ7KKG1QNDkMzJ3BVd5VPF ZVt8oWnN4PnAsHTE3UWF7RGd8SO xcdCAyIFxcZiBBcmlhbCBcXGZsI KtdsdP1ATMoAGNfoMxtsS7aTz4y OJqhwAmdIo5xWM1jlYFnAN1BRNJ knNVWOHW9FM1vEKEDWmtifYTxMN CwbKtpRRarqQ5xPD2NWTa0fqFwC FMkAhVtPiCdHZa3ZLRvBdNbx0qm cMOoUSmpFFD1lGKzKZSxIWDhGIG gIX23SSqOLYOsnuUqWUebzWWgyD NhbCByZWNvcmQgbnVtYmVyIGFuZ HKokbmbvNZwwBQasorlUGz8fESx YL2sZFIsRBqnKMCtQz18DQumUs9 0VYdpQR4sTLXpKCpialKkqNgvoi Zpn3R6tT2oXM5fKPXfoNGww1Nzc Asur3HrEfAMcCYfd6OcM3ztYA4e bEPhq8LfhBYyzScok8XytIqiisP fEPLrGAJeglBatRKpXRZaBHS9MR EsYZG6LMQoBfIprPLpHCA4mQOee X8koBIub5MzCwSiGEcrBLDyUIXa lVCoIRneNGErpRcdBPj8MUS9Ic4 wwDSsUF6ryKrgSJJtdBscLYQCQH Q1jW9oPHMhOUQ7YTryhyGnExEsW zD6GWTouYfsxXgkgx9pHBwcErte UGZ6GKCvxJhyGNPFSo6MBGwdHsH yLQcdMLEsGI1uAZZnMLQsgTGbKC NswqHSOtVAGUxdvNakvA3lEMAkG 53lu0TDb1NhUPFyHOuom3pjxUxi m0ImoERnFQhfMBPbjUVlIGqgnY7 dZlJgf9jefSn5DQvjprZ5RUIvjp 6POwmsHhwctLfpv8DndLTlQFxtO YRgBJJmEHiaWRNuUG3EArOwJGH8 PLFzSANpOOs6PJm1QP5PLjXsFYW oZGhqKTOfZDIdODk9SWpeVX9FTO GmCgGvInK4JXG4YPW3IDRbTTIiP sYnPHZeWSXpJXcjHYkreQZzKV5t yAcnpaF7JSCuLPkyUBBmZJo4mPC tFF6bKZLdYONaqvNYRhlvtSdfAm VzdERvYzEgDQpcbHRycGFyXGxpb jBccmluMCANClxsdHJjaFxmczIw BOBaA0KoplHgREWmOZExPZixMdQ pUYOnv5i6sWT8uRAlgEM7rZXkiS zhCuRkTU4ltYCvHI2jWAyhFFwsh jCwq2XwUA71uYVzauVlikIpNkib RpHziJGwdpumIOx9dKXeJQ6eSUW mNTjcHVNjRE1xJKeuGx5dGRggII 8jHHYbZVztetErlAgdmzNum7W9k I1eBW6mRLVclWUyb7TtzLyvx9Og EiLQqYFli6MzC1bnZG3igCSyz2U yfYKzpMwak7NpvAxdtfMuZZVzAX EzkuWzxFHgMUVumMX5XEb9jONuE M9vNADjCTQiaemnrnojFH57AHKh ZcOwlN8qTPKgYAYmqJVdbF0hsaF qsfZfjqSwuyUbqUZgpYVooYR5CZ OiQWdncuWyWUwvdbFiG6CtuExxe eOgz2KaDanshH9tPIGoXuPuWRxk jDKtaQXvuB3txZXrq0OgNTguowS dLVS9IZIkzC68ZUC7NKy8ySJnYR 5pYNTgmJdiJBERTr7GYAafULAqh H4qqPTut1IfMYHdbCKlT8DjXHbe lY0wQCG6HVA4BbZAOP9cmW1lIAW co1Ppx7NvM0onMI8hlEFaRE9FR3 cNClxwbGFpblxlcGljTmVzdERvY wRdtBjqcE37WINzaZTxYEM8PG2s VEMhioieGACyNFKiVFH9ZFyboZ1 8vULxYTKvCGCuxROplE7NTFFdLG H7QWiwwG40oGUaHO5IZCDfOCD5R NEcxIDfZRR8KP7aaS4BpX== MICROSCOPIC n5pcrXUbABYhzZN2YlJlYEWae1y DESCRIPTION (test jb5YgyXAefMXjELwcwCYmcdRnvx code = 3371) 54vSL5iJ03SM7fBRQbCwB9UVVep vB3Ziu2GHDsEPUwhVKgP218n1ax w3pkrdJosXU7nUrnEMCiugxqUwX 1IZymRSYmuozlYHh1CYneVHXhxA B1NLOlhYMlA1DmMUAtOW8sdbi9Z KR2MHxrIJByCrD6UNOnmVQnWYNy nEgqGTsvh604DCK4FiQoUQVfpeV qfStkyP9hJrJyUUNHCWTaEVVexx Uxcv2xPG3niEHzyE== Gross assessment [facility] was performed at [facility], Department of (test code = 2777) Pathology, [address] [place] [id number], Technical component [facility] [facility] was performed at [facility], Department of (test code = 2778) Pathology, [address] [place] [id number], Professional [facility] component was [facility], Department of performed at (test Pathology, [address] [place] [address] code = 2779) [place] [address], [id number] 16:45:39 Test Item Value Reference Range Interpretation Comments Case Report (test Surgical Pathology Report code = 104) Case: [id number] Authorizing Provider: Roberto العراقي MD Collected: 12/01/2021 10:38 AM Ordering Location: [facility] PERIOPERATIVE Received: 12/01/2021 03:08 PM SERVICES Pathologist: Svitlana Casey MD Specimens: A) - Lymph Node, Periprostatic lymph nodes B) - Prostate, Prostate and seminal vesicles C) - Lymph Node, Right pelvic lymph node D) - Lymph Node, Left pelvic lymph node DIAGNOSIS (test s6dopJLpERZrc0xgGYBhfGYhJqQ code = 3220) wMzNcZnRuYmpcdWMxIHtccnRmMV xlcGljOTYwMlxhbnNpXHNwbHRwZ 2HbotgsJPozKN8jNK3apCspaFXh mZDnZZEoOhTan7kjm128wBCho5i cFSIIvqqdbRz6yEjvO96un5N5Lz cfV48zkJMmIOO2BXZeCXDhsCWmJ PQyHAU6EABdbPUzF5kxYLWyJW5a nvjePIujFKjlZERtoHQ9RPAnpZV jK8KuJBDvSSkeDXSmbqg6OpMhFt 9vdGVyeTcyMFxwYXJkXHBsYWluX CUhUcUjPT3tRNuUCNufLe0REHki LKKKSHYDA6JYZJOJYqkxAGnWRSG KX45rmRIlDNJlPhNvDhJMHNmVGU GBSgAMBCTYAT4CELMZPNSNKQCgn ZCxECZeXmXgUx3oTMhXXKaHYXZh UEvLI1EEYMnPVR3LDYFOEDFhYIJ aeppyFHArPVAlerYBUyKUAf7DYE TGHOfaCu1EY5YMDaQHJ2YDY2HBI KENYSTOFy3RH10DMKVkDrDZCRDH FHSLRo4KNXKYYTMCZ22XXoapOOA weOj9ClLvkAifHeHxGC5MXTJFX3 GDOqVJZl0BUUhoR6dGHAUDKuVKQ 32AGVVzAxH1CeZwC0MFYMXsV2LO UUIfDipjFG5QI6WUHWZGXsTPBzN EXHBhclxsaTBcbGluMCAgICAgIC XuFQHnWMWqXUCNOjaQP0JLWS6IQ hjAVeYdCfTIXHPGJdWcBu1JHIIX VL8PTXPhzgz7GUGtRKPSZADLU94 UPI5UGDOmddvvNDEzvmzkSGTkDD AgIFNFTUlOQUwgVkVTSUNMRVMsI UBUYa4XOJEeIMNMYOXDTXJxNWWE JEIBT2EZWGqUNBAOHHpDLPnqAHJ UT4YRLQHPJO3FXZbpdKVjILDjUd QsRD5lEf5eGEXPPE7XX4vAZwPRE YBFIj0SDROqKZIzugwpNDNdGTZy aySNDmCHMG0UFLDWA8YPRRVOCRf QHRVKIZfKXPRxNPXAA5sPEK5ZLt jvHCQvEsf6LyXnYEIKTjMNWQ6AI 65qCVdNWWpgAw7ZLYBlLFBiLczq mPRuLMWckxeouWLaUV4eWXlAVTo yCw9ZHYldLNUYWNCAYWpFCRTmXS RZO3hOAO5DBabjHOXvMfc3BmFgU NPFSpYHDN4GB21lAAvDBNxvYk1Z IIAtTU6nQEIotXXrqNhftpEbTXh dp2NiDPtqWJAbRJ8raTqmZWFsYE 7nYNScB0amdL7ukoi2VuMgBZDyO dV1NUGbkgO5Tjg5EZWgNXubw3am i5DqDVFfDEz8iIysSiNeKIIhk7w zcyBcZmNoYXJzZXQwIEFyaWFsO3 56z7cjr4vghbTdpYT3CYEdYVR0P CwfkeOvjhE9YUlwePHiKpU6RZaq gcXzCWokvsCzekVmHgw0BFXxB34 0NTA7jVqav2ylRQE2UZLlSMYrLy LjDx4dnRLwC306GDGtESPXBHCbs On3UDTeodFpehPvvSOOl766I633 n2fsMEUmmjFeaNrZzhvcw9mzP99 9XHBhcGVydzEyMjQwXHBhcGVyaD I6TPAsCT6erzrrRYfsGBhxGOUfg wZ5YWAtaSMoG3HsQFCzIS8tzrtd MXM1TZuaYNPeQSS3OjVcFMSvy1Y urig2YbRqwc8ugs75IGQ2g4RojH zgJQM7NTM5XeGtAd3pkNJwOWGoZ R9nQlUuoIVbPPFuqj98aZnuMJlf SBR0WRLornGvw2Vvi4kaEhVjrfQ zD9eyE7ChZKRyWYCpJDPlWlAcue Mag8Zuk6WlpXUtqKd2a7ayOOIxV AGghPzzw5itWNJ2DWYryTEiR6qf kI7yDMDvDP6vzgbld7izGVxzQHt mBMAvdJY5mmO1MCFfrGUcR4SzrX 0rOLCfYUxhXMRdrbl7JxTtOa4mp GVyeTcyMFxzYmtwYWdlXHBnbmNv bnRccGduZGVjXHBsYWluXHBsYWl uXGYwXGZzMjRccWxcbGFuZzEwMz NcaGljaFxmMVxkYmNoXGYxXGxvY 5psLwHqVaCuKcp6UKGzqJBxHRJx Jmp1AFYpqDXmLCJHmVhjvQ6jPRN mnSmtiL6akJD2LVAqyzNomVYMrB 9qXKFLnG7zXyW0OQVrHxj4OLH9S jFccGFyfX0= COMMENT (test code d0daoXYvERRijCU0AqOeHYOde5l = 3359) wh5GmoELrsHYySCerxRHimaOgxv 52wEI6lW32QH5bRMYjKtL3OFKop bS1Fap3EMSuYIPyyBMoN485g1gc s4fkjrLsuBW7bXgsVPUmiitoQwV 4DJsrXVSiezkxUQj7AIgcXABsiF B6OGHpnLXuO9SgZVGrRS1ydrf8T VX8FZwiECSuNjH0PPCqzXBnISHm eFaeFPtwf249AXN4YgWmIJLmctI ewZrtlA8nNsMzGXZVNHH2sT8yzw SsYsV7vQVdtTWmj7ZmyPQqdAM2G WOlXVEmc3IrfvDler7wRMZofrFp v56kyiBonCe4LRegO6I8GKBfhQ2 ahAwmHSCmBKstJLRwWITca78kwm QgqQGzq9F0eALvaZYxfJ2dFZFhU OLrjiN9bCIrowkfuVVeXR6yARme OdXbWL69YCUvq0SigNWfb8WkaGZ gdGhhdCBtZWFzdXJlcyAxNyBtbS A2wMHdPSUeEP77KXOneHceJ7kqE KGmxcRuP93zBDEeJqNLpHXjm09d HZAtm4QbKJLmEPJwQSJ7BzJdPZN dug49bK4mpJYoyODhSXJks1TdtJ cmGJY7bL4nPZwhUAyqWTUse00mx IR8iMTmumC8FaWjXWenBHK2iA8j IGlzIGNvbmZpbmVkIHRvIHRoZSB cwl2goSO3HKaqpn5bMVs9hnUrrU Air3LrsUsnSUG9qLRph0pwdrQlb ePnRUOwdEznsIIeYdMhSBYqrS9z lBItpEKvwfRnr6rgyuOozbKyONU upKymuRKpABTuoNWgla2gvRugfI hiywNoM2BnMIUqlD88TNLhk76mc QHsa4Osuu7pVCTuTQPhPP0wnvXd SBBld3bkqNDhQGMiBKQ5umUakKI ft8GhtUVgKWUpLJF2tBJqm2KuT5 lgLIetzGTcA7qkomIdgfEkzeYvD SFgxnNxAo8nAIN5oU7aUpheEXK7 SYNOPTIC REPORT PROSTATE GLAND: Radical (test code = 5765) ProstatectomyPROSTATE GLAND: RADICAL PROSTATECTOMY - All Yoaauvmya9yd Edition - Protocol posted: 02/10/2021 SPECIMEN Procedure: Radical prostatectomy Prostate Size: Prostate Weight (Grams): 80 g Prostate Greatest Dimension (Centimeters): 5.5 cm Additional Prostate Dimension (Centimeters): 5.1 cm Additional Prostate Dimension (Centimeters): 4 cm TUMOR Histologic Type: Acinar adenocarcinoma Histologic Grade: Grade: Grade group 2 (Paige Score 3 + 4 = 7) Minor Tertiary Pattern 5 (less than 5%): Not applicable Percentage of Pattern 4: 6 - 10% Intraductal Carcinoma (IDC): Not identified Cribriform Glands: Not identified Treatment Effect: No known presurgical therapy TUMOR QUANTITATION: Estimated Percentage of Prostate Involved by Tumor: 1 - 5% Greatest Dimension of Dominant Nodule (Millimeters): 17 mm Location of Dominant Nodule: Right and left anterior Extraprostatic Extension (EPE): Not identified Urinary Bladder Neck Invasion: Not identified Seminal Vesicle Invasion: Not identified Lymphovascular Invasion: Not Identified Perineural Invasion: Present MARGINS Margin Status: All margins negative for invasive carcinoma REGIONAL LYMPH NODES Regional Lymph Node Status: : All regional lymph nodes negative for tumor Number of Lymph Nodes Examined: 4 DISTANT METASTASIS PATHOLOGIC STAGE CLASSIFICATION (pTNM, AJCC 8th Edition) Reporting of pT, pN, and (when applicable) pM categories is based on information available to the pathologist at the time the report is issued. As per the AJCC (Chapter 1, 8th Ed.) it is the managing physician s responsibility to establish the final pathologic stage based upon all pertinent information, including but potentially not limited to this pathology report. Primary Tumor (pT): pT2 pN Category: pN0 ADDITIONAL FINDINGS Additional Findings: High-grade prostatic intraepithelial neoplasia (PIN) Additional Findings: Atypical adenomatous hyperplasia (adenosis) Additional Findings: Nodular prostatic hyperplasia CPT Code(s) (test f0pdaJApZCOsrAK8IxEfJCHev0p code = 3357) kz8EahBRpdONeVUjsuRPdciRpmi 64gJG5aQ67XG3kYBShBrT6DEKno vP6Gsz4NBOnULSbdMDzI505r8vf d7hpsvHphQW0iItyXURsrcpaIcO 3UZeyXJAkjswdQIo2RGklBGZvrQ R9SYQbzYXaM7PdKZOsIJ0mxws1F VI5KWqhQDHzFpE5AQOixKFeNAEp yGaaPZvzm254FPL6WrNqXNXwzmX qtJsxhD2nRsCbBZF0KYUuRUW7UK taEWMmKIrrGJlfdVNguJNbWTg5V rR4NCQfoj0= CLINICAL HISTORY m4bzoVHlCRVosEU9YoKtTZMpl7x (test code = 3356) lk5KatOXrjINhQEdahPHppyPflh 06sHK1xI11ZB7vMTDtFqD5ZKZhu kN6Dmk5FAGrYKVrdMMpD664r0ye c8qcgeGpbYE5xPqlHZHhlxvaFhE 5ALrsRTFbeffvJWv6RXaeYFKnvJ P6VTEczDIhT9QvHSJaVA4qmle2Q SX0HBpsHALbAwO4XCNyoTAjGCMv zBpbAQina714LZC7DqDaVUQryrE zaTsgpV6aHpBxJLXYys0ziYH8WY BpCH7yCJZhqASozR== SPECIMEN SOURCE o5aeoMXyRGQpyTD5IeAzPROdz3e (test code = 3377) pt3VxdMNgjBCeDJhdiWFsyzUtee 45gHC5jC54XD8sRELjPiO7NMCwr hA6Pfb1SOQgJKEoqCTtJ156o1pt h2pldmJteNO6pHdoXIZthvonBoP 3GLxnIASwgrruLPy6BPxySMJxnP Z3WMSwcJSlO4CvEJXlLT5dmts6G OF0HDmlGYGdHaO1LZNutYUkOBWq dZsfGUusu842DDJ6CxLqGHZxxoR thGyelR1lKpSfCHZADbGDpA2ouN DLv4TaBAHYRRKqlVVpw8NkqXrrU VBmkdKMQlIKho9uuNV2YNUopqVz T1JqwB3eiZBYLPNkG4drk6adACA fCi9rSVmclSwnLq8jTClsTgzvnC FeDPLuqzbxDPLmshDCPsZTzM7nd PKFc2OnWQXSUMP5ONSvnEZuJ1tt YXJ9 GROSS DESCRIPTION r8whaJYdDCBaqZFWIPYwL2hudvS (test code = tSOLzvGDeO1PjvqheMXgbYI5wLX [id number]) 4ffSgktGJxfIKwNZ7DHVCgNnCaN HBhcGVydzEyMjQwXHBhcGVyaDE1 HCIeBE8ayhakVLyfBXuyMFGtryG 8VVKviNUyR8WyIGGkZR9wwigiNA Z9ZGmbpN5frnEIFkbeVd2zwZCek HtcZjFcZmNoYXJzZXQwXGZuaWwg QJIiDIb8mU2TEhwdD82xf8M6Zur 5WINaDKUhS2DeVJ8sHQIanNFlA8 4TUqarNFD4VKCNIfgcBIFrBG9Cv 2yuRPKbiVThPZK6SQhptOBkTHGz CPVnJWg1JTTpTInmtMBxCQ1gaPf cSeeagBlea1YmlMWzBAivFYDpEQ KmBCwkJULsRA6IHnCcAAZ9KGLyY AErLEa2OAm1CP6ZFhNzRADhXSrd Jmy9LZXpKWt1AXbiFM9QXKTaMiU iPhSmSXD5AFK5BOVdYRVcOpVpBS XwJGIjWBmrSZhgpWJdOV6jdBayl DQgzkDMOeRMlX4hqHKCv6VoQitq QOYrGBliTAAkW73fb8RZb6YxMU4 QHNj6hnXhrqeszM4gQMLeegNbWU dvgKJsO0tjVuTfKXRDNZUcvSAgH CBmcmVzaCBsYWJlbGVkIHdpdGgg uLwvZDWtoIdkkjTkJ9K7cuJpXB1 bNEMiWHXuT4ZsRZRkQ67cQXCytS 1kDNOmDM4pRSFoDJTqpKZcc1Wnr AwvUCd1xSUePK6xSRUoEzLfpnSz SQAqXQG9AKQnJFR2MROmZTVmmZS xG9lzHWepnXQun4UfRmRxKHqpb3 HqPTGfj1E5AHCjgeVepLZiuECaJ QFQyHSup8DpA8nqBQ8ilCRcx2Jy nSYknLmkt8StkQwnyaExNWMoADM 2qGOqEWTjufWwRLNgs7MaLpsdFW FvcYO2JNk6jTCjGF6dUATrrYJbo 4DcgC3nGPKoIUH3JJJzJGM6NFCb WrDbtL2eZMEtFFVbdZGwrJ2karU ohyCmauZlglFagGEycVKdgFD5CY CiTDqvocZeXMnfehAsO6YknLipn tHju1BsPsnfkG7mDCHvYzSkGGEy g4LeYoynSOietREvzKWhyL5feBX kc9CvNAkozuGuHITwLSJ5ARAvyL VplbQtmsVgNwAhaEFycE1sgnkfR MPwNMtJSq1LVGRqPYfeKBYtdHOP YEL4BV8nCNiqeOVejfuqWFNwC4Q jI2RixoQxwXRkYNBfrsKac3igZP Y4UBYgtUFqlWIqStOwBaakQYT7B Po5DLvkMNBgW0UhO9PmXXviUYT2 MTAwMiBcXGRiICBPVlIgIiAzNTg oCkf7JuQ0NIo5RWKTHhFjJaWwTg j8EzT0OkNdBTx6HNb6NQnLXhB4E Zf1VTJbFxMiHDWiIggeNPd2JFCz DMaoNBVbpWCjLSucMnasVKbhR69 pOvUxXywqzSBdspAJScZXai2jxD C8LO5jyXCkWN4HOUJncAJNCXR1Q O2bDVEUKngvtZQtKSXnuAloHSej lT8aQC5EXYk9jdVqGKXeYEfrgtS rALTgY2IwdeAqSDOsETUaPVjlMp JrVQPws1x0cKP3aBWjnRU9uVNcx JgbMyPtPC4vrBVpZW3nYAwvJLmj iiJix3EqIL72sGTcwpQwipKvWdZ dk2M0GABnCpGzubAtROgpNKljne LhpILyzNSbzz6rvYS6YCI3s593O R9wPAC7ppoaXvO1VrCsI28lGNMf bSK0qwShDTBwQNV0YeUoJ66bvEG mejZ1APHrFZs0VONviyTbMH1aPC KwAKOyjCYnlM3pNEEoBNKtq4Jut ssawc2tqqKTgJMedmzxuAAyHN0n FHsvOwFys2WywU3cgMD3XKYxW8w sjwZtEAHydMTuYIEtWIB7XBQqLF W9TTWeSvMpwENfmvUfOh3mJEwyY E71OUvhPG63RDNhVGFsf7OyP8Ro geOrfP0lmtBJiWWddgyzsZMtZF3 rOUwpSzXxqiPvGIPfLuJiZX7dJD 0mJWE6czAgNV99ICTlSNRiYLH4K zWcW35dyZ5onYWkE6PyTKLlv0Wv A4JloyZjbNexCGZheHGrBlOaM82 pgV7xJXqznBO0KCVqHAOxycNLRf xwUJXlKFiJoDDux1E7NBUpq7MoM iSsUYIqHmZ6fXNuaJLxw5LarHQc pGQmmMMdgBotXNNyvkG8hfUrGLL hAZU5v9w9QUGfATCog5NiyLd1SG EtA0dnIT4bPYpeIQTyz2B2FPDtD HmyWFGgmgxweMc1UTQaE8Vkq51z YJPksp6kALYfOYvczI3fQvXiFCJ rutXpuBDzCF30pWZzkTfrOE9xPJ ciHVWpnPMnGJ37ySTsabSeLxEwa QtoZHEcnVUsVG4jB5UmfXkaxpTt wuQ3CKEmLMTztRibgq74ZG6ggW1 vK3NfuT40lBz8TTotuJ4op9utaj 44tllcPh0jBWsjbRCbv2B7bMRbX IDek4J9KEDoPaEkPOGetxLdqB5y PRDpbt15B3dcfAUpUT3qKe4vITr uJ5BedNItcSEpi0NyALDaBTSvBA VudGlmaWVkLlx+ACQyC1Bbz22do unda7BkiGuaFOXrmAqrLTafkcId zQPvLPYuqlZ9CFYeBQXjtBqhmv3 7KR1tMVYupoYhTAYvKDYaPBKqpT Aoh6HdPqKeWV2fNOpvJKZrs7D8W JFnFZEeQAUkGW4qcnSjZZYmg3gv bGVzIGFyZSBlbnRpcmVseSBzdWJ krRR7ZWPfYIXbvbDZVlfmKGGaCD hZofqxJ33vCCzuqSPqYN4BDbn5A TogTGVmdFxwYXIgDQpCbGFjazog ShidoCOkzOAnYW1QKBZetaKFSbC rP1Zyr08cK99gQXuhmEGnWR6KPp SaFzK4LOGmU7b7TSVolPzpZLafk dDctDVpQFJzgLOnbZK7OLShf6Dm mFDfaTuerRk0UZBns15wdJJjnNp rRDqsbV5fKKcluKEoEIOrbdKDZo F5EPCgYLD8UVmdEiTwp5EhjE3wv UP0VKBcE0sdQSC2Kk6elQJvLICu BFI3PV54aWDcbWgcKjXxaLNwgf2 3nN5jzAP3idSfaJJ5ZUimdXLjAG 5GRtZrHKqkNjaizLHkZP2dLYrpO vCpxdMbVOJjFjWhYL2lAL0qetkd gbdwBJ2kWjXjLVhtHTNcSQhMQJI 7BSGhH3j8KWEbTLgbgFUiD4rpGW QeNBBhRV5iyDD0fADvQCJxS0Ria 25zXHBhciANCkIgMTMtQiAxNDog CQJchJTuePY6PY6itzexhiuygXB yaGAoPCfinMmitmMzQYP7qM1np9 blPJHgUIlNOZR4MVNkZJD1AWJeM 7t3PVZvFDBtUWQfPxHkNBVtJWPs jT9fXYHxdnWbygHjD2CmJSNrc1N gaHgczmCpqJXqJM3QEe8zLm7HSE N8AuWDYWM5UINzZFGbSZUiDyBiO AWvDUHmnJ1uEHVsatIgtxSxR2Wm CJYmt6HrsNhsoyPgfKAmMD0DXyN 8PsFQqp2omNM6PEcol1abF4NsDZ pwCALdMOgXHRSaHsPEew3vlYN5A Cdea8gbN6ViQlzjPGUiRVtBCUXz HuRGiw6efVB3FQpmd8hmN5FcR7y fOOUyWZqNNCAmPyCEdu1djEA4NA cpo2okJ2BjHJYccDxkqPLnbICvA IzoafRgBpRzKboaXTOuq6HbmNRs IHNsaWNlIDQgbGVmdCBzaWRlXHB jswNEElUxAlG5IORyj9B6HNSfET IqcUqbJJD3MHRmM3q9LQLrBXDra FFwVL4KCzLuCJzuOLZbe4YtlZZl IHNsaWNlIDUgbGVmdCBzaWRlXHB bhdQKQtYvXgB8KQAow2N9OONpMC UnaPrdEFY9VUYuL4x4CZFzEJObc LExXY5QOwZrNvqoASJsj6KanQSm WURchADmYNUdMKmzIfZuh7tqEZh dLALcXRoZPAU9MaCYwq9mjCC1RS ccy3ooH8UxAkXocMcnqGDbhIIfL IDqluAGGzDjBpi3JHMqp6R9SBSa BKHfhYkeLLL1HNgtFbZwr4ahZDI jhQKuCI1BWwEkTHmpKMSrk5ZbwI TaVEDnaTEtSAbrsGNpEM7BBePoF WymKZFtu1BavRPlRPDjiEKzGMrg uIGrVL3PG7ivtFZaMD0EEWFtqhT NClxjZjBcZnMyMiANClxwbGFpbl omtQgvSpBkvEJlWsYwnTfdvL42Y IJqtYHnTIL5WX2vPUMnjjhlVZGp WMTjJKG6ERdgfP99iQDhOLJdLGG mpXKjqZ1Dv0zvJZNaqVGbNZY2ZW inrIUlYTBnTSStHTsgDdShN1VIU GJpUsZ4BZR9LtRdWMn9XAxpY5BP TCQjUSY6PPH2VOHyWgD5KGy3IKI WEh3yXiL1YwNlMSW6CZL3XXo5UW xcdCAyIFxcZiBBcmlhbCBcXGZsI SersrG6STJhRMJsoVrguF7rJc3r CJfqzRarOx5gJV6gsHEvDF5ZEXL unTDEUNB9CP8aAVRZMvgfpFHpXT LdpYugKPjzhJ8gUZ7WZMx0voZmC NUzEmWhWlEgEAc6GAVdAcAoe3qx oVJfDCltGDU6nYXaRPFfAEDdWLF vZC72ANhDSHJddqOgEKixwMNrjA NhbCByZWNvcmQgbnVtYmVyIGFuZ DFpkyndtJMhxZScaqfjEVq7bUZm LC6rTFWwSRpkEPWmJy31RNjsIt8 9UNzkPZ5dMJUiBSgxisCnsYpzkp War0Y3lW2xBS1tWVEmmZSwn9Muq Piwc5IcObRAlRVqr4CoP3yvBD0c lCXra1ZwkPPghMluf6AliEvxgmE mODYgLDKmsqWdvRQmRJSbXCV4DR QjHOB4VUMmBhIwkTBlRMV2hFMsx U0faBDij2AmFaVyYCvzKEYhEBVc tDYhIWsoJMWmbByrDBs0DRG0Wi5 nlGBlGE7hsXosAUHnvFdvUJVVNT I6bG6qMRBhGTS0KNrekgHwGiKzY jC0POKejIwgrKlcvi3uPDrtSxai KOG8PMYhqTwyZMGRMl0CVDamWrP uEXhsKGGrHM6sSPHxMQNyqTVyGP NvecZEXeFUUMsteOlinT0eLAUuK 43fw5YBq3AcRBNdAHlqy8avoSoi f9FuhYDzQBwdPBNosWSvGTpvyQ6 tOkFfy6xcdCs4AMmdxjR8LBYqso 2BNxpyNqsgyEght6QswYTzIUxrJ WZfUPSsGWqrKQPfPX4KHjSaRWL7 VMRuZPYhQTv3LXd3HJ6NGkImHVO dVEnrCTOsSBMkVNi6WTyfEW6TQM JcPiIhGjP6AVS4SNZ4DSUvELErO eIwVEAoWWCuULqvDOowgSBgKE0c jAxyzyX1KPDaHYsiNOGnIZk0qIL dOM9mHHXlXMMxvsBQNgjhkMddJs VzdERvYzEgDQpcbHRycGFyXGxpb jBccmluMCANClxsdHJjaFxmczIw QCBlY8GgmxVuWZSsCHAlDUbfGlF dDKKbs1o6eGK4sFEvvWE2gYBcnL nhDxCvCG5ynXCtDI5qBFhnBDtun lUgz5ImVE30jHPmybOpthFkHkhn KpBydWAjcwpcAQa3lPOuRS5hRBH mGOsjVZJbCD1cSPluLi1nJKnmQT 7nOEFtZMtrsgBfoKdddaJlq9J6a E5gBB2aACDyaGJco2HclJwcs1Iq AbNScTVsl3MvN5pvHL9mxFCro5B rkHOsmWxks9JrqDfwamEsSPJxIB YlouNaeXWoBYCyjLP5NHo6aUZbA U8nSTOwUBLphnudjzeiNI21RMYy MhYakT3kCKPaHGLiaPIkxV7zhxW sojVgseNjuwZziXUdjUAqfXJ5FQ KdMBsoqyQuETrkxiCaN4YryEiaj aTih0CvRdlgwY9tTACfVjMfJFss mVKtwKRgzE8knSZqp0MjGEqkdxD cLIU2YDNobN27KFY2VAb1rFRsEQ 2iMNHcyAvmRQMXOh7BSOaeIHNkz G7apDHtm1LaIKDgfOVbL3GkDFrt xZ1lFUZ7RCF1LhWOAA5lbG3iGTX ys0Ddi6NsD6dgWS2tvLBeXA7ZI4 cNClxwbGFpblxlcGljTmVzdERvY mZopLbobP23FYIczQDtNAB5RV5f LMYshnciNALnRDWsWPN8VEknfM8 0zQEfUFRkFTYuzKPllM4TOLQjJU N6QOxngT62eWPtFR2TKVWlIBN5P XSgzGCuUPG7EV4fwN7EiP== MICROSCOPIC o5ofaZNsNNZjdPA6SxNsKAMfk7b DESCRIPTION (test mh0JlkQKsiJXrHFruxAOadnZulu code = 3371) 15qYU0eT49FY6dIFNcVoZ2ZLJip xL6Iji9QKYjNSZjqHSjD915q3tm c2thfnHqgFM8cSrdGKNtsvduFsM 0FDpmAITmhdkwOWe1JAhlKGIvxY I6EFTsnVSnJ5LiWFZaHP8xmjv5C HJ7STgjNOYpCtA9DGYskWRoJFVl bJgpQCdat479IQK2IpApFRJuajN xnTrfkD6kVtUsZTTKHMDrPIIdvd Unyo9yTI5iuOGloX== Gross assessment [facility] was performed at [facility], Department of (test code = 2777) Pathology, [address] [place] [address], Technical component [facility] was performed at [facility], Department of (test code = 2778) Pathology, [address] [place] [address], Professional [facility] component was [facility] Department of performed at (test Pathology[address] code = 2779) [place] [address], [id number] 16:45:39 Test Item Value Reference Range Interpretation Comments Case Report (test Surgical Pathology Report code = 104) Case: [id number] Authorizing Provider: Robetro العراقي MD Collected: 12/01/2021 10:38 AM Ordering Location: [facility] Received: 12/01/2021 03:08 PM SERVICES Pathologist: Svitlana Casey MD Specimens: A) - Lymph Node, Periprostatic lymph nodes B) - Prostate, Prostate and seminal vesicles C) - Lymph Node, Right pelvic lymph node D) - Lymph Node, Left pelvic lymph node DIAGNOSIS (test i9pnqKTnRWVie5usYVEboPUtHgK code = 3220) wMzNcZnRuYmpcdWMxIHtccnRmMV xlcGljOTYwMlxhbnNpXHNwbHRwZ 0KwhurpYQmyAC2hFF1yjCqajOLp uZGbXECxZxRhx7uic085oPAez6a hHBKCnygzrAm6oGadF26yl5R4Eg ydA72afJPhVTZ0YSLlMRXxrKIhS MEbJYU1ZDYyxYDsU7yjUVWfQJ1t sxriEFlrPCqjHBHbbUC9MXFpxQX wQ4BxOEDfQBeaVNAfnwp4AvKjId 9vdGVyeTcyMFxwYXJkXHBsYWluX YXmPuNbLY5hEEdPLHzrGh0XLCfd HYXPPECWP7EWDUUPMxevLHcRYBH LU09pmSWrJXKpXiNyPqKHOLrXHU RZVcNLLYGEIT1TBFRGSIKFSNFry SVxADDnPgJgPx0rESmRIMaJYWJq WZuRE3MSTEgHRA2PAQHCMHBgUKB uqcuaSIArFTEmbbATDwICLc6UQU DOPLvpNe7GG1VLLmCQC6LIQ9SRP EQNHCQEOm5YI55UNYOpVqAYSAKV QFQMBm5WBKDARIHBB83DWcgtWUM hqDc6ZpJzwXhwNwDoDM5BEIKQS0 UBQdJHKh2ASKmcR6nYPNECIlCGA 81EZKXpSgB6RyEcO8EEFSJgT8CI KWThBfddGZ3HQ9RRQOXXMvLFBcZ EXHBhclxsaTBcbGluMCAgICAgIC UzFQLnOOUmLMIIZyzLY0ZWTB9WZ mdUExBhHjAKVWMNAkPhIu1NGHOP WB5XVUIsskc5SODuHHKMOYKXV77 WQX2TIVFykddpNBLiugqkQNAzIV AgIFNFTUlOQUwgVkVTSUNMRVMsI BFSJh9QYAIdZEZSBVIRUJMfTTDR SJOBP2DEICvJKKZKDGuQMHhyLGP SU3OYIXEPWZ5MDJrgkPGlZUQqDn RsUE2cVv1rLJIGNM9RO9qJUoLDK YLUVo1VIDIxGYJxxeicHFXmGIKe mlPUAqAJZY7YGDJNI5RXANXIVVz EUSTYRQuSWGQyDTKZD2qJEF5ACy oxVUHjCde2ZhKpKACTDoOQUX8CN 84sCToRVIxvVb4UIGLiHQAbUqbf iFFpLHJhcqsphSZmBR3vVTzKALk uAx6DOTnkCJKULHGQVIwUEOWpGT NTV3nSMX9PCgqbADPjMsb1NaHoE OEJBdUXLM4IQ00nLYsCOFtdZr5I QUPyRX7gEJScgMSlkMqejbCnZFi np7NnMFmvDHUdCK3lqZbsHZPxZH 9xMWHrS3plpA9vmbs4BbZrWLGrU oZ7EBPwyrJ1Jlx1MEVkUYksk2ja k7BwQDXmTYh8iCsiKvRwEQXqy4r zcyBcZmNoYXJzZXQwIEFyaWFsO3 10l8lkc0xxugQszBI6SPEySBH4Y DsjboYoinM8RCaolPDbEoY2VZph cvKePGaufvCagtKfPyi6DXOhF50 4UGS8hTrnv4wpWGF0ZTQrKVTjSm ZpAy6qhOPeV881OKUkWQLXHHIcf Yr5ZEIaldKriiAhsPOXh159S599 a2okGTQurjXcaKwIkmhpa2osC47 9XHBhcGVydzEyMjQwXHBhcGVyaD A1ZEHfBP9yednbHBszJUgkJSWxg gM3QKJcoBJyT2UpFXNvMN6uhmwr ZCS0DBvfTBPeRYG1XqTgRWXzt0W gfcj3XcNwla3kwd29DHM3c2BvvX paJOA2ERB9JgTlEd8qeDLxWHCjY O8oUsOrfVMvIIBpzp57mGqaIYfd CGZ7QYRkflVun2Plj6rtYrJvggH fH3ncH4UcCPDaRKOnYAQwKjPxjr Cio0Yuo0GhzROnqSl4j6ikKUXpY XXtrWqtu7ovAQJ7TLEexTYwF4sa sE0oUEWiQN4nunjwd7zwWMlaVUb fBZHghUR8dbC6EAEcwUJlK7LikW 4dHWLwAAjmOZYovwi7ZkAlHi3si GVyeTcyMFxzYmtwYWdlXHBnbmNv bnRccGduZGVjXHBsYWluXHBsYWl uXGYwXGZzMjRccWxcbGFuZzEwMz NcaGljaFxmMVxkYmNoXGYxXGxvY 4loElEtRxYeMcv4ZIPyrLPgBCEd Dow6RMJcpOVrUNPMjIqupW3gHFU veYbywV9xrNW3EMXsxuIuqLKOtP 5pTKZSbI1fUeD7SLPyLpq0SYL3Q jFccGFyfX0= COMMENT (test code a9etvBLkNFBqnJL3CfVjKPCjo2x = 3359) qc6GzjWAbzNEcTAdjzLJnphAoaw 16vAH1yS55HD1kAOGdBrX3GDQsa vC4Ale5UVHsJPJubQNrR876t9ie n1pgwpYgtXB7iBpkEVVdmignUhC 1CGkhXAEphbfuLYs0UAtmXWCsqF W0BKLwwAQtN5GoNVQjUN5xcyy3Z LM8ZGkcAXIzZeA6FTKpfNPaREKz mBejJTzkt821HFT5JcHlOEAykeE cuWwpxM0uOcNdCDSHXEZ9mR1voc TaXdI1cQDguGAtr9OvuTWplQV8E BAnLWXjy2IkoxYiqd1tQTAjljHd q75aefAhmRd4JOyjG2A4YYYfcT7 fcVtzAEOiLGskGNThQRYxk60wuj NwvDJrt7P9zHIvhLKmxU6nFVKxQ SGpfrF6sDXlhwnrzSDnXV8lVVks AhFvFN19UUMkw8TuyRFgd4OnaOR gdGhhdCBtZWFzdXJlcyAxNyBtbS E1sQDyEJWzKH04VIBcyBvgP3wuG MQjpyMqR86uUVHlCoMYvJXdo54m YLDjr1JfMXHxRTQuAGJ0HkTiJXC vjd74uM2ifLImlYNjLLEut8QbiD ldYCF8pQ8tVLpsUWseFPYyc31gv RO4rLKylqB0WiFxLVugXRK0rD6h IGlzIGNvbmZpbmVkIHRvIHRoZSB ivy1mxGZ9EIoqnh0tKPa9khGnnC Iwe4ZmvMfuBIJ2lPHak2ksbkPhs dFqCREbrVmnkYHxOpRjYGGysE1b iDJogGZxgeDtw0uxalRxgkMvBKM zdNsbpWTkYJFpsSBedy9gdDakkG cqreHiB8GgTONeyO01NMQdc43hj QJwc8Phng2xVCTuDLAlLW1lspKc MWHvh1zhuPNcCIIlVOZ6vyIquVQ ys6BuhANpYBNmDOM0qZUwk4LqA3 quKZaxwKRwE0lntoBssdDqxcPwP TLkxlJqBs0wIZY4uY7yEayiYAP0 SYNOPTIC REPORT PROSTATE GLAND: Radical (test code = 5765) ProstatectomyPROSTATE GLAND: RADICAL PROSTATECTOMY - All Mtek[employer] Edition - Protocol posted: 02/10/2021 SPECIMEN Procedure: Radical prostatectomy Prostate Size: Prostate Weight (Grams): 80 g Prostate Greatest Dimension (Centimeters): 5.5 cm Additional Prostate Dimension (Centimeters): 5.1 cm Additional Prostate Dimension (Centimeters): 4 cm TUMOR Histologic Type: Acinar adenocarcinoma Histologic Grade: Grade: Grade group 2 ([place] Score 3 + 4 = 7) Minor Tertiary Pattern 5 (less than 5%): Not applicable Percentage of Pattern 4: 6 - 10% Intraductal Carcinoma (IDC): Not identified Cribriform Glands: Not identified Treatment Effect: No known presurgical therapy TUMOR QUANTITATION: Estimated Percentage of Prostate Involved by Tumor: 1 - 5% Greatest Dimension of Dominant Nodule (Millimeters): 17 mm Location of Dominant Nodule: Right and left anterior Extraprostatic Extension (EPE): Not identified Urinary Bladder Neck Invasion: Not identified Seminal Vesicle Invasion: Not identified Lymphovascular Invasion: Not Identified Perineural Invasion: Present MARGINS Margin Status: All margins negative for invasive carcinoma REGIONAL LYMPH NODES Regional Lymph Node Status: : All regional lymph nodes negative for tumor Number of Lymph Nodes Examined: 4 DISTANT METASTASIS PATHOLOGIC STAGE CLASSIFICATION (pTNM, AJCC 8th Edition) Reporting of pT, pN, and (when applicable) pM categories is based on information available to the pathologist at the time the report is issued. As per the AJCC (Chapter 1, 8th Ed.) it is the managing physician s responsibility to establish the final pathologic stage based upon all pertinent information, including but potentially not limited to this pathology report. Primary Tumor (pT): pT2 pN Category: pN0 ADDITIONAL FINDINGS Additional Findings: High-grade prostatic intraepithelial neoplasia (PIN) Additional Findings: Atypical adenomatous hyperplasia (adenosis) Additional Findings: Nodular prostatic hyperplasia CPT Code(s) (test o0wveWMuGDKnjRH2XfFeCHEyo8z code = 3357) tg9VrxPVchEJhVSohuLGrjmDpid 21tLG7nR43TY4gJEBkVpF9ARZdu kI8Kms9QWIfTULboENnF585u1lz j9zqdzFjjXZ8uQijAEIjjectXxL 0ZNqbHYJjnrmfHCh3XNtjLVToiV D9YSIbeTZaI7HaVMXnQE8yszc7I MV0JFkcDVXsEmO5KZXcrTDaVMCu aIncYAdlz105JLE4DeZpOYKpdoX bfOyamM6kJvEjQTU6UKEtNNX0XW guPECqQTcfTZhiuPMceJNdWIn4K hW0RJJrnc6= CLINICAL HISTORY q4enxYMnARUpjVQ2FaThJRGpv6j (test code = 3356) mr8LckFQbkTIwCEsykCPugjYnft 96uLQ3rV11HT8dYNIfQwO5LYEow jK2Wxp1LXFiOTBuaPRpZ116j8cp q7nwzfFawRR2pAveINYglhcvTzP 6KXtnCREjmxisHEn6HOmvCDRguN C9BUPyxFHrC0PwNEHdMR0zscu0N JL7SMtwDCKeJhF8COYyhNSgLVYa bCusLXkwe389FIF7QzEiUEEbpsM cwReevN1sZrDaRCJIix4mzEA9DK VkOV3uBZLtbJHnsX== SPECIMEN SOURCE w6mftITnFIIxbQC9OgXcQOPwb5i (test code = 3377) bu2VytKBhlJNrELhoyTOonmIdej 97lWC0uY78IL3aDEJfWgV9UBIbx rH1Aru3GPJeKZSkgNPdA267v7mf u9vtilMoyGT3xIokLVGhnwrmFoQ 3MYhyICAtemflVEn4TQpiTJGdpT C4FQDhcXReD7UxBKZhJX9qehb7F BF0VWndFBLuTsG7DUFsxJIeAMLv wRhyVFhac988RHP5DhIpMKQnzrU ocVmsvE4bHdTnAUAQYrIKjT6cvC PTk5GlFDVPPQUlaADxq2ZljMlyB NVjttNOBwZBpr8bxDD8NUCtjzPc Q6GqlX1nvOMGLOOiU9tou2wdXBM qRa5xICgnjLmmJq5jCLleLbclhF PiJHOioofaSUCgqxOMFvCVfM6up HZAc4GtOKFNXCZ8XGForAWmX2uv YXJ9 GROSS DESCRIPTION c0xojYBmNGXbtSLHNDFiM5ieroQ (test code = eHPKoiFRrN6VykjpjIQvwET8cBN [id number]) 5rxBhtnOOvtOLmKK6JIYMvMfSuL HBhcGVydzEyMjQwXHBhcGVyaDE1 DMUvSZ6lrrjaFUptWAdlRXOstwP 1ZLMfjSTdN6LqTTSvAF8okinaQG P3MPpngZ3yjzNQXkvwKm4fpSJhi HtcZjFcZmNoYXJzZXQwXGZuaWwg SEBtEZf9pR4QWftjC82bm1J7Pph 9XCSrZXWnG3WqUR6oMMJrzPFdO6 9ZHbuyHNB3VDUXLsrbZVXfUS3Zz 1kpTBVglYRgHHR5GIpwvOIjLVVv DITwJWk2ACRzQQxnaCQjFJ5mjRi qBietqWxgj4JivMYaKTcmIHPvTU WeQRbfEFOgPC5KReOpCZH7NDTaP RVeVIr7TNa2GU7RJcIqIPQuKOta Sui2NGJsPEw5HRunRK3DBLVfBiT mWvGkWGV7WLM5BAXrWDYwPcGyRN RaGNHnPFoyANgyaLZvSU0koCwdu RWvouMUEkNUrR7ttPEHb7WzAzps AIEjXJyfJJApK57uh2TVx3CbNJ3 WNCx9izSvubtgeJ0fMUWybnMvCP vujJMwG1sfNrJdXHEIBUYyuOPjW CBmcmVzaCBsYWJlbGVkIHdpdGgg bPphULRpkBolqtGfZ6T9ddNyML9 qUHFxLIDtE8IdSYSwP69oMHNiqZ 1vBIFpUK1wUEMgIMYcnAIih9Ben XxgTIs3qQGfWN6vOTYoEjXrpqFs TDJyPYN6UWWkRUQ9LYKxXEPmjTQ jQ5zuSTpqhYIwn6OoDmMnCZktg9 MyPNUlr2Q6XIPgzxXfaUBblGJrY IHJzMJto9GxK9fqTA1qjEUia1Rb rYYlsXxpm0BcsAuipyPbZYGtFOD 0kNFfWQXdukXlDNTsj7GfLoieLQ OqcCE5TFa5hPPeCY1vKPMiuDLph 8SqtS9cWSThRAQ0BAScPOD0KIFk LbYqoB9pXLInEUKfjMJyjO0uoaY wjhZalaWzfuEytYHeeMFfrRA5GV PxBJajrtPhRQsnwkHgS3KckTpmk cPlm5IrOzrdzH4uYCFmNuApXWKn n2EuEgtzPNrlyUFyvHIwdK0vtIK ko7CqCAcfqmEnGDUiVFA5WKQydD KjhoEpsvAqOyDvsDHpcD2bvvbpA MIgYMcMLh5UKIKaZFllBHIqyYUX VCB2BR5yGOoupIDytptkGJOzI5M oV3BerjAfdLZbGSZkpeZhq0ghLP S6DRGmfZXbyLMwAqXaKsgyGGC7J Bl0QTdeVPNsM6YpZ5CeLMqkVEK3 MTAwMiBcXGRiICBPVlIgIiAzNTg lAhp9QmC4HVv6NSNVZgBkYtDuCf b7JoN7TgHhSVp3RRz1YIhYAxG4P Vu6GNHzThUdKMKgLvorVIs1SWOo SJnbNQCdjSTlNKpuPkffBGtlW96 fEfQcVfdpbMJsegUEVaJCqg9qeI Y3MX1kpZUqKI0PYYJndKMUZNL1A E3zIGHDRinlbEZtXHYwfIszLBjy qX3gPT9ZYLm7wxEbFWEvKCxenzK rDJZvB6JjcbWuQUOsYPJdJKaySb VkHXXle3x4tXV9gHSotTE2cYTpv KdcKfVeGT2hbEFjAH7mRWxtTAzm qaDnz6DkVT30jFThhpDpqnTdByV vo6A3NRUpMbDvbfGgJCfgWEggxm YmgIQwwVKvqb0ljPU8ONX6e156Q C6mNCG3jiyfQsZ6TgWzY10eOYRe gCB2wbKeWKXzFBE4QnBnP27jvLO zcwM9KGMlOFo1JLCeqlJlJF1xDR ZjKKVucZDjlQ5sHHEtQDPyp9Byj yylwu9vhnBEfTZelarrpIYjTD4c PUvgJkZtc6YuqX2dbMB6TWWgN5v lrcWzULUffJAtHOFnIQP0VACrMY T9PQFeOdCwzWUjkyVtHf0tGHyuM O14HIxuWK25YBFuHGAbj3QsU8Hr ecZqoR7xlkBJuJNbetlrvQEnCL8 dGLxbMfLhkpGeJDVqOkMzUD0mFB 4qVFO1zmIxBU08GYNjKCEnRBZ7K nZvE07vnB9qgBSiH0NpJOKsc8Zn C1JjuwMsaOsjSFZqgTJgNvErL65 brR8vWRqjrWM8SHVaAZUywlFSLl yhJAEqWSiCwVKjp6L5RQBxr3FhU vBiSNKdYwW0dSEzmSQkk4UpvGRu hRYtgCBjnAbzEOCbeyM3yrUvLWY bMKJ6e2y0IOAsIDKll4ZdmBr9KO VcH2wmYR3aIRokXCAqp3E2RAFrW BugFGJlmwsxcEe6DWJlC1Kog21m OEIqst8xPUIrYDbecC6sOaIaQNT momXliMRbSG89qIDrvZukJF7zDD fyYWXjtIAvEK16dGNhjlTeLpUsp EhlUNZwaWMtJT8hM4WsoVsfhgBv ezW8MGKwYIJvnPupgw81HX2pkJ6 aT8AnvD15eKg9POuccR1uy4lmhj 53ujprUv5fXXcujBEwr3B5iUKaA KCvn9A8CCEdGiCkEIDjasTrrS1i KDOpkm19S4vprRUlPP7wEz0wSTb qJ2JqjPJgmORnw7CjWBUcGHZtPU VudGlmaWVkLlx+HWWaA6Wlv39am axjw8EruKdgQLXfwAiaKKjdjeFp qMErGOIpqrO6NLKySNBpoSoekc9 3DS2rGQVtdmAsZCLhINQhOHFzqP Opg7DvRoNfFM7zFUkkJSBsf1T6Z KBbFMDzBUYtXW6ihnHcWPXzl0jy bGVzIGFyZSBlbnRpcmVseSBzdWJ rfMY6DTUlIWKrifWDBzkqKROrZQ xDmajuL06cVQxuyDIeXV7KAhw3J TogTGVmdFxwYXIgDQpCbGFjazog JvplbVSkoCUhPM2QYTSwgjUYTdB bQ1Zac05bK14qGZgnzTZrYG4SMw PsZbX3BRNuO9x0DDFklRltYTksp qJiyVQiYSXmvSXuhHJ3UDGng7Tp fTRosLnhdZa4SJFie62rhDUwjTt rFRfurF2aEKbuhOIoTKAysuMMYg M9PNNiYCD9BQboZqVng9EwoV1pr CR1QOVeV5nhCFW0Bw1suWNtODMc IPM9RQ19aDPmtNzmUgHvqVZxzj6 0hC8njDO6wlHjcVT5OGanwYRpIQ 1CNzVjLCjtBtmraKXdTV3eONxpJ sGlsdQdMQWkXyYmBW2kKN9upgnv zlkzWD4kXpOoWEphGWJiDCfWIRB 8PLJkU1m8GWLlQFfjnVKiQ7qzPI VxBWPpWO0znWZ2aBFkJIRbX6Qyd 25zXHBhciANCkIgMTMtQiAxNDog DGRneLAqvNH6GW3altzsnsizjFI pgKJnTDbffNgadvPsCEA3nH3mx1 tqJEMoWMhSGLI9FLNxCAL3GJWwF 2y1RJYtAJUzOGUzQlJkRKQaEMBv eG3bECNgtuMkaaOzO1FyRHFht4F xtBhjbkVudHJzRJ1FVl3vVu1TBG P2ZzBKNZP6VXZcFIDnZHHmWmJlS XBqVLKzxJ7dCFDtnxVrjjFkZ9Qz GOYvg2EdlVrsxiOqeSEwHI8SHjH 5WfGAth4bjHQ8HGshy5rqO6YdQQ bwMILjUPpBTZTsOcTAgb5fxRG0X Yawv5fiI9LcFezcJKRtUZuIQHEs SgZWwb1thAI0NGltg2kaW7KtD4k kMPNaWSrGRYLzHcVIxq1ilFX6WG tft4oeY7IyFADqlYcntOKhrILyI KmhbbCwQqXwQyihLFNkx9MvhCSi IHNsaWNlIDQgbGVmdCBzaWRlXHB gxeVNGbUnYcU2NDDdj6L1QCCjWY AtwVniMWR4QLXnO9o5YTPpLRQac QUzDE8QNrYfDRrkOEVer7MqyCFb IHNsaWNlIDUgbGVmdCBzaWRlXHB kuqHQMfDnOfX1VFDey6J0AYEmSD GzoOnqJXC4XWFzT2m1RBEaGZUdu BOdCF1NRlCpQcuaRLHqj2KzrQUg SYZsiKJaYTDpXWgiJfYcf6rmETx aOCYzOUrQPGI7BoDVrr0anRY7DW ezg3mxV5SvYjSogJkndIPnmEWkB GGybsVPQoIyAxp5FFDlw1J4VPDe AMKulQbbKGC8PKkdWiUki3jtNBS ylGJgLO7SBfGbEUzyKJQmy8StkU JtCCWtyLOqHIhpvPZlJS2ZCiLoD UwoZFIpv8NxoGNfOSNwyPExKBpb tUJaUZ0LS9pnaJXhIU3FIMAderP NClxjZjBcZnMyMiANClxwbGFpbl pkiUkeVkRrdWIaCkOslIqafG80Y ZIudGVuXXT8FH7fLEXsswwbRLHp PEAkRFD2EHmjqL48cDLkDIDcAWN yzJNctE6Tx8hjWYYdzDZoAGC9OM gvsXHdQPRwRYJtQMjjAsDyP0GYR TUyZaX9OKD6PyPwBBn3QRjaW6IV XPUsKED3DAK5BHNgIfI6FDj6ISD UWn1tIuD3BxNlDWE1ISN0JZl0ZR xcdCAyIFxcZiBBcmlhbCBcXGZsI SuvfyX1LWQfLKPagLhmgL4rJj4t TAnwhIgzZj3uLX1siHLsHD7UIHP wlWHDHYM7IF3qURDQBjbpbNWuDF WqqFosAFcmnT4hRU9KVFj4ijWsM AHuDeNuZeOwJOw7KIQdBuTpl0yk fSGfQCetWLL5eFIyNBBuXALzMQO jKQ19JVhXQNXxwrEvKXhwsPNgeS NhbCByZWNvcmQgbnVtYmVyIGFuZ DUkmffysRHjrUXhvrjlHGg6rHRt EQ3tKYTsLEgdHDBhYx22ABnbWz3 0RHdyWL2pKXPsQYobjsGsoHkykn Wrw2O0lF4dZY9wUQUznRChs3Mdv Vhwo7UsNwAUpEOqh6LdA4wbXU6x uAQso3TpxVTgfNeqa0AqpGdpuiY pCPCbLDStecKwvRAmTVIcWPQ0MY MiRAV4ENVgNyZzmNGmGHM9gLEtw W9huICkw9JrVsWxBCgaDCRxVDXk mPUgVPkkDRSxsFzgRWd2JFJ3Zf4 viEQjHP4akXavUKDwaDrtOVSELG P6bU9fDTZqIXH8BTvoiqKqXfQxA iU1WBAfhGijoMmigq7pOLkwBfgi XTP7YCCfvRreVOXCDv4PDAyiThD aKKnfWRAoKP9aYFAoENOykJDiDQ OdobRHDdCKKWysvGzzwC9hIUCsB 31qg6NUx8MnANEfYZnuz6llvNmy j1DpoWWgKCbhEMTjxJJqZSzckI5 vKyGwu2wknTh8JMcbhxX8PFSwsl 9TKbizDupjgAtkb1HzwMBdDLrvC ABoJTHbMOysIDJyNK6QWrJlOXX0 OGUfUZWmMEk6PVo7UP1TCkBpMBK oIKqrJUYvIVPkTMc7XMeuBB7IKN ZeCvBfYfZ8NVJ8IDT3JNIgQTSmV eClBHAiDPBiRYrjNQocoVXmEB4x oCrhrgZ6SAArJBbhVIJxZYt3nUH dZQ6vKVMcZDRdkbCWMiujmUiaRk VzdERvYzEgDQpcbHRycGFyXGxpb jBccmluMCANClxsdHJjaFxmczIw MNXaC4DawwPeJJKiQNWlXPyhTmL jUXEsd6f3aIJ8dCJrnGW8nMKajK edAnNtMI7upAWtUQ2gGYtxRJyem jMen6MqYJ74jTErbnHbnuIhMaig LtLakSYqblbkHJq2wCDaMT3gJKN gCJohBZYwCE0gNYeoZm6qGDmaOJ 1wHSIyJAxrcfTtySnrcjCyd2L4g V9mKA0sUNNemOVxc1ZiuUmuf1Yr RkIPzDUqx7GfZ2qtUA9uaVWbd4S kjIDrcXapd4EzeGdemdIdPPFhSQ EpsaBmnSXkYLBgrII9GXg9vBSnE D0lITBtUYHywzuulntwUL76ZCTp FwTdsF8oWDJaJWXxpKFoaP2yiwG afsGgrzNxohDzcGPhxVSpzLU2MB VtFKkyneCwBYuqavGyA8KnuBiio pYeb1BjTohslK3zRCBpJdDrVZty bQXuqTMqpX5yzFXeb0GzCHxqcsW lHKX3ULJipO89ZIO1ERf4pNPaIH 4dVZHutVscVRMVHq1RWBnlKKTvi J6gjIEtu8HdILJlfUWrG7ZtRTkk sE6aFMO6MLT7KuRXYY7hfP0zEKX vq7Hyu8NoC3jrSA0gnGOlQC9VW4 cNClxwbGFpblxlcGljTmVzdERvY pCaxZrohM57ZAIflDEbEZL0PK2l IIXdjrhfQAFuMWZoLUN8KGmfjD8 8oFMgYPYfLLLodJHeoD0VZIKwYN T1PKtydB38bHXcBO4RWSPmZQW7I YEksYObFAN1ON6psL0PrP== MICROSCOPIC a3jkmIEwAZQetEF7NwEySMSwl2b DESCRIPTION (test eq5BsuLIenZXyBJyhwQHssfFzvi code = 3371) 31fYK2aY58NP6qDHSpEtK6DOXoa sR1Lnz1GAOcJQZkrSKqL910k1ur c4ywznTrsJY5pBkrXFZrzjumArY 5JUohSJUndbamQBl1UMajKVSimH X2VKNueHPvX6SyJUFxOD9iyoo4F MD5HIhxRFToIjC9MDCfoTEhUEYj zQppSSzou329OUI6OkVoPAAyixR nbQosqW6zHvFlTYRTYJPxVRDlwz Mghj8oQL0njPOoyU== Gross assessment [facility] was performed at [facility] Department of (test code = 2777) Pathology, [address] [place] [address], Technical component [facility] was performed at [facility] Department of (test code = 2778) Pathology, [address] [place] [address], Professional [facility] component was [facility] Department of performed at (test Pathology, [address] [place] [address] code = [address] [address], [facility] [id number] 16:45:39Surgical Pathology Report Case: [id number] Authorizing Provider: Roberto العراقي MD Collected: 12/01/2021 10:38 AM Ordering Location: [facility] PERIOPERATIVE Received: 12/01/2021 03:08 PM SERVICES Pathologist: Svitlana Casey MD Specimens: A) - Lymph Node, Periprostatic lymph nodes B) - Prostate, Prostate and seminal vesicles C) - Lymph Node, Right pelvic lymph node D) - Lymph Node, Left pelvic lymph nodeA. 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 LYMPH NODE, RIGHT PELVIC, EXCISION:-TWO BENIGN LYMPH NODES (0/2)D. LYMPH NODE, LEFT PELVIC, EXCISION:-TWO BENIGN LYMPH NODE(0/2) Signing Pathologist Direct Phone Line: [phone] signed by Svitlana Casey MDon 12/26/2021 at 4:45 PMSections of the prostate have adenocarcinoma predominantly located in the apex. The dominant nodule is located in the right and left anterior prostate that measures 17 mm with anoverall [place] score of Paige score 3+ 4 = 7. Approximately 10% of the tumor is Paige pattern 4. The tumor is confined to the prostate, no extra prostatic extension is identified. Perineural invasion is identified, but no lymphovascular invasion is seen. The seminal vesicles are unremarkable, andthe surgical margins are negative for tumor.PROSTATE GLAND: Radical ProstatectomyPROSTATE GLAND: RADICAL PROSTATECTOMY - All [id number] Edition - Protocol posted: 02/10/2021PECIMEN Procedure: Radical prostatectomy Prostate Size: Prostate Weight (Grams): 80 g Prostate Greatest Dimension (Centimeters): 5.5 cm Additional Prostate Dimension (Centimeters): 5.1 cm Additional Prostate Dimension (Centimeters): 4 cmTUMOR Histologic Type: Acinar adenocarcinoma Histologic Grade: Grade: Grade group 2 (Paige Score 3 + 4 = 7) Minor Tertiary Pattern 5 (less than 5%): Not applicable Percentage of Pattern 4: 6- 10% Intraductal Carcinoma (IDC): Not identified Cribriform Glands: Not identified Treatment Effect: No known presurgical therapy TUMOR QUANTITATION: Estimated Percentage of Prostate Involved by Tumor: 1 - 5% Greatest Dimension of Dominant Nodule (Millimeters): 17 mm Location of Dominant Nodule: Right and left anterior Extraprostatic Extension (EPE): Not identified Urinary Bladder Neck Invasion: Notidentified Seminal Vesicle Invasion: Not identified Lymphovascular Invasion: Not Identified Perineural Invasion: Present MARGINS Margin Status: All margins negative for invasive carcinoma REGIONAL LYMPH NODES Regional Lymph Node Status: : All regional lymph nodes negative for tumor Number of Lymph Nodes Examined: 4 DISTANT METASTASISPATHOLOGIC STAGE CLASSIFICATION (pTNM, AJCC 8th Edition) Reporting of pT, pN, and (when applicable) pM categories is based on information available to the pathologist atthe time the report is issued. As per the AJCC (Chapter 1, 8th Ed.) it is the managing physician's responsibility to establish the final pathologic stage based upon all pertinent information, includingbut potentially not limited to this pathology report. Primary Tumor (pT): pT2 pN Category: pN0 ADDITIONAL FINDINGS Additional Findings: High-grade prostatic intraepithelial neoplasia (PIN) Additional Findings: Atypical adenomatous hyperplasia (adenosis) Additional Findings: Nodular prostatic hyperplasia [id number] cancerA. Lymph Node, PeriprostaticB. Prostate and Seminal VesiclesC.Lymph Node, Right PelvicD. Lymph Node, Left PelvicA. Lymph Node.Received fresh labeled with the patient's name, medical record number and "periprostatic lymph nodes" is a 3.8 x 3.5 x 1.0 cm aggregate of 2 adipose tissue fragments. The specimen is serially sectioned and there is 1 possible fatty lymph node measuring 1.5 x 1.0 x 0.2 cm. The specimen is entirely submitted.Section code:A1: 1 possible intact lymph nodeA2-A5: Remainder of specimenCGB. Prostate.Received fresh labeled with the patient's name, medical record number and "prostate" is a 80 g radical prostatectomy measuring 5.1 cm apex to base, 5.5 cm transversely, and 4.0 cm anterior to posterior. The right and left seminal vesicles measure 3.4 x 1.9 x 1.3 cm and 3.2 x 1.5 x 0.4 cm respectively. The right and left vas deferens measure 5.5 cm and 6.0 cm in length respectively, each 0.5 cm in diameter.The outer surface of the prostate is purple-alicia to red, dusky and focally ragged. The prostate is serially sectioned from apex to base in itsentirety. The total number of slices is 9. Sections reveal a pink-alicia to chino-white, homogenous, focally nodular prostatic parenchyma throughout. No discrete masses are identified. Sectioning of the teresa inal vesicles reveal a pink-alicia, unremarkable cut surface. The prostate and seminal vesicles are entirely submitted.Ink code:Blue: LeftBlack: RightSection code:B1-B5: Right seminal vesicle submitted sequentially from proximal to distalB6-B 10: Left seminal vesicle submitted sequentially from proximal to distalB 11: Right and left vas deferens margin, en faceB12: Right apex margin, perpendicular sectionsB 13-B 14: Left apex margin, perpendicular sectionsB 15-B 16: Right bladder base margin, perpendicular crilclqvM-61-V 18: Left bladder base margin, perpendicular gxhfhgqdG28: Prostate, slice 1B 20: Prostate, slice 2B 21: Prostate, slice 3B 22: Prostate, slice 4 right sideB 23: Prostate, slice 4 leftsideB 24: Prostate, slice 5 right sideB 25: Prostate, slice 5 left sideB 26: Prostate, slice 6 rightsideB 27: Prostate, slice 6, left sideB 28: Prostate, slice 7 right sideB 29: Prostate, slice 7 leftside B 30: Prostate, slice 8B 31: Prostate, slice 9CGC. Lymph Node.Received fresh labeled with the patient's name, medical record number and "right pelvic lymph node" is a 3.5 x 2.5 x 1.0 cm irregular portion of adipose tissue. The specimen is serially sectioned to reveal a 2.0 x 1.4 x 0.6 cm fatty lymph node. The specimen is entirely submitted.Section code:C1-C2: 1 lymph node, bisectedC3-C5: Remainder of specimenCGD. Lymph Node.Received fresh labeled with the patient's name, medical record number and "left pelvic lymph node" is a 4.0 x 2.2 x 1.2 cm irregular portion of adipose tissue. The specimenis serially sectioned to reveal 3 fatty lymph nodes ranging 0.5-2.6 cm. The specimen is entirely submitted.Section code:D1: 1 intact lymph nodeD2: 1 intact lymph nodeD3-D4: 1 lymph node, bisectedD5-D7:Remainder of specimenCGA-D. Performed.[facility], Department of Pathology, [address] [place] [address], [place] [address], [facility], [facility] of [facility]ology, [address] [place] [address], [facility], Department of Pathology, [address] [place] [address], EGEUB METABOLIC [id number] 06:07:01 Test Item Value Reference Range Interpretation Comments SODIUM (BEAKER) 134 meq/L 136-145 L (test code = 381) POTASSIUM 3.4 meq/L 3.5-5.1 L (BEAKER) (test code = 379) CHLORIDE (BEAKER) 104 meq/L 98-107 (test code = 382) CO2 (BEAKER) 27 meq/L 22-29 (test code = 355) BLOOD UREA 10 mg/dL 7-21 NITROGEN (BEAKER) (test code = 354) CREATININE 0.67 mg/dL 0.57-1.25 (BEAKER) (test code = 358) GLUCOSE RANDOM 107 mg/dL 70-105 H (BEAKER) (test code = 652) CALCIUM (BEAKER) 7.8 mg/dL 8.4-10.2 L (test code = 697) EGFR (BEAKER) 96 Interpretatio n of eGFR (test code = mL/min/1.73 values Stage De scription 1092) sq m Result G1 Bree l or high >=90 G2 Mildly decreased 60-89 G3a Mildl y to moderately 45-5 9 G3b Moderately to s everely 30-44 G4 Severl y decreased 15-29 G5 Kidney failure <15Reported eGF R is based on the CKD-EPI 2021 equation that d oes not use a race coefficientEsti mated GFR is not as accur ate as Creatinine Denisse benson in predicting glom erular filtration rate . Estimated GFR is not appl icable for dialysis patien ts [employer] Supervisor ID - SHEILA [facility] W/PLT COUNT & AUTO [id number] 04:52:30 Test Item Value Reference Range Interpretation Comments WHITE BLOOD CELL COUNT (BEAKER) 9.9 K/ L 3.5-10.5 (test code = 775) RED BLOOD CELL COUNT (BEAKER) 4.04 M/ L 4.63-6.08 L (test code = 761) HEMOGLOBIN (BEAKER) (test code = 12.3 GM/DL 13.7-17.5 L 410) HEMATOCRIT (BEAKER) (test code = 36.5 % 40.1-51.0 L 411) MEAN CORPUSCULAR VOLUME (BEAKER) 90.3 fL 79.0-92.2 (test code = 753) MEAN CORPUSCULAR HEMOGLOBIN 30.4 pg 25.7-32.2 (BEAKER) (test code = 751) MEAN CORPUSCULAR HEMOGLOBIN CONC 33.7 GM/DL 32.3-36.5 (BEAKER) (test code = 752) RED CELL DISTRIBUTION WIDTH 12.6 % 11.6-14.4 (BEAKER) (test code = 412) PLATELET COUNT (BEAKER) (test 145 K/CU MM 150-450 L code = 756) MEAN PLATELET VOLUME (BEAKER) 9.7 fL 9.4-12.4 (test code = 754) NUCLEATED RED BLOOD CELLS 0 /100 WBC 0-0 (BEAKER) (test code = 413) NEUTROPHILS RELATIVE PERCENT 72 % (BEAKER) (test code = 429) LYMPHOCYTES RELATIVE PERCENT 18 % (BEAKER) (test code = 430) MONOCYTES RELATIVE PERCENT 8 % (BEAKER) (test code = 431) EOSINOPHILS RELATIVE PERCENT 1 % (BEAKER) (test code = 432) BASOPHILS RELATIVE PERCENT 0 % (BEAKER) (test code = 437) NEUTROPHILS ABSOLUTE COUNT 7.11 K/ L 1.78-5.38 H (BEAKER) (test code = 670) LYMPHOCYTES ABSOLUTE COUNT 1.80 K/ L 1.32-3.57 (BEAKER) (test code = 414) MONOCYTES ABSOLUTE COUNT (BEAKER) 0.77 K/ L 0.30-0.82 (test code = 415) EOSINOPHILS ABSOLUTE COUNT 0.14 K/ L 0.04-0.54 (BEAKER) (test code = 416) BASOPHILS ABSOLUTE COUNT (BEAKER) 0.03 K/ L 0.01-0.08 (test code = 417) IMMATURE GRANULOCYTES-RELATIVE 0 % 0-1 PERCENT (BEAKER) (test code = 2801) BASIC METABOLIC [id number] 08:04:40 Test Item Value Reference Range Interpretation Comments SODIUM (BEAKER) 137 meq/L 136-145 (test code = 381) POTASSIUM 3.7 meq/L 3.5-5.1 (BEAKER) (test code = 379) CHLORIDE (BEAKER) 106 meq/L 98-107 (test code = 382) CO2 (BEAKER) 23 meq/L 22-29 (test code = 355) BLOOD UREA 12 mg/dL 7-21 NITROGEN (BEAKER) (test code = 354) CREATININE 0.80 mg/dL 0.57-1.25 (BEAKER) (test code = 358) GLUCOSE RANDOM 132 mg/dL 70-105 H (BEAKER) (test code = 652) CALCIUM (BEAKER) 7.8 mg/dL 8.4-10.2 L (test code = 697) EGFR (BEAKER) 92 Interpretatio n of eGFR (test code = mL/min/1.73 values Stage De scription 1092) sq m Result G1 Bree l or high >=90 G2 Mildly decreased 60-89 G3a Mildl y to moderately 45-5 9 G3b Moderately to s everely 30-44 G4 Severl y decreased 15-29 G5 Kidney failure <15Reported eGF R is based on the CKD-EPI 2020 equation that d oes not use a race coefficientEsti mated GFR is not as accur ate as Creatinine Denisse marcelino in predicting glom erular filtration rate . Estimated GFR is not appl icable for dialysis patien ts [employer] Supervisor ID - ADMINCBC W/PLT COUNT & AUTO [id number] 06:20:42 Test Item Value Reference Range Interpretation Comments WHITE BLOOD CELL COUNT (BEAKER) 12.4 K/ L 3.5-10.5 H (test code = 775) RED BLOOD CELL COUNT (BEAKER) 4.30 M/ L 4.63-6.08 L (test code = 761) HEMOGLOBIN (BEAKER) (test code = 12.9 GM/DL 13.7-17.5 L 410) HEMATOCRIT (BEAKER) (test code = 39.0 % 40.1-51.0 L 411) MEAN CORPUSCULAR VOLUME (BEAKER) 90.7 fL 79.0-92.2 (test code = 753) MEAN CORPUSCULAR HEMOGLOBIN 30.0 pg 25.7-32.2 (BEAKER) (test code = 751) MEAN CORPUSCULAR HEMOGLOBIN CONC 33.1 GM/DL 32.3-36.5 (BEAKER) (test code = 752) RED CELL DISTRIBUTION WIDTH 12.6 % 11.6-14.4 (BEAKER) (test code = 412) PLATELET COUNT (BEAKER) (test 172 K/CU MM 150-450 code = 756) MEAN PLATELET VOLUME (BEAKER) 9.8 fL 9.4-12.4 (test code = 754) NUCLEATED RED BLOOD CELLS 0 /100 WBC 0-0 (BEAKER) (test code = 413) NEUTROPHILS RELATIVE PERCENT 79 % (BEAKER) (test code = 429) LYMPHOCYTES RELATIVE PERCENT 11 % (BEAKER) (test code = 430) MONOCYTES RELATIVE PERCENT 10 % (BEAKER) (test code = 431) EOSINOPHILS RELATIVE PERCENT 0 % (BEAKER) (test code = 432) BASOPHILS RELATIVE PERCENT 0 % (BEAKER) (test code = 437) NEUTROPHILS ABSOLUTE COUNT 9.77 K/ L 1.78-5.38 H (BEAKER) (test code = 670) LYMPHOCYTES ABSOLUTE COUNT 1.34 K/ L 1.32-3.57 (BEAKER) (test code = 414) MONOCYTES ABSOLUTE COUNT (BEAKER) 1.24 K/ L 0.30-0.82 H (test code = 415) EOSINOPHILS ABSOLUTE COUNT 0.00 K/ L 0.04-0.54 L (BEAKER) (test code = 416) BASOPHILS ABSOLUTE COUNT (BEAKER) 0.02 K/ L 0.01-0.08 (test code = 417) IMMATURE GRANULOCYTES-RELATIVE 0 % 0-1 PERCENT (BEAKER) (test code = 2801) BASIC METABOLIC [id number] 16:41:17 Test Item Value Reference Range Interpretation Comments SODIUM (BEAKER) 138 meq/L 136-145 (test code = 381) POTASSIUM 3.7 meq/L 3.5-5.1 (BEAKER) (test code = 379) CHLORIDE (BEAKER) 105 meq/L 98-107 (test code = 382) CO2 (BEAKER) 22 meq/L 22-29 (test code = 355) BLOOD UREA 11 mg/dL 7-21 NITROGEN (BEAKER) (test code = 354) CREATININE 1.06 mg/dL 0.57-1.25 (BEAKER) (test code = 358) GLUCOSE RANDOM 150 mg/dL 70-105 H (BEAKER) (test code = 652) CALCIUM (BEAKER) 8.3 mg/dL 8.4-10.2 L (test code = 697) EGFR (BEAKER) 73 Interpretatio n of eGFR (test code = mL/min/1.73 values Stage De scription 1092) sq m Result G1 Bree l or high >=90 G2 Mildly decreased 60-89 G3a Mildl y to moderately 45-5 9 G3b Moderately to s everely 30-44 G4 Severl y decreased 15-29 G5 Kidney failure <15Reported eGF R is based on the CKD-EPI 2020 equation that d oes not use a race coefficientEsti mated GFR is not as accur ate as Creatinine Denisse marcelino in predicting glom erular filtration rate . Estimated GFR is not appl icable for dialysis patien ts [employer] Supervisor ID - BSHEMOGLOBIN AND [id number] 16:16:07 Test Item Value Reference Range Interpretation Comments HEMOGLOBIN (BEAKER) (test code = 15.4 GM/DL 13.7-17.5 410) HEMATOCRIT (BEAKER) (test code = 44.9 % 40.1-51.0 411) [employer] Supervisor ID - [id number] gas, [id number] 13:21:33 Test Item Value Reference Range Interpretation Comments pH, Arterial (test code 7.39 7.35-7.45 = 2744-1) pCO2, Arterial (test 38 See_Comment [Autom ated code = 2018-) message] The system which generated this result transmitted reference range : 35 - 45 mm Hg. The reference range was not used to interpret this result as normal/abnormal . pO2, Arterial (test 276 See_Comment H [Automa clarice code = 2703-7) message] The system which generated this result transmitted reference range : 80 - 90 mm Hg. The reference range was not used to interpret this result as normal/abnormal . O2 Sat, Arterial (test 99.6 % 96.0-97.0 H code = 2708-6) HCO3, Arterial (test 23 mmol/L 21-29 code = 1960-4) Base Excess, Arterial -1.7 mmol/L -2.0-3.0 (test code = 1925-7) Patient Temperature 36.5 (test code = 8310-5) FIO2 (test code = 1819) 79 Lab Interpretation Abnormal (test code = 36774-4) [id number] 13:21:33 Test Item Value Reference Range Interpretation Comments Calcium, Ion (test code = 1993-) 1.05 mmol/L 1.12-1.27 L pH, Blood (test code = 96952-9) 7.39 Lab Interpretation (test code = Abnormal 47650-7) [facility] [id number] 13:21:33 Test Item Value Reference Range Interpretation Comments Glucose (test code = 2345-7) 133 mg/dL 70-110 H Lab Interpretation (test code = Abnormal 51429-6) [facility] [id number] 13:21:33 Test Item Value Reference Range Interpretation Comments pH, Arterial (test code 7.39 7.35-7.45 = 2744-1) pCO2, Arterial (test 38 See_Comment [Autom ated code = 2019-8) message] The system which generated this result transmitted reference range : 35 - 45 mm Hg. The reference range was not used to interpret this result as normal/abnormal . pO2, Arterial (test 276 See_Comment H [Automa clarice code = 2703-7) message] The system which generated this result transmitted reference range : 80 - 90 mm Hg. The reference range was not used to interpret this result as normal/abnormal . O2 Sat, Arterial (test 99.6 % 96.0-97.0 H code = 2708-6) HCO3, Arterial (test 23 mmol/L 21-29 code = 1960-4) Base Excess, Arterial -1.7 mmol/L -2.0-3.0 (test code = 1925-7) Patient Temperature 36.5 (test code = 8310-5) FIO2 (test code = 1819) 79 Lab Interpretation Abnormal (test code = 04040-3) [facility] [id number] 13:21:33 Test Item Value Reference Range Interpretation Comments Calcium, Ion (test code = 1993-) 1.05 mmol/L 1.12-1.27 L pH, Blood (test code = 40842-0) 7.39 Lab Interpretation (test code = Abnormal 35625-5) [facility] [id number] 13:21:33 Test Item Value Reference Range Interpretation Comments Glucose (test code = 2345-7) 133 mg/dL 70-110 H Lab Interpretation (test code = Abnormal 82015-4) [facility] [id number] 13:21:33 Test Item Value Reference Range Interpretation Comments pH, Arterial (test code 7.39 7.35-7.45 = 2744-1) pCO2, Arterial (test 38 See_Comment [Autom ated code = 2018-11) message] The system which generated this result transmitted reference range : 35 - 45 mm Hg. The reference range was not used to interpret this result as normal/abnormal . pO2, Arterial (test 276 See_Comment H [Automa clarice code = 2703-7) message] The system which generated this result transmitted reference range : 80 - 90 mm Hg. The reference range was not used to interpret this result as normal/abnormal . O2 Sat, Arterial (test 99.6 % 96.0-97.0 H code = 2708-6) HCO3, Arterial (test 23 mmol/L code = 1960-4) Base Excess, Arterial -1.7 mmol/L -2.0-3.0 (test code = 1925-7) Patient Temperature 36.5 (test code = 8310-5) FIO2 (test code = 1819) 79 Lab Interpretation Abnormal (test code = 04040-6) [facility] [id number] 13:21:33 Test Item Value Reference Range Interpretation Comments Calcium, Ion (test code = 1994-3) 1.05 mmol/L 1.12-1.27 L pH, Blood (test code = 37851-9) 7.39 Lab Interpretation (test code = Abnormal 23468-0) [facility] [id number] 13:21:33 Test Item Value Reference Range Interpretation Comments Glucose (test code = 2345-7) 133 mg/dL 70-110 H Lab Interpretation (test code = Abnormal 93570-8) [facility] [id number] 13:21:33 Test Item Value Reference Range Interpretation Comments pH, Arterial (test code 7.39 7.35-7.45 = 2744-1) pCO2, Arterial (test 38 See_Comment [Autom ated code = 2018-11) message] The system which generated this result transmitted reference range : 35 - 45 mm Hg. The reference range was not used to interpret this result as normal/abnormal . pO2, Arterial (test 276 See_Comment H [Automa clarice code = 2703-7) message] The system which generated this result transmitted reference range : 80 - 90 mm Hg. The reference range was not used to interpret this result as normal/abnormal . O2 Sat, Arterial (test 99.6 % 96.0-97.0 H code = 2708-6) HCO3, Arterial (test 23 mmol/L -29 code = 1960-4) Base Excess, Arterial -1.7 mmol/L -2.0-3.0 (test code = 1925-7) Patient Temperature 36.5 (test code = 8310-5) FIO2 (test code = 1819) 79.0 Lab Interpretation Abnormal (test code = 00679-9) [facility] [id number] 13:21:33 Test Item Value Reference Range Interpretation Comments Calcium, Ion (test code = 1994-3) 1.05 mmol/L 1.12-1.27 L pH, Blood (test code = 10306-7) 7.39 Lab Interpretation (test code = Abnormal 45566-8) [facility] [id number] 13:21:33 Test Item Value Reference Range Interpretation Comments Glucose (test code = 2345-7) 133 mg/dL 70-110 H Lab Interpretation (test code = Abnormal 80090-0) [facility], [id number] 13:21:33 Test Item Value Reference Range Interpretation Comments pH, Arterial (test code 7.39 7.35-7.45 = 2744-1) pCO2, Arterial (test 38 See_Comment [Autom ated code = 2018-11) message] The system which generated this result transmitted reference range : 35 - 45 mm Hg. The reference range was not used to interpret this result as normal/abnormal . pO2, Arterial (test 276 See_Comment H [Automa clarice code = 2703-7) message] The system which generated this result transmitted reference range : 80 - 90 mm Hg. The reference range was not used to interpret this result as normal/abnormal . O2 Sat, Arterial (test 99.6 % 96.0-97.0 H code = 2708-6) HCO3, Arterial (test 23 mmol/L - code = 1960-4) Base Excess, Arterial -1.7 mmol/L -2.0-3.0 (test code = 1925-7) Patient Temperature 36.5 (test code = 8310-5) FIO2 (test code = 1819) 79 Lab Interpretation Abnormal (test code = 53962-3) [facility], [id number] 13:21:33 Test Item Value Reference Range Interpretation Comments Calcium, Ion (test code = 1993-) 1.05 mmol/L 1.12-1.27 L pH, Blood (test code = 53517-0) 7.39 Lab Interpretation (test code = Abnormal 36121-2) [facility] [id number] 13:21:33 Test Item Value Reference Range Interpretation Comments Glucose (test code = 2345-7) 133 mg/dL 70-110 H Lab Interpretation (test code = Abnormal 27926-4) [facility], [id number] 13:21:33 Test Item Value Reference Range Interpretation Comments CALCIUM IONIZED (BEAKER) (test 1.05 mmol/L 1.12-1.27 L code = 698) PH, BLOOD (BEAKER) (test code = 7.39 1810) BLOOD GAS, [id number] 13:21:33 Test Item Value Reference Range Interpretation Comments PH ARTERIAL (BEAKER) (test code = 7.39 7.35-7.45 383) PCO2 ARTERIAL (BEAKER) (test code 38 mm Hg 35-45 = 384) PO2 ARTERIAL (BEAKER) (test code 276 mm Hg 80-90 H = 385) O2 SATURATION ARTERIAL (BEAKER) 99.6 % 96.0-97.0 H (test code = 386) HCO3 ARTERIAL (BEAKER) (test code 23 mmol/L -29 = 388) BASE EXCESS ARTERIAL (BEAKER) -1.7 mmol/L -2.0-3.0 (test code = 387) PATIENT TEMPERATURE (BEAKER) 36.5 (test code = 1818) FIO2 (BEAKER) (test code = 1819) 79.0 GLUCOSE-STAT [id number] 13:21:33 Test Item Value Reference Range Interpretation Comments GLUCOSE RANDOM (BEAKER) (test code 133 mg/dL 70-110 H = 652) HGB/HCT (H&H)-Stat [id number] 13:20:35 Test Item Value Reference Range Interpretation Comments Hemoglobin (test code = 15.6 See_Comment [Au tomated message] 786-4) The system OMEGA MORGAN generated this result transmitted ref erence range: 13.0 - 1 6.8 GM/DL. The refe rence range was not u sed to interpret this result as normal/abnor mal. Hematocrit (test code = 46.0 % 40.0-50.0 4544-3) Lab Interpretation (test Normal code = 64192-0) [facility] Na-Stat [id number] 13:20:35 Test Item Value Reference Range Interpretation Comments Sodium (test code = 2951-2) 139 meq/L 136-145 Lab Interpretation (test code = Normal 37877-7) [facility] [id number] 13:20:35 Test Item Value Reference Range Interpretation Comments Potassium (test code = 2823-3) 3.9 meq/L 3.6-5.5 Lab Interpretation (test code = Normal 51092-2) [facility] [id number] 13:20:35 Test Item Value Reference Range Interpretation Comments Hemoglobin (test code = 15.6 See_Comment [Au tomated message] 786-4) The system [employer] MORGAN generated this result transmitted ref erence range: 13.0 - 1 6.8 GM/DL. The refe rence range was not u sed to interpret this result as normal/abnor mal. Hematocrit (test code = 46.0 % 40.0-50.0 4544-3) Lab Interpretation (test Normal code = 74924-3) [facility] Na-Stat [id number] 13:20:35 Test Item Value Reference Range Interpretation Comments Sodium (test code = 2951-2) 139 meq/L 136-145 Lab Interpretation (test code = Normal 89136-4) [facility] [id number] 13:20:35 Test Item Value Reference Range Interpretation Comments Potassium (test code = 2823-3) 3.9 meq/L 3.6-5.5 Lab Interpretation (test code = Normal 96810-9) [facility] [id number] 13:20:35 Test Item Value Reference Range Interpretation Comments Hemoglobin (test code = 15.6 See_Comment [Au tomated message] 786-4) The system [employer] MORGAN generated this result transmitted ref erence range: 13.0 - 1 6.8 GM/DL. The refe rence range was not u sed to interpret this result as normal/abnor mal. Hematocrit (test code = 46.0 % 40.0-50.0 4544-3) Lab Interpretation (test Normal code = 18704-6) [facility] Na-Stat [id number] 13:20:35 Test Item Value Reference Range Interpretation Comments Sodium (test code = 2951-2) 139 meq/L 136-145 Lab Interpretation (test code = Normal 29575-5) [facility] [id number] 13:20:35 Test Item Value Reference Range Interpretation Comments Potassium (test code = 2823-3) 3.9 meq/L 3.6-5.5 Lab Interpretation (test code = Normal 16204-2) [facility] [id number] 13:20:35 Test Item Value Reference Range Interpretation Comments Hemoglobin (test code = 15.6 See_Comment [Au tomated message] 786-4) The system [employer] generated this result transmitted ref erence range: 13.0 - 1 6.8 GM/DL. The refe rence range was not u sed to interpret this result as normal/abnor mal. Hematocrit (test code = 46.0 % 40.0-50.0 4544-3) Lab Interpretation (test Normal code = 36160-5) [facility] Na-Stat [id number] 13:20:35 Test Item Value Reference Range Interpretation Comments Sodium (test code = 2951-2) 139 meq/L 136-145 Lab Interpretation (test code = Normal 27975-1) [facility] [id number] 13:20:35 Test Item Value Reference Range Interpretation Comments Potassium (test code = 2823-3) 3.9 meq/L 3.6-5.5 Lab Interpretation (test code = Normal 14053-3) [facility] [id number] 13:20:35 Test Item Value Reference Range Interpretation Comments Hemoglobin (test code = 15.6 See_Comment [Au tomated message] 786-4) The system [employer] generated this result transmitted ref erence range: 13.0 - 1 6.8 GM/DL. The refe rence range was not u sed to interpret this result as normal/abnor mal. Hematocrit (test code = 46.0 % 40.0-50.0 4544-3) Lab Interpretation (test Normal code = 23520-6) [facility] [id number] 13:20:35 Test Item Value Reference Range Interpretation Comments Sodium (test code = 2951-2) 139 meq/L 136-145 Lab Interpretation (test code = Normal 12607-3) [facility] [id number] 13:20:35 Test Item Value Reference Range Interpretation Comments Potassium (test code = 2823-3) 3.9 meq/L 3.6-5.5 Lab Interpretation (test code = Normal 41857-1) [facility] [id number] 13:20:35 Test Item Value Reference Range Interpretation Comments SODIUM (BEAKER) (test code = 381) 139 meq/L 136-145 POTASSIUM-STAT [id number] 13:20:35 Test Item Value Reference Range Interpretation Comments POTASSIUM (BEAKER) (test code = 3.9 meq/L 3.6-5.5 379) HGB/HCT (H&H) - STAT [id number] 13:20:35 Test Item Value Reference Range Interpretation Comments HEMOGLOBIN (BEAKER) (test code = 15.6 GM/DL 13.0-16.8 410) HEMATOCRIT (BEAKER) (test code = 46.0 % 40.0-50.0 411) CALCIUM, [id number] 10:18:48 Test Item Value Reference Range Interpretation Comments CALCIUM IONIZED (BEAKER) (test 1.09 mmol/L 1.12-1.27 L code = 698) PH, BLOOD (BEAKER) (test code = 7.37 1810) BLOOD GAS, [id number] 10:18:42 Test Item Value Reference Range Interpretation Comments PH ARTERIAL (BEAKER) (test code = 7.39 7.35-7.45 383) PCO2 ARTERIAL (BEAKER) (test code 41 mm Hg 35-45 = 384) PO2 ARTERIAL (BEAKER) (test code 162 mm Hg 80-90 H = 385) O2 SATURATION ARTERIAL (BEAKER) 99.1 % 96.0-97.0 H (test code = 386) HCO3 ARTERIAL (BEAKER) (test code 24 mmol/L 21-29 = 388) BASE EXCESS ARTERIAL (BEAKER) -1.0 mmol/L -2.0-3.0 (test code = 387) PATIENT TEMPERATURE (BEAKER) 36.0 (test code = 1818) FIO2 (BEAKER) (test code = 1819) 55.0 GLUCOSE-STAT [id number] 10:18:36 Test Item Value Reference Range Interpretation Comments GLUCOSE RANDOM (BEAKER) (test code 123 mg/dL 70-110 H = 652) SODIUM NA-STAT [id number] 10:16:39 Test Item Value Reference Range Interpretation Comments SODIUM (BEAKER) (test code = 381) 138 meq/L 136-145 POTASSIUM-STAT [id number] 10:16:39 Test Item Value Reference Range Interpretation Comments POTASSIUM (BEAKER) (test code = 3.5 meq/L 3.6-5.5 L 379) HGB/HCT (H&H) - STAT [id number] 10:16:39 Test Item Value Reference Range Interpretation Comments HEMOGLOBIN (BEAKER) (test code = 15.5 GM/DL 13.0-16.8 410) HEMATOCRIT (BEAKER) (test code = 46.0 % 40.0-50.0 411)
[2023-02-08 23:38] LABS: Absolute Lymphocytes (CBC) 0.9 K/uL (0.7-4.9); Hematocrit 46.8 % (39.6-49.0); Lymphocytes % 12.5 % (15.3-44.8); MCV 90.7 fL (80-100); MPV 7.5 fL (7.6-11.3); Platelets 201 thou/uL (152-406); RBC Red Blood Cell Count 5.16 M/uL (4.33-5.43)
[2023-02-08 23:43] LABS: Potassium 3.6 mEq/L (3.5-5.1)
--- NOTE | 2023-02-09 00:17 | ER ---
Nurse's Notes [facility] Name: Toño Currie Age: 77 yrs Sex: Male : 1945 Arrival Date: 02/08/2023 Time: 21:03 Bed 9 Private MD: Diagnosis: Essential (primary) hypertension;Tachycardia, unspecified-resolved Presentation: 02/08 21:23 Chief complaint: Patient states: had surgery today for a cyst on my back. BP and pulse lg3 was high at home. 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 Coronavirus screen: Client denies travel out of the [place] in the last 14 days. At this time, the client does not indicate any symptoms associated with coronavirus-19. Ebola Screen: No symptoms or risks identified at this time. Initial Sepsis Screen: Does the patient meet any 2 criteria? No. Patient's initial sepsis screen is negative. Does the patient have a suspected source of infection? No. Patient's initial sepsis screen is negative. Risk Assessment: Do you want to hurt yourself or someone else? Patient reports no desire to harm self or others. Onset of symptoms was February 08, 2023. 21:23 Method Of Arrival: Ambulatory lg3 21:23 Acuity: MISTI 4 lg3 Triage Assessment: 21:25 General: Appears in no apparent distress. comfortable, Behavior is calm, cooperative. lg3 Pain: Denies pain. EENT: No deficits noted. No signs and/or symptoms were reported regarding the EENT system. Neuro: No deficits noted. Moon Agitation-Sedation Scale (RASS): 0 - Alert and Calm Level of Consciousness is awake, alert, obeys commands, Oriented to person, place, time, situation. Cardiovascular: No deficits noted. Denies chest pain, shortness of breath, Capillary refill < 3 seconds Clubbing of nail beds is absent JVD is absent Patient's skin is warm and dry. Respiratory: No deficits noted. Airway is patent Trachea midline Respiratory effort is even, unlabored, Respiratory pattern is regular, symmetrical. GI: No deficits noted. No signs and/or symptoms were reported involving the gastrointestinal system. : No deficits noted. No signs and/or symptoms were reported regarding the genitourinary system. Derm: No deficits noted. No signs and/or symptoms reported regarding the dermatologic system. Musculoskeletal: No deficits noted. No signs and/or symptoms reported regarding the musculoskeletal system. Circulation, motion, and sensation intact. Range of motion: intact in all extremities. Historical: - Allergies: 21:25 No Known Allergies; lg3 - Home Meds: 21:25 amlodipine 5 mg tab 1 tab once daily [Active]; lovastatin 20 mg Oral Tb24 1 tab once lg3 daily [Active]; - PMHx: 21:25 Hypercholesterolemia; Hypertension; lg3 - PSHx: 21:25 cyst removal from back (Hypertension); lg3 - Immunization history:: Adult Immunizations up to date. - Social history:: Smoking status: Patient denies any tobacco usage or history of. Patient uses alcohol, occasionally. Patient/guardian denies using street drugs. Screenin:59 [facility] ED Fall Risk Assessment (Adult) History of falling in the last 3 months, vc1 including since admission No falls in past 3 months (0 pts) Confusion or Disorientation No (0 pts) Intoxicated or Sedated No (0 pts) Impaired Gait No (0 pts) Mobility Assist Device Used No (0 pt) Altered Elimination No (0 pt) Score/Fall Risk Level 0 - 2 = Low Risk Oriented to surroundings, Maintained a safe environment, Educated pt \T\ family on fall prevention, incl call for assistance when getting out of bed. Abuse screen: Denies threats or abuse. Nutritional screening: No deficits noted. Tuberculosis screening: No symptoms or risk factors identified. Assessment: 22:59 Reassessment: No changes from previously documented assessment. Patient and/or family vc1 updated on plan of care and expected duration. Pain level reassessed. Patient is alert, oriented x 3, equal unlabored respirations, skin warm/dry/pink. 23:00 Pain: Denies pain. Pain does not radiate. Pain began. vc1 02/09 00:11 Reassessment: No changes from previously documented assessment. Patient and/or family vc1 updated on plan of care and expected duration. Pain level reassessed. Patient is alert, oriented x 3, equal unlabored respirations, skin warm/dry/pink. Vital Signs: 02/08 21:23 BP 159 / 60; Pulse 95; Resp 17 S; Temp 98.2(O); Pulse Ox 97% on R/A; Weight 83.91 kg lg3 (R); Height 5 ft. 9 in. (R); 22:59 BP 159 / 84; Pulse 94; Resp 17; Pulse Ox 100% ; vc1 02/09 00:00 BP 147 / 75; Pulse 73; Resp 18; Pulse Ox 98% ; vc1 02/08 21:23 Body Mass Index 27.32 (83.91 kg, 175.26 cm) lg3 ED Course: 02/08 21:04 Patient arrived in ED. jj6 21:25 Triage completed. lg3 21:25 Arm band placed on right wrist. lg3 21:32 Ladonna Kerns FNP-C is PHCP. kb 21:32 Dhruv Varghese MD is Attending Physician. kb 22:17 Noreen Raines, RN is Primary Nurse. vc1 22:59 Inserted saline lock: 20 gauge in right antecubital area, using aseptic technique. vc1 Blood collected. 23:00 Patient has correct armband on for positive identification. Bed in low position. Call vc1 light in reach. Client placed on continuous cardiac and pulse oximetry monitoring. NIBP monitoring applied. 23:00 Basic Metabolic Panel Sent. vc1 23:00 CBC with Diff Sent. vc1 02/09 00:19 Provided Education on: hydration and rest. vc1 00:19 No provider procedures requiring assistance completed. Patient maintains SpO2 vc1 saturation greater than 95% on room air. 00:29 IV discontinued, intact, bleeding controlled, No redness/swelling at site. Pressure vc1 dressing applied. Administered Medications: No medications were administered Medication: 02/08 23:00 VIS not applicable for this client. vc1 Outcome: 02/09 00:17 Discharge ordered by . kb 00:29 Discharged to home ambulatory, with significant other, vc1 00:29 Condition: good 00:29 Discharge instructions given to patient, Instructed on discharge instructions, follow up and referral plans. Demonstrated understanding of instructions, follow-up care, 00:29 Patient left the ED. vc1 Signatures: Ladonna Kerns FNP-C FNP-Ckb Gibson, Lacie RN RN 3 Jaye Honeycutt j6 Noreen Raines, ANGELA RN vc1
--- NOTE | 2023-02-09 00:17 | EDPHYS ---
Physician Documentation [facility] Name: Toño Currie Age: 77 yrs Sex: Male : 1945 Arrival Date: 02/08/2023 Time: 21:03 Bed 9 Private MD: ED Physician Dhruv Varghese HPI: 02/08 22:51 This 77 yrs old Male presents to ER via Ambulatory with complaints of Irregular Pulse. kb 22:51 Patient is a 77-year-old male who presents for elevated blood pressure and heart rate kb that he noticed just prior to arrival. States he had general anesthesia this morning for cyst removal, was discharged at 2 PM. Was given codeine prior to discharge and took his first Cipro at 630. Denies shortness of breath, chest pain, palpitations. Historical: - Allergies: 21:25 No Known Allergies; lg3 - Home Meds: 21:25 amlodipine 5 mg tab 1 tab once daily [Active]; lovastatin 20 mg Oral Tb24 1 tab once lg3 daily [Active]; - PMHx: 21:25 Hypercholesterolemia; Hypertension; lg3 - PSHx: 21:25 cyst removal from back (Hypertension); lg3 - Immunization history:: Adult Immunizations up to date. - Social history:: Smoking status: Patient denies any tobacco usage or history of. Patient uses alcohol, occasionally. Patient/guardian denies using street drugs. ROS: 22:50 Constitutional: Negative for fever, chills, and weight loss, kb 22:50 All other systems are negative, Exam: 22:50 Constitutional: This is a well developed, well nourished patient who is awake, alert, kb and in no acute distress. Head/Face: Normocephalic, atraumatic. ENT: Moist Mucous membranes Cardiovascular: Regular rate Respiratory: Respirations even and unlabored. No increased work of breathing. Talking in full sentences Abdomen/GI: Soft, non-tender. No distention Skin: Warm, dry with normal turgor. Normal color. MS/ Extremity: Pulses equal, no cyanosis. Neurovascular intact. Full, normal range of motion. Neuro: Awake and alert, GCS 15, oriented to person, place, time, and situation. Moves all extremities. Normal gait. 22:55 ECG was reviewed by the Attending Physician. kb Vital Signs: 21:23 BP 159 / 60; Pulse 95; Resp 17 S; Temp 98.2(O); Pulse Ox 97% on R/A; Weight 83.91 kg lg3 (R); Height 5 ft. 9 in. (R); 22:59 BP 159 / 84; Pulse 94; Resp 17; Pulse Ox 100% ; vc1 02/09 00:00 BP 147 / 75; Pulse 73; Resp 18; Pulse Ox 98% ; vc1 02/08 21:23 Body Mass Index 27.32 (83.91 kg, 175.26 cm) lg3 MDM: 02/08 21:32 Patient medically screened. kb 22:50 Data reviewed: vital signs, nurses notes. kb 22:51 Differential diagnosis: Arrhythmia, abnormal EKG, dehydration, medication reaction. kb 02/09 00:10 Counseling: I had a detailed discussion with the patient and/or guardian regarding the kb historical points, exam findings, and any diagnostic results supporting the discharge/admit diagnosis, lab results, the need for outpatient follow up, a family practitioner, to return to the emergency department if symptoms worsen or persist or if there are any questions or concerns that arise at home. 02/08 22:17 Order name: CBC with Diff kb 02/08 22:17 Order name: Basic Metabolic Panel; Complete Time: 23:52 kb 02/08 21:32 Order name: EKG; Complete Time: 21:33 kb 02/08 21:32 Order name: EKG - Nurse/Tech; Complete Time: 23:00 kb 02/08 22:17 Order name: IV Start; Complete Time: 23:00 kb EC/08 22:55 Rate is 78 beats/min. Rhythm is regular. QRS [place] is Normal. ND interval is normal at kb 2002 msec. QRS interval is normal at 130 msec. QT interval is normal at 465 msec. Administered Medications: No medications were administered Disposition Summary: 02/09/23 00:17 Discharge Ordered Notes: Location: Home kb Condition: Stable kb Diagnosis - Essential (primary) hypertension kb - Tachycardia, unspecified - resolved kb Followup: kb - With: Emergency Department - When: As needed - Reason: Worsening of condition Followup: kb - With: Private Physician - When: 2 - 3 days - Reason: Recheck today's complaints, Continuance of care, Re-evaluation by your physician Discharge Instructions: - Discharge Summary Sheet kb - Hypertension, Adult, [id number] kb - Sinus Tachycardia kb Forms: - Medication Reconciliation Form kb - Thank You Letter kb - Antibiotic Education kb - Prescription Opioid Use kb - Patient Portal Instructions kb - Leadership Thank You Letter kb Signatures: Dispatcher [employer] Ladonna Almanza, FIRE MARSHAL REFINERY-C ANOOP-Jessica Cabrera, RN RN lg3
[2023-02-09 00:37] VITALS: TEMP 98.2
[2023-02-09 00:39] VITALS: BP 147/75; O2SAT 98
[2023-02-09 01:07] LABS: Blood Morphology Comment NOT SEEN (NOT SEEN); Platelet Estimate ADEQ
--- NOTE | 2023-02-11 14:17 | EKG ---
Test Date: 2023-02-08 Test Time: 23:44:13 Laborer General: HEATHER MEASUREMENT RESULTS: Intervals: Rate: 78 MI: 200 QRSD: 130 QT: 408 QTc: 465 [place]: P: 65 MI: 200 QRS: 65 T: 53 INTERPRETIVE STATEMENTS: Sinus rhythm with marked sinus arrhythmia Right bundle branch block Abnormal ECG Compared to ECG 02/08/2023 10:00:59 No significant changes Electronically Signed On 02-11-23 14:09:33 MORGUE KEEPER by Jaret Jarrett
== END 2023-02-09 00:29 | disposition home or self-care (01) ==
LOC: ER 21:03
DX: I10 Essential (primary) hypertension (principal)
CPT/HCPCS: 36415; 80048; 85025; 93005; 99284

== ENCOUNTER 2023-11-23 09:59 | Emergency (ER) | payer OTHER, MEDICARE ==
[2023-11-23 10:34] LABS: Absolute Basophils 0.1 K/uL (0-0.5); Absolute Eosinophils 0.4 K/uL (0-0.5); Absolute Lymphocytes (CBC) 2.7 K/uL (0.7-4.9); Absolute Monocytes 0.8 K/uL (0.1-1.3); Absolute Neutrophil 2.7 K/uL (1.8-8.0); Basophils % 0.9 % (0-1.3); Hematocrit 48.8 % (39.6-49.0); Hemoglobin 16.2 g/dL (13.6-17.9); Lymphocytes % 40.3 % (15.3-44.8); MCH 30.7 pg (27.0-35.0); MCHC 33.3 g/dL (32.0-36.0); MCV 92.2 fL (80-100); MPV 7.7 fL (7.6-11.3); Monocytes % 11.6 % (3.3-12.3); Neutrophils % 41.2 % (41.7-73.7); Platelets 193 thou/uL (152-406); RBC Red Blood Cell Count 5.29 M/uL (4.33-5.43)
[2023-11-23 10:49] LABS: PT Prothrombin Time 11.1 SECONDS (9.4-12.5); Protime INR 0.99
[2023-11-23 10:54] LABS: Anion Gap 8.6 mEq/L (5.0-15.0); Potassium 3.6 mEq/L (3.5-5.1); Troponin High Sensitivity 7.1 pg/mL (<58.9)
--- NOTE | 2023-11-23 11:05 | RAD REPORT ---
EXAM DESCRIPTION: Ayla Single View11/23/2023 10:58 am CLINICAL HISTORY: Palpitations COMPARISON: 2022 FINDINGS: The lungs appear clear of acute infiltrate. The heart is normal size IMPRESSION: No acute abnormalities displayed
--- NOTE | 2023-11-23 11:34 | ER ---
Nurse's Notes [facility] Name: Toño Currie Age: 78 yrs Sex: Male : 1945 Arrival Date: 11/23/2023 Time: 09:59 Bed 18 Private MD: Diagnosis: Unspecified atrial flutter Presentation: 11/22 10:23 Chief complaint: Patient states: "Around 0830 this morning, I started having mb9 palpitations. My HR kept going high, then back to normal, then high again. I don't have SOB or CP.". Coronavirus screen: Vaccine status: Patient reports receiving the 2nd dose of the covid vaccine. Ebola Screen: No symptoms or risks identified at this time. Initial Sepsis Screen: Does the patient meet any 2 criteria? No. Patient's initial sepsis screen is negative. Does the patient have a suspected source of infection? No. Patient's initial sepsis screen is negative. Risk Assessment: Do you want to hurt yourself or someone else? Patient reports no desire to harm self or others. Onset of symptoms was November 23, 2023. 10:23 Acuity: MISTI 2 mb9 10:23 Method Of Arrival: Ambulatory mb9 Triage Assessment: 10:25 General: Appears in no apparent distress. Behavior is calm, cooperative. Pain: Denies mb9 pain. EENT: No signs and/or symptoms were reported regarding the EENT system. Neuro: Moon Agitation-Sedation Scale (RASS): 0 - Alert and Calm Level of Consciousness is awake, alert, obeys commands, Oriented to person, place, time, situation, Appropriate for age. Cardiovascular: Heart tones S1 S2 present Patient's skin is warm and dry. Rhythm is atrial flutter. Respiratory: Airway is patent Respiratory effort is even, unlabored, Respiratory pattern is regular, symmetrical, Breath sounds are clear bilaterally. GI: Abdomen is round non-distended, Bowel sounds present X 4 quads. Abd is soft and non tender X 4 quads. : No signs and/or symptoms were reported regarding the genitourinary system. Derm: Skin is pink, warm \\T\\ dry. Musculoskeletal: Range of motion: intact in all extremities. Historical: - Allergies: 10:24 No Known Allergies; mb9 - Home Meds: 10:24 amlodipine 5 mg tab 1 tab once daily [Active]; lovastatin 20 mg Oral Tb24 1 tab once mb9 daily [Active]; - PMHx: 10:24 Hypercholesterolemia; Hypertension; mb9 - PSHx: 10:24 cyst removal from back (en); prostate removal (cyst removal from back); mb9 - Immunization history:: Adult Immunizations up to date. - Infectious Disease History:: Denies. - Social history:: Smoking status: Patient denies any tobacco usage or history of. Screenin:26 [facility] ED Fall Risk Assessment (Adult) History of falling in the last 3 months, mb9 including since admission No falls in past 3 months (0 pts) Confusion or Disorientation No (0 pts) Intoxicated or Sedated No (0 pts) Impaired Gait No (0 pts) Mobility Assist Device Used No (0 pt) Altered Elimination No (0 pt) Score/Fall Risk Level 0 - 2 = Low Risk Oriented to surroundings, Maintained a safe environment, Educated pt \\T\\ family on fall prevention, incl call for assistance when getting out of bed. Abuse screen: Denies threats or abuse. Nutritional screening: No deficits noted. Tuberculosis screening: No symptoms or risk factors identified. Assessment: 10:27 Reassessment: see triage assessment. mb9 11:29 Reassessment: No changes from previously documented assessment. Patient and/or family mb9 updated on plan of care and expected duration. Pain level reassessed. Patient is alert, oriented x 3, equal unlabored respirations, skin warm/dry/pink. Vital Signs: 10:23 BP 154 / 84; Pulse 102; Resp 16; Temp 98; Pulse Ox 100% ; Weight 82.1 kg; Height 5 ft. mb9 9 in. ; Pain 0/10; 10:57 BP 134 / 66; Pulse 94; Resp 16; Pulse Ox 96% on R/A; mb9 11:40 BP 145 / 84; Pulse 73; Resp 18; Pulse Ox 100% on R/A; ar6 10:23 Body Mass Index 26.73 (82.10 kg, 175.26 cm) mb9 10:23 Pain Scale: Adult mb9 ED Course: 10:02 Patient arrived in ED. ec2 10:07 Jer Salcedo MD is Attending Physician. ec2 10:22 Kenzie Nieves RN is Primary Nurse. mb9 10:23 Arm band placed on. mb9 10:23 EKG done, by ED staff, reviewed by Jer Salcedo MD. Initial lab(s) drawn, by nh, sent mb9 to lab. Inserted saline lock: 20 gauge in right forearm, using aseptic technique. Blood collected. Flushed with 10 mL NS. 10:24 Triage completed. mb9 10:27 Placed in gown. Bed in low position. Call light in reach. Side rails up X 1. Provided mb9 Education on: press call light if needing anything. Client placed on continuous cardiac and pulse oximetry monitoring. NIBP monitoring applied. bus monitor on. Door closed. Noise minimized. Warm blanket given. Pillow given. 10:27 No provider procedures requiring assistance completed. mb9 11:00 XRAY Chest (1 view) In Process Unspecified. EDMS 11:33 Jaret Jarrett MD is Referral Physician. ec2 11:41 IV discontinued, intact, bleeding controlled, No redness/swelling at site. Pressure ar6 dressing applied. Administered Medications: No medications were administered Medication: 10:27 VIS not applicable for this client. mb9 Outcome: 11:33 Discharge ordered by . ec2 11:40 Discharged to home ambulatory, ar6 11:40 Condition: stable 11:40 Discharge instructions given to patient, significant other, Instructed on discharge instructions, follow up and referral plans. medication usage, Demonstrated understanding of instructions, follow-up care, medications, Prescriptions given X 2, 11:51 Patient left the ED. mb9 Signatures: Dispatcher [employer] Kenzie Norwood RN RN mb9 Jer Salcedo MD MD ec2 Linda Esqueda RN RN ar6
--- NOTE | 2023-11-23 11:34 | EDPHYS ---
Physician Documentation [facility] Name: Toño Currie Age: 78 yrs Sex: Male : 1945 Arrival Date: 11/23/2023 Time: 09:59 Bed 18 Private MD: ED Physician Jer Salcedo HPI: 11/22 10:21 This 78 yrs old Male presents to ER via Unassigned with complaints of ec2 Palpitations, High heart rate. 10:21 Patient arrives today for evaluation of palpitations. Patient reports that has been ec2 experiencing palpitations throughout the day. Patient reports no chest pain or difficulty breathing. Patient reports no actual vomiting or diarrhea. States he has had issues with palpitations in the past. Patient reports no blood thinners, is not on any AV carmen blocking agents. Is on amlodipine for hypertension, atorvastatin for hyperlipidemia.. Historical: - Allergies: 10:24 No Known Allergies; mb9 - Home Meds: 10:24 amlodipine 5 mg tab 1 tab once daily [Active]; lovastatin 20 mg Oral Tb24 1 tab once mb9 daily [Active]; - PMHx: 10:24 Hypercholesterolemia; Hypertension; mb9 - PSHx: 10:24 cyst removal from back (en); prostate removal (cyst removal from back); mb9 - Immunization history:: Adult Immunizations up to date. - Infectious Disease History:: Denies. - Social history:: Smoking status: Patient denies any tobacco usage or history of. ROS: 10:21 Constitutional: as per hpi ec2 Exam: 10:21 Constitutional: GEN: NAD Head: atraumatic Eyes: EOMI Ears: External ears are ec2 normal. CV: Irregular rhythm LUNGS: no respiratory distress ABD: non-distended SKIN: no evidence of rashes MSK: no evidence of trauma Vital Signs: 10:23 BP 154 / 84; Pulse 102; Resp 16; Temp 98; Pulse Ox 100% ; Weight 82.1 kg; Height 5 ft. mb9 9 in. ; Pain 0/10; 10:57 BP 134 / 66; Pulse 94; Resp 16; Pulse Ox 96% on R/A; mb9 11:40 BP 145 / 84; Pulse 73; Resp 18; Pulse Ox 100% on R/A; ar6 10:23 Body Mass Index 26.73 (82.10 kg, 175.26 cm) mb9 10:23 Pain Scale: Adult mb9 MDM: 10:11 Patient medically screened. ec2 10:23 Data reviewed: vital signs. ED course: Patient arrives today for palpitations. EKG ec2 independently reviewed and interpreted by me, was shows atrial flutter, rate of 92, no acute ST segment elevations, intervals are nonconcerning, variable block noted. Will obtain lab work, chest x-ray. Differential diagnosis includes arrhythmia as diagnosed above, electrolyte disturbances, ACS. 11:04 ED course: Metabolic profile is reassuring. CBC reassuring, troponin within normal ec2 ranges. INR at 0.99.. 11:32 ED course: Patient follows with Dr. Jarrett, discussed with Dr. Jarrett who instructed me ec2 to discuss with Dr. Edwards as he is covering for him. I will start the patient on Eliquis and Toprol XL 25 daily. updated the patient, will discharge and have him follow-up outpatient with cardiology. Return precautions given.. 11/22 10:21 Order name: Basic Metabolic Panel; Complete Time: 11:03 ec2 11/22 10:21 Order name: CBC with Diff; Complete Time: 11:03 ec2 11/22 10:21 Order name: PT-INR; Complete Time: 11:03 ec2 11/22 10:21 Order name: Troponin HS; Complete Time: 11:03 ec2 11/22 10:21 Order name: XRAY Chest (1 view); Complete Time: 11:19 ec2 11/22 10:21 Order name: EKG; Complete Time: 10:21 ec2 11/22 10:21 Order name: Cardiac monitoring; Complete Time: 10:28 ec2 11/22 10:21 Order name: EKG - Nurse/Tech; Complete Time: 10:28 ec2 11/22 10:21 Order name: IV Saline Lock; Complete Time: 10:28 ec2 11/22 10:21 Order name: Labs collected and sent; Complete Time: 10:28 ec2 11/22 10:21 Order name: O2 Per Protocol; Complete Time: 10:28 ec2 11/22 10:21 Order name: O2 Sat Monitoring; Complete Time: 10:28 ec2 Administered Medications: No medications were administered Disposition Summary: 11/23/23 11:33 Discharge Ordered Notes: Location: Home ec2 Condition: Stable ec2 Diagnosis - Unspecified atrial flutter ec2 Followup: ec2 - With: Jaret Jarrett MD - When: - Reason: Recheck today's complaints Discharge Instructions: - Discharge Summary Sheet ec2 - Atrial Flutter ec2 Forms: - Medication Reconciliation Form ec2 - Antibiotic Education ec2 - Prescription Opioid Use ec2 - Patient Portal Instructions ec2 - Leadership Thank You Letter ec2 Prescriptions: - apixaban 5 mg (74 tabs) Oral Tablet, Dose Pack - take 1 unit ORAL route per package directions; 1 unit; Refills: 0, Product ec2 Selection Permitted - Toprol XL 25 mg Oral Tablet, Extended Release 24 hr - take 1 tablet ORAL route once daily; 30 tablet; Refills: 0, Product Selection ec2 Permitted Signatures: Dispatcher [employer] Kenzie Norwood RN RN mb9 eJr Salcedo MD MD ec2
[2023-11-23 12:09] VITALS: TEMP 98
[2023-11-23 12:16] VITALS: BP 145/84; O2SAT 100
--- NOTE | 2023-11-24 13:31 | EKG ---
Test Date: 2023-11-23 Test Time: 10:20:30 Overedger: KIRK MEASUREMENT RESULTS: Intervals: Rate: 92 [place]: QRSD: 120 QT: 366 QTc: 452 [place]: P: 258 [place]: QRS: 69 T: 45 INTERPRETIVE STATEMENTS: Atrial flutter with variable AV block Right bundle branch block Abnormal ECG Compared to ECG 02/08/2023 23:44:13 Sinus rhythm no longer present Sinus arrhythmia no longer present Electronically Signed On 11-24-23 13:28:08 CDT by Ivan Michelle
== END 2023-11-23 11:51 | disposition home or self-care (01) ==
LOC: ER 09:59
DX: I48.92 Unspecified atrial flutter (principal); I10 Essential (primary) hypertension; E78.00 Pure hypercholesterolemia, unspecified
CPT/HCPCS: 36415; 71045; 80048; 84484; 85025; 85610; 93005; 99284